=== PATIENT | male | born 1950 | race Hispanic/Latino ===

== ENCOUNTER 2017-04-22 12:06 | Inpatient (IN) | payer MEDICARE, OTHER ==
[2017-04-22 12:06] VITALS: BMI 25.7
[2017-04-22] MEDS ORDERED: Tdap Vaccine 0.5 ml Vial (10-64 yrs) IM ONE ×2 (12:50→13:59)
[2017-04-22] MEDS ORDERED: Piperacillin/Tazobact 4.5 GM in Sodium Chloride 0.9% 100 ML IVPB STA (12:51)
--- NOTE | 2017-04-22 12:58 | ED PDOC ---
Lower Extremity Pain/Injury Time Seen by Provider: 04/22/17 12:33 Chief Complaint (Nursing): Lower Extremity Problem/Injury Chief Complaint (Provider): R foot infection History Per: Patient History/Exam Limitations: no limitations Additional Complaint(s): Pt states he stepped on sharp metal object few days ago, was evaluated by Personnel Security Specialist and advised admission for IV Abx. Pt reports chills yesterday. Denies fever. Past Medical History Reviewed: Nursing Documentation, Vital Signs Vital Signs: Last Vital Signs Temp 98.0 F 04/22/17 12:12 Pulse 89 04/22/17 12:12 Resp 16 04/22/17 12:12 BP 132/70 04/22/17 12:12 Pulse Ox 100 04/22/17 12:12 - Medical History PMH: Diabetes - Family History Family History: States: Unknown Family Hx - Social History Current smoker - smoking cessation education provided: No - Home Medications Home Medications: Ambulatory Orders Medication Instructions Recorded Dulaglutide [Trulicity] 1.5 mg SC QWK 04/22/17 Insulin Detemir [Levemir] 60 - 70 unit SC HS 04/22/17 Insulin Lispro [Humalog Kwikpen 30 unit SC TIDPC 04/22/17 U-200] Ramipril [Altace] 10 mg PO DAILY 04/22/17 Testosterone Cypionate [Testone 1 ml IM Q14D 04/22/17 Cik] - Allergies Allergies/Adverse Reactions: Allergies Allergy/AdvReac Type Severity Reaction Status Date / Time No Known Allergies Allergy Verified 04/22/17 12:12 Review of Systems Constitutional: Positive for: Chills. Negative for: Fever, Weakness, Malaise Cardiovascular: Negative for: Chest Pain Respiratory: Negative for: Cough Musculoskeletal: Positive for: Foot Pain Skin: Positive for: Lesions. Negative for: Rash Neurological: Negative for: Weakness, Numbness Physical Exam - Reviewed Nursing Documentation Reviewed: Yes Vital Signs Reviewed: Yes - Physical Exam Appears: Positive for: Well, No Acute Distress Skin: Positive for: Normal Color, Warm, Dry Eye Exam: Positive for: Normal appearance, EOMI, PERRL Cardiovascular/Chest: Positive for: Regular Rate, Rhythm Respiratory: Positive for: Normal Breath Sounds Extremity: Positive for: Pedal Edema, Other (R FOOT: Ecchymosis 5th digit, macerated skin plantar aspect, edema, induration, no crepitus.) - Laboratory Results Result Diagrams: 04/22/17 13:45 04/22/17 13:45 - ECG Interpretation Of ECG: NSR @ 77, no ST-T changes. O2 Sat by Pulse Oximetry: 100 Pulse Ox Interpretation: Normal Medical Decision Making Medical Decision Makin yo male with R foot cellulitis and puncture wound. - labs - CXR - EKG - XR R foot - Vancomycin - Zosyn - Podiatry consult Time: 15:03 Chest X-Ray FINDINGS: LUNGS: Slightly diminished pulmonary volume causes some crowding of bilateral basilar bronchovascular markings. No infiltrate identified bilaterally. PLEURA: No significant pleural effusion identified. No pneumothorax apparent. CARDIOVASCULAR: Vascular markings appear increased and raise question potential CHF. Clinically correlate further. OSSEOUS STRUCTURES: No significant abnormalities. VISUALIZED UPPER ABDOMEN: Normal. OTHER FINDINGS: None. IMPRESSION: Mildly diminished inspiratory volume causes crowding of the bronchovascular markings bilaterally. Borderline CHF pattern. Time: 15:10 Right Foot X-Ray FINDINGS: BONES: Lucencies suspicious for osteomyelitis is noted at the medial proximal phalanx base 5th digit and the head of the 5th metatarsal medially. Chronic deformities of the distal 1st and 3rd mature metatarsals are appreciated which may be postoperative or post infectious from healed infections. Similar deformities are identified at the proximal portions of the 1st and 3rd phalanges as well. Postoperative changes seen status post ostectomy of the base of the proximal phalanx 2nd digit with limited deformity of the 2nd metatarsal distally. No focal erosions are appreciated or periosteal reaction to suggest active osteomyelitis at this time. Extensive soft tissue edema seen throughout the forefoot. MRI is advised for follow up to exclude potential osteomyelitis as plain film radiography can miss early osteomyelitis. No emphysematous soft tissue changes are appreciated to suggest gas producing bacterial organism. JOINTS: Degenerative changes are seen throughout the right foot joints not affected by postop or postinfectious changes described above. SOFT TISSUES: Normal. OTHER FINDINGS: None. IMPRESSION: Lucency at the base of the proximal phalanx 5th digit and also at the head of the 5th metacarpal metatarsal is suspicious for osteomyelitis. Follow-up MRI recommended. Deformity of multiple phalanges and dizziness identified as discussed above from postoperative or postinfectious changes likely now healed. Disposition - Clinical Impression Clinical Impression: Cellulitis in diabetic foot - Patient ED Disposition Is Patient to be Admitted: Yes - Disposition Disposition Time: 13:21 Condition: STABLE - Pt Status Changed To: Hospital Disposition Of: Inpatient - Admit Certification Admit to Inpatient:: After my assessment, the patient will require hospitalization for at least two midnights. This is because of the severity of symptoms shown, intensity of services needed, and/or the medical risk in this patient being treated as an outpatient. - POA Present On Arrival: None
--- NOTE | 2017-04-22 13:12 | CP.PCM.CON ---
History of Present Illness - History of Present Illness History of Present Illness: Podiatry Consult Note - Dr. Olmedo 67 year old male patient PMHx IDDM, HTN seen and evaluated in ED for right foot infection and 5th digit ischemia. Patient was sent to ED following his appointment with Dr. Olmedo earlier today. Patient reports last week Wednesday, while he was cleaning his garage, he stepped on a thin piece of wire that punctured his shoe and went into his foot; did not seek treatment at that time. Patient first noticed purple discoloration to his 5th toe yesterday, after he spent the day walking around with a sock jammed in the tip of his shoe. Patient also admits to seeing drainage from a wound on the bottom of his foot, and had been putting Neosporin in his wound until his scheduled appointment with Dr. Olmedo. Patient reports mild pain to his 4th and 5th toes. Admits to having chills and general malaise last night. Currently, denies N/V/F/D/C/SOB. PMHx: IDDM, HTN, hx of OM PSH: Right 2nd metatarsal head resection, right foot I&D, tonsilectomy FH: DM SH: admits to ETOH use, denies tobacco/illicit drug use All: NKDA Review of Systems - Review of Systems All systems: reviewed and no additional remarkable complaints except (as per HPI ) Past Patient History - Past Social History Smoking Status: Never Smoked - NEUROLOGICAL Hx Neurological Disorder: Yes Other/Comment: DIABETIC NEUROPATHY - ENDOCRINE/METABOLIC Hx Endocrine Disorders: Yes Hx Diabetes Mellitus Type 1: Yes - PSYCHIATRIC Hx Substance Use: No - SURGICAL HISTORY Hx Surgeries: Yes Hx Musculoskeletal Surgery: Yes (RT FOOT SURGERY) - ANESTHESIA Hx Anesthesia: Yes Hx Anesthesia Reactions: No Meds Allergies/Adverse Reactions: Allergies Allergy/AdvReac Type Severity Reaction Status Date / Time No Known Allergies Allergy Verified 04/22/17 12:12 - Medications Medications: Current Medications Vancomycin HCl 1 gm/ Sodium (Chloride) 250 mls @ 166.667 mls/hr IVPB STAT STA PRN Reason: Protocol Stop: 04/22/17 14:20 Piperacillin Sod/Tazobactam (Sod 4.5 gm/ Sodium Chloride) 100 mls @ 100 mls/hr IVPB STAT STA PRN Reason: Protocol Stop: 04/22/17 13:50 Physical Exam - Constitutional Appears: Well, Non-toxic, No Acute Distress - Extremities Exam Additional comments: RLE focused physical exam VASC: DP and PT pulses palpable 2/4. CFT <3 seconds to digits 1-4, unable to be assessed 5th digit. Temperature gradient warm to warm, mild increase in warmth around plantar ulceration, 5th digit cool to touch. Nonpitting edema noted to right foot. NEURO: Gross sensation diminished. DERM: Ulceration noted to plantar aspect of 4th interspace measuring approximately 0.5 x 0.5 x 3cm - ulcer noted to have a 100% granular base and erythema periwound; serosanguinous drainage noted; (-)probe to bone; absent purulence; overlying skin erosion; no fluctuance. Well-healed cicatrices on dorsum of 2nd metatarsal, 3rd IS, and sub met 2. ORTHO: Pain on palpation 4th digit, no pain on palpation 5th digit. Muscle strength 5/5 for all dorsiflexors, plantarflexors, inverters, and everters. - Neurological Exam Neurological exam: Alert, Oriented x3 - Psychiatric Exam Psychiatric exam: Normal Affect, Normal Mood Results - Vital Signs Recent Vital Signs: Last Vital Signs Temp 98.0 F 04/22/17 12:12 Pulse 89 04/22/17 12:12 Resp 16 04/22/17 12:12 BP 132/70 04/22/17 12:12 Pulse Ox 100 04/22/17 12:12 - Labs Result Diagrams: 04/22/17 13:45 04/22/17 13:45 Assessment & Plan - Assessment and Plan (Free Text) Assessment: 67 year old male with 1) right foot plantar ulceration secondary to trauma 2) 5th digit ischemia vs. gangrene Plan: Patient seen and evaluated Discussed with attending, Dr. Olmedo Afebrile, WBC 14.4, ESR 87 Right foot XR ordered: Lucency at the base of hte proximal phalanx 5th digit and also at the head of the 5th metatarsal is suspicious for OM Right foot plantar ulcer WCx obtained Received dose of Vancomycin and Zosyn in ED Patient to be admitted for right foot infx Cardio consult - Dr. Rankin ID consult - Dr. Dhaliwal Surgical shoe ordered - PWB to right heel only PT consult ordered Podiatry will continue to follow while in house
[2017-04-22 14:00] LABS: BASO % 0.3 % (0.0-2.0); EOS # 0.1 K/uL (0.0-0.7); EOS % 0.7 % (0.0-4.0); LYMPH # 0.7 K/uL (1.0-4.3); LYMPH % 4.9 % (20.0-40.0); MEAN CORPUSCULAR HEMOGLOBIN 34.3 pg (27.0-31.0); MEAN PLATELET VOLUME 8.7 fl (7.2-11.7); MONO # 1.6 K/uL (0.0-0.8); MONO % 11.3 % (0.0-10.0); NEUT # 11.9 K/uL (1.8-7.0); NEUT % 82.8 % (50.0-75.0); NRBC % 0.1 % (0.0-0.0); PLATELET COUNT 173 K/uL (130-400); RBC 4.39 Mil/uL (4.40-5.90); RED CELL DISTRIBUTION WIDTH 13.2 % (11.5-14.5); WHITE BLOOD COUNT 14.4 K/uL (4.8-10.8)
[2017-04-22 14:05] LABS: VENOUS BLOOD GAS BASE EXCESS 3.6 mmol/L (0.0-2.0); VENOUS BLOOD GAS PCO2 52 mmHg (40-60); VENOUS BLOOD GAS PO2 13 mm/Hg (30-55); VENOUS BLOOD PH 7.37 (7.32-7.43)
[2017-04-22 14:08] LABS: ALB/GLOB RATIO 1.2 (1.0-2.1); ALT/SGPT 31 U/L (21-72); AST/SGOT 28 U/L (17-59); BLOOD UREA NITROGEN 16 mg/dl (9-20); CALCIUM 9.5 mg/dL (8.4-10.2); GFR AFRICAN-AMERICAN > 60; GFR NON-AFRICAN AMERICAN > 60
[2017-04-22 14:11] LABS: INR 1.1 (0.9-1.2); PARTIAL THROMBOPLASTIN TIME 27.4 Seconds (25.6-37.1); PROTHROMBIN TIME 12.4 Seconds (9.8-13.1)
[2017-04-22 14:40] LABS: SQUAMOUS EPITHIAL 1 /hpf (0-5); URINE BILIRUBIN NEGATIVE (NEGATIVE); URINE BLOOD SMALL (NEGATIVE); URINE CLARITY SLIGHTY-CLOUDY (Clear); URINE COLOR YELLOW (YELLOW); URINE GLUCOSE (UA) 150 mg/dL (Normal); URINE LEUKOCYTE ESTERASE NEG Leu/uL (Negative); URINE PROTEIN 30 mg/dL (NEGATIVE); URINE UROBILINOGEN 0.2-1.0 mg/dL (0.2-1.0)
--- NOTE | 2017-04-22 15:05 | RAD ---
HISTORY: Admission COMPARISON: Chest radiographs 03/15/2012. TECHNIQUE: Chest PA and lateral FINDINGS: LUNGS: Slightly diminished pulmonary volume causes some crowding of bilateral basilar bronchovascular markings. No infiltrate identified bilaterally. PLEURA: No significant pleural effusion identified. No pneumothorax apparent. CARDIOVASCULAR: Vascular markings appear increased and raise question potential CHF. Clinically correlate further. OSSEOUS STRUCTURES: No significant abnormalities. VISUALIZED UPPER ABDOMEN: Normal. OTHER FINDINGS: None. IMPRESSION: Mildly diminished inspiratory volume causes crowding of the bronchovascular markings bilaterally. Borderline CHF pattern.
--- NOTE | 2017-04-22 15:11 | RAD ---
PROCEDURE: Right Foot Radiographs. HISTORY: Puncture wound COMPARISON: Right foot radiographs 03/16/2012 prior FINDINGS: BONES: Lucencies suspicious for osteomyelitis is noted at the medial proximal phalanx base 5th digit and the head of the 5th metatarsal medially. Chronic deformities of the distal 1st and 3rd mature metatarsals are appreciated which may be postoperative or post infectious from healed infections. Similar deformities are identified at the proximal portions of the 1st and 3rd phalanges as well. Postoperative changes seen status post ostectomy of the base of the proximal phalanx 2nd digit with limited deformity of the 2nd metatarsal distally. No focal erosions are appreciated or periosteal reaction to suggest active osteomyelitis at this time. Extensive soft tissue edema seen throughout the forefoot. MRI is advised for follow up to exclude potential osteomyelitis as plain film radiography can miss early osteomyelitis. No emphysematous soft tissue changes are appreciated to suggest gas producing bacterial organism. JOINTS: Degenerative changes are seen throughout the right foot joints not affected by postop or postinfectious changes described above. SOFT TISSUES: Normal. OTHER FINDINGS: None. IMPRESSION: Lucency at the base of the proximal phalanx 5th digit and also at the head of the 5th metacarpal metatarsal is suspicious for osteomyelitis. Follow-up MRI recommended. Deformity of multiple phalanges and dizziness identified as discussed above from postoperative or postinfectious changes likely now healed.
[2017-04-22 15:23] LABS: LYMPHOCYTE 4 % (20-50); MONOCYTE 10 % (0-10); NEUTROPHIL 86 % (42-75); PLATELET ESTIMATE NORMAL (NORMAL); TOTAL CELLS COUNTED 100
--- NOTE | 2017-04-22 18:10 | CP.PCM.HP ---
History of Present Illness - History of Present Illness History of Present Illness: Cc: Right foot wound A 67 year old male with a pmhx of IDDM type 2, diabetic neuropathy and previous right foot surgery who was sent to the ED by his business practices supervisor for right foot cellulitis and puncture wound with drainage. The patient states he stepped on a sharp metal a few days ago in his garage but did not notice any wound until a couple of days ago when he noticed a purplish discoloration to his 5th right digit. States he had an appt with his business practices supervisor so just decide to wait until the appointment. Denies pain or inability to walk. Denies fever, chills, cp, sob , nausea or vomiting. Present on Admission - Present on Admission Any Indicators Present on Admission: Yes History of Uncontrolled Diabetes: Yes Review of Systems - Review of Systems All systems: reviewed and no additional remarkable complaints except (as stated) - Constitutional Constitutional: As Per HPI - Cardiovascular Cardiovascular: As Per HPI - Respiratory Respiratory: As Per HPI - Gastrointestinal Gastrointestinal: As Per HPI - Musculoskeletal Musculoskeletal: As Per HPI - Integumentary Integumentary: As Per HPI - Neurological Neurological: As Per HPI - Endocrine Endocrine: As Per HPI Past Patient History - Past Medical History & Family History Past Medical History?: Yes - Past Social History Smoking Status: Never Smoked - NEUROLOGICAL Hx Neurological Disorder: Yes Other/Comment: DIABETIC NEUROPATHY - ENDOCRINE/METABOLIC Hx Endocrine Disorders: Yes Hx Diabetes Mellitus Type 1: Yes - MUSCULOSKELETAL/RHEUMATOLOGICAL Hx Falls: No - PSYCHIATRIC Hx Substance Use: No - SURGICAL HISTORY Hx Surgeries: Yes Hx Musculoskeletal Surgery: Yes (RT FOOT SURGERY) - ANESTHESIA Hx Anesthesia: Yes Hx Anesthesia Reactions: No Meds Allergies/Adverse Reactions: Allergies Allergy/AdvReac Type Severity Reaction Status Date / Time No Known Allergies Allergy Verified 04/22/17 12:12 Physical Exam - Constitutional Appears: Well, No Acute Distress - Head Exam Head Exam: ATRAUMATIC, NORMOCEPHALIC - Eye Exam Eye Exam: EOMI, Normal appearance, PERRL Pupil Exam: NORMAL ACCOMODATION - ENT Exam ENT Exam: Mucous Membranes Moist - Neck Exam Neck exam: Positive for: Full Rom, Normal Inspection - Respiratory Exam Respiratory Exam: Clear to Auscultation Bilateral, NORMAL BREATHING PATTERN - Cardiovascular Exam Cardiovascular Exam: REGULAR RHYTHM, +S1, +S2 - GI/Abdominal Exam GI & Abdominal Exam: Normal Bowel Sounds, Soft - Rectal Exam Rectal Exam: Deferred - Extremities Exam Extremities exam: Positive for: pedal pulses present Additional comments: Right LE wound on the ball of the foot, serous drainage noted. Swelling and cellulitis around the wound B/l extremities warm to touch with slight skin discoloration on lower parts of both legs - Back Exam Back exam: FULL ROM, NORMAL INSPECTION - Neurological Exam Neurological exam: Alert, Oriented x3 - Psychiatric Exam Psychiatric exam: Normal Affect, Normal Mood - Skin Skin Exam: Dry, Normal Color, Warm Results - Vital Signs Recent Vital Signs: Last Vital Signs Temp 98.5 F 04/22/17 16:28 Pulse 81 04/22/17 16:28 Resp 20 04/22/17 16:28 BP 143/78 04/22/17 16:28 Pulse Ox 100 04/22/17 16:45 - Labs Result Diagrams: 04/24/17 05:30 04/23/17 05:55 Labs: Laboratory Results - last 24 hr 04/22/17 04/22/17 04/22/17 13:45 13:45 13:45 WBC 14.4 H RBC 4.39 L Hgb 15.0 Hct 44.3 MCV 101.0 H MCH 34.3 H MCHC 34.0 RDW 13.2 Plt Count 173 MPV 8.7 Neut % (Auto) 82.8 H Lymph % (Auto) 4.9 L [place] % (Auto) 11.3 H Eos % (Auto) 0.7 Baso % (Auto) 0.3 Neut # (Auto) 11.9 H Lymph # (Auto) 0.7 L [place] # (Auto) 1.6 H Eos # (Auto) 0.1 Baso # (Auto) 0.0 Neutrophils % (Manual) 86 H Lymphocytes % (Manual) 4 L Monocytes % (Manual) 10 Platelet Estimate Normal Macrocytosis (manual) Slight ESR 87 H PT 12.4 INR 1.1 APTT 27.4 pO2 VBG pH VBG pCO2 VBG HCO3 VBG Total CO2 VBG O2 Sat (Calc) VBG Base Excess VBG Potassium Glucose Lactate FiO2 Sodium 137 Potassium 3.6 Chloride 97 L Carbon Dioxide 27 Anion Gap 17 BUN 16 Creatinine 0.8 Est GFR ( Amer) > 60 Est GFR (Non-Af Amer) > 60 Random Glucose 161 H Calcium 9.5 Total Bilirubin 1.1 AST 28 ALT 31 Alkaline Phosphatase 80 Total Protein 7.5 Albumin 4.0 Globulin 3.5 Albumin/Globulin Ratio 1.2 Venous Blood Potassium Urine Color Urine Clarity Urine pH Ur Specific Harmans Urine Protein Urine Glucose (UA) Urine Ketones Urine Blood Urine Nitrate Urine Bilirubin Urine Urobilinogen Ur Leukocyte Esterase Urine RBC (Auto) Urine Microscopic WBC Ur Squamous Epith Cells 04/22/17 04/22/17 14:00 14:15 WBC RBC Hgb Hct MCV MCH MCHC RDW Plt Count MPV Neut % (Auto) Lymph % (Auto) [place] % (Auto) Eos % (Auto) Baso % (Auto) Neut # (Auto) Lymph # (Auto) [place] # (Auto) Eos # (Auto) Baso # (Auto) Neutrophils % (Manual) Lymphocytes % (Manual) Monocytes % (Manual) Platelet Estimate Macrocytosis (manual) ESR PT INR APTT pO2 13 L VBG pH 7.37 VBG pCO2 52 VBG HCO3 25.5 VBG Total CO2 31.7 H VBG O2 Sat (Calc) 20.1 L VBG Base Excess 3.6 H VBG Potassium 3.3 L Glucose 161 H Lactate 1.6 FiO2 21.0 Sodium 134.0 Potassium Chloride 99.0 Carbon Dioxide Anion Gap BUN Creatinine Est GFR ( Amer) Est GFR (Non-Af Amer) Random Glucose Calcium Total Bilirubin AST ALT Alkaline Phosphatase Total Protein Albumin Globulin Albumin/Globulin Ratio Venous Blood Potassium 3.3 L Urine Color Yellow Urine Clarity Slighty-cloudy Urine pH 6.0 Ur Specific Harmans 1.025 Urine Protein 30 Urine Glucose (UA) 150 Urine Ketones 20 Urine Blood Small Urine Nitrate Negative Urine Bilirubin Negative Urine Urobilinogen 0.2-1.0 Ur Leukocyte Esterase Neg Urine RBC (Auto) 8 H Urine Microscopic WBC 2 Ur Squamous Epith Cells 1 - Imaging and Cardiology Foot x-ray Additional comment: PROCEDURE: Right Foot Radiographs. HISTORY: Puncture wound COMPARISON: Right foot radiographs 03/16/2012 prior FINDINGS: BONES: Lucencies suspicious for osteomyelitis is noted at the medial proximal phalanx base 5th digit and the head of the 5th metatarsal medially. Chronic deformities of the distal 1st and 3rd mature metatarsals are appreciated which may be postoperative or post infectious from healed infections. Similar deformities are identified at the proximal portions of the 1st and 3rd phalanges as well. Postoperative changes seen status post ostectomy of the base of the proximal phalanx 2nd digit with limited deformity of the 2nd metatarsal distally. No focal erosions are appreciated or periosteal reaction to suggest active osteomyelitis at this time. Extensive soft tissue edema seen throughout the forefoot. MRI is advised for follow up to exclude potential osteomyelitis as plain film radiography can miss early osteomyelitis. No emphysematous soft tissue changes are appreciated to suggest gas producing bacterial organism. JOINTS: Degenerative changes are seen throughout the right foot joints not affected by postop or postinfectious changes described above. SOFT TISSUES: Normal. OTHER FINDINGS: None. IMPRESSION: Lucency at the base of the proximal phalanx 5th digit and also at the head of the 5th metacarpal metatarsal is suspicious for osteomyelitis. Follow-up MRI recommended. Deformity of multiple phalanges and dizziness identified as discussed above from postoperative or postinfectious changes likely now healed. Chest x-ray Additional comment: COMPARISON: Chest radiographs 03/15/2012. TECHNIQUE: Chest PA and lateral FINDINGS: LUNGS: Slightly diminished pulmonary volume causes some crowding of bilateral basilar bronchovascular markings. No infiltrate identified bilaterally. PLEURA: No significant pleural effusion identified. No pneumothorax apparent. CARDIOVASCULAR: Vascular markings appear increased and raise question potential CHF. Clinically correlate further. OSSEOUS STRUCTURES: No significant abnormalities. VISUALIZED UPPER ABDOMEN: Normal. OTHER FINDINGS: None. IMPRESSION: Mildly diminished inspiratory volume causes crowding of the bronchovascular markings bilaterally. Borderline CHF pattern. [ Reading ] [ Conclusion ] Assessment & Plan (1) Cellulitis in diabetic foot Status: Acute Priority: High (2) Osteomyelitis Status: Acute Priority: High (3) Diabetes mellitus with hyperglycemia Status: Acute - Assessment and Plan (Free Text) Assessment: 67 year old male with right foot cellulitis and puncture wound with possible osteomyelitis. Plan: Foot x-ray - suspicion for Osteomyelitis F/u MRI wound cultures Antibiotics with Vanco and Zosyn ID consult Podiatry follow up Endocrinology consult Cardiovascular consult DVT prophylaxis
[2017-04-22] MEDS ORDERED: Gadodiamide 287 MG/ML VIAL (15ML) IV ONE (18:56)
[2017-04-22] MEDS: Insulin Detemir 100 Units/ml Inj SC SCH (21:40)
[2017-04-22] MEDS ORDERED: Insulin Lispro (humaLOG) 100 Units/ml Inj SC SCH (22:00)
[2017-04-23] MEDS: Piperacillin/Tazobact 3.375 GM in Sodium Chloride 0.9% 100 ML IVPB SCH ×3 (01:19→17:08)
--- NOTE | 2017-04-23 02:07 | CON ---
ENDOCRINOLOGY CONSULTATION DATE: LOCATION: Room 662. HISTORY OF PRESENT ILLNESS: This is a 67-year-old male, very well-known to me from outpatient diabetic followup who presents to his [employer] today with a right foot plantar ulceration with supervening cellulitis and has now been admitted for further workup and management and is also being referred for diabetic evaluation and management. PAST MEDICAL HISTORY: As mentioned above; history of type 2 insulin-requiring diabetes on a combination of Humalog given as 30 units subcu t.i.d. before meals with Levemir, actually it has been changed to Tresiba at 70 units subcu at bedtime daily as ordered. He is also on Trulicity given as 1.5 mg subcu once a week as ordered, history of hypertensive cardiovascular disease and dyslipidemia, history of erectile dysfunction and secondary hypogonadism and currently on testosterone cypionate injections given every 2 weeks as ordered. His latest hemoglobin A1c done in the fall of last year was actually 9.2% which is actually elevated with suboptimal metabolic control as noted. History of diabetic polyneuropathy with underlying vasculopathy. He also had prior history of right lower extremity cellulitis and osteomyelitis and resection of the second digit in the right foot as noted. FAMILY HISTORY: Positive for hypertension and heart disease. SOCIAL HISTORY: The patient is and has a supportive and family. No known substance use. REVIEW OF SYSTEMS: As mentioned above; admits to episodic bouts of dizziness and lightheadedness with easy fatigability and tiredness and suboptimal energy level. No chest pains or palpitations or PND. His oral intake has been good with occasional dietary indiscretion. No recent alterations of bowel and urinary patterns. PHYSICAL EXAMINATION GENERAL: This is an average built male in no apparent distress. VITAL SIGNS: Blood pressure of 130/80, pulse of 70 beats per minute regular, temperature 98, respirations 20, height is 6 feet 2 inches and weight is 250 pounds. HEENT: Head normocephalic. Eyes anicteric with pink conjunctivae. Funduscopy not possible at this time. Ears, nose and throat otherwise normal. NECK: Supple. Thyroid gland is normal in size. No carotid bruits or cervical adenopathy. CARDIOPULMONARY: Some adynamic precordium. S1 and S2 is rapid and regular. LUNGS: Clear to auscultation. ABDOMEN: Flat and soft with positive bowel sounds. EXTREMITIES: No peripheral edema. Pulses are +2 bilaterally and the right foot shows a plantar ulceration in the fifth metatarsal area with serosanguineous discharge as noted and surrounding erythema, edema and induration as noted. LABORATORY DATA: His white count is 14.4, hemoglobin of 15, hematocrit of 44, MCV 101 and platelets 173. Sed rate is 87 and neutrophil count is 82.8. Chemistry showed a BUN of 16, sodium 137, potassium 3.6, chloride 97, CO2 of 27, glucose one 61 and creatinine 0.8. ASSESSMENT: This is a 67-year-old male with uncontrolled and decompensated type 2 insulin-requiring diabetes presenting here with a right foot cellulitis and concomitant neuropathic plantar ulceration with possible ischemia in the right fifth digit as noted. He has significant history of diabetic polyneuropathy and underlying peripheral arterial disease and vasculopathy. PLAN OF MANAGEMENT: As discussed with the patient and staff, we will modify his current insulin regimen and switch him over to a more physiologic basal and bolus insulin drug combination as ordered. We will start him with Humalog given as 12 units subcu t.i.d. before meals as ordered. We will continue the basal insulin given as Levemir at 60 units subcu at bedtime daily as ordered. We will modify the coverage scale to a very low dose algorithm using Humalog insulin to hypoglycemia and detailed orders have been given. A hemoglobin A1c will be done to confirm his prior glycemic control and baseline thyroid function studies and lipid panel have been ordered. We will also add a total and free testosterone level with a LH and FSH and prolactin hormonal assays added for tomorrows labs as noted. We will initiate diabetic education and dietary instructions also at the time of this admission. We will follow and advise accordingly. Nanette Blake MD
[2017-04-23 06:41] LABS: BASO % 0.4 % (0.0-2.0); EOS # 0.2 K/uL (0.0-0.7); EOS % 1.7 % (0.0-4.0); HEMOGLOBIN 14.2 g/dL (12.0-18.0); LYMPH # 0.8 K/uL (1.0-4.3); LYMPH % 7.8 % (20.0-40.0); MEAN CELL VOLUME 101.6 fl (80.0-94.0); MEAN CORPUSCULAR HEMOGLOBIN 34.7 pg (27.0-31.0); MEAN CORPUSCULAR HGB CONC 34.1 g/dL (33.0-37.0); MONO # 1.4 K/uL (0.0-0.8); MONO % 12.9 % (0.0-10.0); NEUT # 8.4 K/uL (1.8-7.0); NEUT % 77.2 % (50.0-75.0); RBC 4.09 Mil/uL (4.40-5.90); WHITE BLOOD COUNT 10.8 K/uL (4.8-10.8)
[2017-04-23 06:53] LABS: BLOOD UREA NITROGEN 12 mg/dl (9-20); CALCIUM 8.9 mg/dL (8.4-10.2); GFR AFRICAN-AMERICAN > 60; GFR NON-AFRICAN AMERICAN > 60; HDL CHOLESTEROL 24 MG/DL (30-70)
[2017-04-23 06:59] LABS: LDL CHOLESTEROL 116 mg/dL (0-129)
[2017-04-23 07:04] LABS: FSH < 0.7 mIU/mL
[2017-04-23] MEDS: Insulin Lispro (humaLOG) 100 Units/ml Inj SC SCH ×7 (07:26→21:29)
--- NOTE | 2017-04-23 08:27 | CP.PCM.PN ---
Subjective - Date & Time of Evaluation Date of Evaluation: 04/23/17 Time of Evaluation: 08:24 - Subjective Subjective: Podiatry Progress Note - Dr. Olmedo 67 year old male patient seen and evaluated at bedside for right foot infection and 5th digit ischemia. Patient hemodynamically stable and NAD. Sister and present at bedside. No acute events overnight. Dressing soaked through with drainage. Denies any pain to right foot. Denies N/V/F/D/C/SOB/calf pain. Objective - Vital Signs/Intake and Output Vital Signs (last 24 hours): Temp Pulse Resp BP Pulse Ox 98.5 F 79 19 131/75 96 04/23/17 08:11 04/23/17 08:11 04/23/17 08:11 04/23/17 08:11 04/23/17 08:11 - Medications Medications: Current Medications Enoxaparin Sodium (Lovenox) 40 mg SC DAILY [facility] PRN Reason: Protocol Home Med (Dulaglutide [Trulicity]) 1.5 mg SC QWK [facility] Piperacillin Sod/Tazobactam (Sod 3.375 gm/ Sodium Chloride) 100 mls @ 100 mls/ hr IVPB Q8 [facility] PRN Reason: Protocol Last Admin: 04/23/17 01:19 Dose: 100 mls/hr Vancomycin HCl 1 gm/ Sodium (Chloride) 250 mls @ 250 mls/hr IVPB Q12@0200,1400 [facility] PRN Reason: Protocol Last Admin: 04/23/17 02:28 Dose: 250 mls/hr Influenza Virus Vaccine (Afluria (Pf)(18yr & Older)) 0.5 ml IM .ONCE ONE Stop: 04/23/17 09:01 Insulin Detemir (Levemir) 60 units SC HS [facility] Last Admin: 04/22/17 21:40 Dose: 60 units Insulin Human Lispro (Humalog) 0 units SC ACHS [facility] PRN Reason: Protocol Last Admin: 04/23/17 07:26 Dose: Not Given Insulin Human Lispro (Humalog) 12 units SC AC [facility] Ramipril (Altace) 10 mg PO DAILY [facility] - Labs Labs: 04/23/17 05:55 04/23/17 05:55 PT 12.4 Seconds (9.8-13.1) 04/22/17 13:45 INR 1.1 (0.9-1.2) 04/22/17 13:45 APTT 27.4 Seconds (25.6-37.1) 04/22/17 13:45 - Constitutional Appears: Well, Non-toxic, No Acute Distress - Extremities Exam Additional comments: RLE focused physical exam VASC: DP and PT pulses palpable 2/4. CFT <3 seconds to digits 1-4, unable to be assessed 5th digit. Temperature gradient warm to warm, mild increase in warmth around plantar ulceration, 5th digit cool to touch. Nonpitting edema noted to right foot. NEURO: Gross sensation diminished. DERM: Ulceration noted to plantar aspect of 4th interspace measuring approximately 0.5 x 0.5 x 3cm - ulcer noted to have a 100% granular base and erythema periwound; serosanguinous drainage noted; (-)probe to bone; absent purulence; overlying skin erosion; no fluctuance. Dusky/ischemic discoloration noted to 5th digit with necrotic tissue to medial aspect. Well-healed cicatrices on dorsum of 2nd metatarsal, 3rd IS, and sub met 2. ORTHO: Pain on palpation 4th digit, no pain on palpation 5th digit. Muscle strength 5/5 for all dorsiflexors, plantarflexors, inverters, and everters. - Neurological Exam Neurological Exam: Alert, Awake, Oriented x3 - Psychiatric Exam Psychiatric exam: Normal Affect, Normal Mood Assessment and Plan - Assessment and Plan (Free Text) Assessment: 67 year old male with 1) right foot plantar ulceration secondary to trauma 2) 5th digit ischemia vs. gangrene Plan: Patient seen and evaluated with attending, Dr. Olmedo Afebrile, WBC 10.8, ESR 87 Right foot XR (04/22/17): Lucency at the base of the proximal phalanx 5th digit and also at the head of the 5th metatarsal is suspicious for OM Right foot MRI (04/22/17): Osteomyelitis at the proximal phalanx great toe and at the distal segment of the 1st metatarsal bone with phlegmon or abscess at 1st MPJ likely. Early OM not completely excluded at distal segment 5th metatarsal bone and proximal phalanx of digit. Diffuse cellulitis throughout forefoot evident Bilateral arterial duplex (04/22/17) -No significant stenosis identified at the bilateral lower extremity major arteries although low velocity but triphasic waveform is identified at the left anterior tibial a. -Above the bilateral DP arteries appear widely patent as well as the posterior tibia arteries Right foot plantar ulcer WCx - (prelim) gram positive cocci Continue IV abx - Vancomycin 1g IV, Zosyn 3.375g IV ID consult - Dr. Dhaliwal, recs appreciated f/u Cardio consult - Dr. Rankin Possible OR Wednesday pending vascular eval Surgical shoe ordered - PWB to right heel only PT consult ordered Right foot cleansed with sterile saline and dressed with DSD Podiatry will continue to follow while in house
[2017-04-23] MEDS ORDERED: Influenza Vaccine 18yr & older 0.5 ML/45 MCG SYR IM ONE (09:00)
[2017-04-23] MEDS: Enoxaparin 40 mg Syringe SC SCH (09:50)
--- NOTE | 2017-04-23 10:59 | US ---
PROCEDURE: Duplex ultrasound of the bilateral lower extremity arteries. HISTORY: Right %th Toe Gangrene COMPARISON: None available. TECHNIQUE: Grayscale and duplex Doppler evaluation of the bilateral common femoral, superficial femoral, popliteal, posterior tibial and dorsalis pedis arteries was performed.. FINDINGS: RIGHT LOWER EXTREMITY: RIGHT COMMON FEMORAL ARTERY: Widely patent. Maximal flow velocity of 112 cm/s. RIGHT SUPERFICIAL FEMORAL ARTERY: Widely patent. Maximal flow velocity of 129 cm/s. RIGHT POPLITEAL ARTERY:Widely patent. Maximal flow velocity of 130 cm/s. RIGHT POSTERIOR TIBIAL ARTERY: Widely patent. Maximal flow velocity of 79 cm/s. RIGHT DORSALIS PEDIS ARTERY: Widely patent. Maximal flow velocity of 59 cm/s. The ANTERIOR TIBIAL ARTERY appears widely patent and measures 118 centimeters/second. LEFT LOWER EXTREMITY: LEFT COMMON FEMORAL ARTERY: Widely patent. Maximal flow velocity of 131 cm/s. LEFT SUPERFICIAL FEMORAL ARTERY: Widely patent. Maximal flow velocity of 89 cm/s. LEFT POPLITEAL ARTERY:Widely patent. Maximal flow velocity of 67 cm/s. LEFT POSTERIOR TIBIAL ARTERY: Widely patent. Maximal flow velocity of 113 cm/s. LEFT DORSALIS PEDIS ARTERY: Widely patent. Maximal flow velocity of 75 cm/s. The ANTERIOR TIBIAL ARTERY appears triphasic and is patent though with a low velocity of 28 centimeters/second. OTHER FINDINGS: None. IMPRESSION: No significant stenosis identified at the bilateral lower extremity major arteries although low velocity but triphasic waveform is identified at the left anterior tibial artery. Above the bilateral dorsalis pedis arteries appear widely patent as well as the posterior tibial arteries.
--- NOTE | 2017-04-23 12:42 | CP.PCM.CON ---
History of Present Illness - History of Present Illness History of Present Illness: 67 year old male patient PMHx IDDM, HTN seen and evaluated in ED for right foot infection and 5th digit ischemia. Patient reports last week Wednesday, while he was cleaning his garage, he stepped on a thin piece of wire that punctured his shoe and went into his foot; did not seek treatment at that time. Patient first noticed purple discoloration to his 5th toe yesterday, after he spent the day walking around with a sock jammed in the tip of his shoe. Patient also admits to seeing drainage from a wound on the bottom of his foot, and had been putting Neosporin in his wound Admits to having chills and general malaise last night. Currently, denies N/V/F/D/C/SOB. PMHx: IDDM, HTN, hx of OM PSH: Right 2nd metatarsal head resection, right foot I&D, tonsilectomy FH: DM SH: admits to ETOH use, denies tobacco/illicit drug use All: NKDA Review of Systems - Review of Systems All systems: reviewed and no additional remarkable complaints except - Constitutional Constitutional: As Per HPI - EENT Eyes: absent: As Per HPI, Blind Spots, Blurred Vision, Change in Vision, Decreased Night Vision, Diplopia, Discharge, Dry Eye, Exophthalmos, Floaters, Irritation, Itchy Eyes, Loss of Peripheral Vision, Pain, Photophobia, Requires Corrective Lenses, Sees Flashes, Spots in Vision, Tunnel Vision, Other Visual Disturbances, Loss of Vision, Other Ears: absent: As Per HPI, Decreased Hearing, Ear Discharge, Ear Pain, Tinnitus, Abnormal Hearing, Disequilibrium, Dizziness, Other Nose/Mouth/Throat: absent: As Per HPI, Epistaxis, Nasal Congestion, Nasal Discharge, Nasal Obstruction, Nasal Trauma, Nose Pain, Post Nasal Drip, Sinus Pain, Sinus Pressure, Bleeding Gums, Change in Voice, Dental Pain, Dry Mouth, Dysphagia, Halitosis, Hoarsness, Lip Swelling, Mouth Lesions, Mouth Pain, Odynophagia, Sore Throat, Throat Swelling, Tongue Swelling, Facial Pain, Neck Pain, Neck Mass, Other - Cardiovascular Cardiovascular: absent: As Per HPI, Acrocyanosis, Chest Pain, Chest Pain at Rest , Chest Pain with Activity, Claudication, Diaphoresis, Dyspnea, Dyspnea on Exertion, Edema, Irregular Heart Rhythm, Pain Radiating to Arm/Neck/Jaw, Leg Edema, Leg Ulcers, Lightheadedness, Orthopnea, Palpitations, Paroxysmal Nocturnal Dyspnea, Pedal Edema, Radiating Pain, Rapid Heart Rate, Slow Heart Rate, Syncope, Other - Respiratory Respiratory: absent: As Per HPI, Cough, Dyspnea, Hemoptysis, Dyspnea on Exertion , Wheezing, Snoring, Stridor, Pain on Inspiration, Chest Congestion, Excessive Mucous Production, Change in Mucous Color, Pain with Coughing, Other - Gastrointestinal Gastrointestinal: absent: As Per HPI, Abdominal Pain, Belching, Bloating, Change in Bowel Habits, Change in Stool Character, Coffee Ground Emesis, Constipation, Cramping, Diarrhea, Dyspepsia, Dysphagia, Early Satiety, Excessive Flatus, Fecal Incontinence, Heartburn, Hematemesis, Hematochezia, Loose Stools, Melena, Nausea, Odynophagia, Temesmus, Vomiting, Other - Genitourinary Genitourinary: absent: As Per HPI, Change in Urinary Stream, Difficulty Urinating, Dysuria, Flank Pain, Hematuria, Pyuria, Nocturia, Urinary Incontinence, Urinary Frequency, Urinary Hesitance, Urinary Urgency, Voiding Freq/Small Amts, Freq UTI, Hx Renal/Bladder Calculi, Hx /Renal Surgery, Bladder Distension, Other - Musculoskeletal Musculoskeletal: As Per HPI - Integumentary Integumentary: As Per HPI, Skin Pain, Wounds - Neurological Neurological: As Per HPI - Psychiatric Psychiatric: absent: As Per HPI, Abnormal Sleep Pattern, Anhedonia, Anxiety, Auditory Hallucinations, Behavioral Changes, Change in Appetite, Change in Libido, Confusion, Depression, Difficulty Concentrating, Hallucinations, Homicidal Ideation, Hopelessness, Irritability, Memory Loss, Mood Swings, Panic Attacks, Paranoia, Suicidal Ideation, Visual Hallucinations, Tactile Hallucinations, Other - Endocrine Endocrine: absent: As Per HPI, Change in Body Appearance, Change in Libido, Cold Intolorance, Deepening of Voice, Excessive Sweating, Fatigue, Flushing, Heat Intolorance, Increase in Ring/Shoe/Hat Size, Palpitations, Polydipsia, Polyphagia, Polyuria, Other - Hematologic/Lymphatic Hematologic: absent: As Per HPI, Easy Bleeding, Easy Bruising, Lymphadenopathy, Other Past Patient History - Past Medical History & Family History Past Medical History?: Yes - Past Social History Smoking Status: Never Smoked - NEUROLOGICAL Hx Neurological Disorder: Yes Other/Comment: DIABETIC NEUROPATHY - ENDOCRINE/METABOLIC Hx Endocrine Disorders: Yes Hx Diabetes Mellitus Type 1: Yes - MUSCULOSKELETAL/RHEUMATOLOGICAL Hx Falls: No - PSYCHIATRIC Hx Substance Use: No - SURGICAL HISTORY Hx Surgeries: Yes Hx Musculoskeletal Surgery: Yes (RT FOOT SURGERY) - ANESTHESIA Hx Anesthesia: Yes Hx Anesthesia Reactions: No Meds Allergies/Adverse Reactions: Allergies Allergy/AdvReac Type Severity Reaction Status Date / Time No Known Allergies Allergy Verified 04/22/17 12:12 - Medications Medications: Current Medications Enoxaparin Sodium (Lovenox) 40 mg SC DAILY [facility] PRN Reason: Protocol Last Admin: 04/23/17 09:50 Dose: 40 mg Home Med (Dulaglutide [Trulicity]) 1.5 mg SC QWK [facility] Piperacillin Sod/Tazobactam (Sod 3.375 gm/ Sodium Chloride) 100 mls @ 100 mls/ hr IVPB Q8 [facility] PRN Reason: Protocol Last Admin: 04/23/17 09:49 Dose: 100 mls/hr Vancomycin HCl 1 gm/ Sodium (Chloride) 250 mls @ 250 mls/hr IVPB Q12@0200,1400 [facility] PRN Reason: Protocol Last Admin: 04/23/17 02:28 Dose: 250 mls/hr Insulin Detemir (Levemir) 60 units SC HS [facility] Last Admin: 04/22/17 21:40 Dose: 60 units Insulin Human Lispro (Humalog) 0 units SC ACHS [facility] PRN Reason: Protocol Last Admin: 04/23/17 12:29 Dose: Not Given Insulin Human Lispro (Humalog) 12 units SC AC [facility] Last Admin: 04/23/17 12:29 Dose: 12 units Ramipril (Altace) 10 mg PO DAILY [facility] Last Admin: 04/23/17 09:50 Dose: 10 mg Physical Exam - Constitutional Appears: Non-toxic, Chronically Ill - Head Exam Head Exam: NORMOCEPHALIC - Eye Exam Eye Exam: PERRL. absent: Scleral icterus - ENT Exam ENT Exam: Mucous Membranes Dry, Normal External Ear Exam, Normal Oropharynx - Neck Exam Neck exam: Negative for: Lymphadenopathy - Respiratory Exam Respiratory Exam: Decreased Breath Sounds, Clear to Auscultation Bilateral - Cardiovascular Exam Cardiovascular Exam: REGULAR RHYTHM, +S1, +S2 - GI/Abdominal Exam GI & Abdominal Exam: Diminished Bowel Sounds, Soft. absent: Tenderness - Rectal Exam Rectal Exam: Deferred - Exam Exam: NORMAL INSPECTION - Extremities Exam Extremities exam: Positive for: pedal edema, pedal pulses present. Negative for : calf tenderness, tenderness Additional comments: RLE focused physical exam VASC: DP and PT pulses palpable 2/4. CFT <3 seconds to digits 1-4, unable to be assessed 5th digit. Temperature gradient warm to warm, mild increase in warmth around plantar ulceration, 5th digit cool to touch. Nonpitting edema noted to right foot. NEURO: Gross sensation diminished. DERM: Ulceration noted to plantar aspect of 4th interspace measuring approximately 0.5 x 0.5 x 3cm - ulcer noted to have a 100% granular base and erythema periwound; serosanguinous drainage noted; (-)probe to bone; absent purulence; overlying skin erosion; no fluctuance. Well-healed cicatrices on dorsum of 2nd metatarsal, 3rd IS, and sub met 2. ORTHO: Pain on palpation 4th digit, no pain on palpation 5th digit. Muscle strength 5/5 for all dorsiflexors, plantarflexors, inverters, and everters. - Back Exam Back exam: absent: CVA tenderness (L), CVA tenderness (R), paraspinal tenderness - Neurological Exam Neurological exam: Alert, CN II-XII Intact, Oriented x3, Reflexes Normal - Psychiatric Exam Psychiatric exam: Depressed - Skin Skin Exam: Dry Results - Vital Signs Recent Vital Signs: Last Vital Signs Temp 98.5 F 04/23/17 08:11 Pulse 79 04/23/17 08:11 Resp 19 04/23/17 08:11 BP 131/75 04/23/17 09:50 Pulse Ox 96 04/23/17 08:11 - Labs Result Diagrams: 04/23/17 05:55 04/23/17 05:55 Labs: Laboratory Results - last 24 hr 04/22/17 04/22/17 04/22/17 13:45 13:45 13:45 WBC 14.4 H RBC 4.39 L Hgb 15.0 Hct 44.3 MCV 101.0 H MCH 34.3 H MCHC 34.0 RDW 13.2 Plt Count 173 MPV 8.7 Neut % (Auto) 82.8 H Lymph % (Auto) 4.9 L Cannon % (Auto) 11.3 H Eos % (Auto) 0.7 Baso % (Auto) 0.3 Neut # (Auto) 11.9 H Lymph # (Auto) 0.7 L Cannon # (Auto) 1.6 H Eos # (Auto) 0.1 Baso # (Auto) 0.0 Neutrophils % (Manual) 86 H Lymphocytes % (Manual) 4 L Monocytes % (Manual) 10 Platelet Estimate Normal Macrocytosis (manual) Slight ESR 87 H PT 12.4 INR 1.1 APTT 27.4 pO2 VBG pH VBG pCO2 VBG HCO3 VBG Total CO2 VBG O2 Sat (Calc) VBG Base Excess VBG Potassium Glucose Lactate FiO2 Sodium 137 Potassium 3.6 Chloride 97 L Carbon Dioxide 27 Anion Gap 17 BUN 16 Creatinine 0.8 Est GFR ( Amer) > 60 Est GFR (Non-Af Amer) > 60 POC Glucose (mg/dL) Random Glucose 161 H Calcium 9.5 Magnesium Total Bilirubin 1.1 AST 28 ALT 31 Alkaline Phosphatase 80 Total Protein 7.5 Albumin 4.0 Globulin 3.5 Albumin/Globulin Ratio 1.2 Triglycerides Cholesterol LDL Cholesterol Direct HDL Cholesterol TSH 3rd Generation FSH 3rd Generation Luteinizing Hormone Venous Blood Potassium Urine Color Urine Clarity Urine pH Ur Specific Keavy Urine Protein Urine Glucose (UA) Urine Ketones Urine Blood Urine Nitrate Urine Bilirubin Urine Urobilinogen Ur Leukocyte Esterase Urine RBC (Auto) Urine Microscopic WBC Ur Squamous Epith Cells 04/22/17 04/22/17 04/22/17 14:00 14:15 17:55 WBC RBC Hgb Hct MCV MCH MCHC RDW Plt Count MPV Neut % (Auto) Lymph % (Auto) Cannon % (Auto) Eos % (Auto) Baso % (Auto) Neut # (Auto) Lymph # (Auto) Cannon # (Auto) Eos # (Auto) Baso # (Auto) Neutrophils % (Manual) Lymphocytes % (Manual) Monocytes % (Manual) Platelet Estimate Macrocytosis (manual) ESR PT INR APTT pO2 13 L VBG pH 7.37 VBG pCO2 52 VBG HCO3 25.5 VBG Total CO2 31.7 H VBG O2 Sat (Calc) 20.1 L VBG Base Excess 3.6 H VBG Potassium 3.3 L Glucose 161 H Lactate 1.6 FiO2 21.0 Sodium 134.0 Potassium Chloride 99.0 Carbon Dioxide Anion Gap BUN Creatinine Est GFR ( Amer) Est GFR (Non-Af Amer) POC Glucose (mg/dL) Random Glucose Calcium Magnesium 1.8 Total Bilirubin AST ALT Alkaline Phosphatase Total Protein Albumin Globulin Albumin/Globulin Ratio Triglycerides Cholesterol LDL Cholesterol Direct HDL Cholesterol TSH 3rd Generation FSH 3rd Generation Luteinizing Hormone Venous Blood Potassium 3.3 L Urine Color Yellow Urine Clarity Slighty-cloudy Urine pH 6.0 Ur Specific Keavy 1.025 Urine Protein 30 Urine Glucose (UA) 150 Urine Ketones 20 Urine Blood Small Urine Nitrate Negative Urine Bilirubin Negative Urine Urobilinogen 0.2-1.0 Ur Leukocyte Esterase Neg Urine RBC (Auto) 8 H Urine Microscopic WBC 2 Ur Squamous Epith Cells 1 04/22/17 04/23/17 04/23/17 21:20 02:57 05:55 WBC 10.8 RBC 4.09 L Hgb 14.2 Hct 41.6 MCV 101.6 H MCH 34.7 H MCHC 34.1 RDW 13.0 Plt Count 175 MPV 9.0 Neut % (Auto) 77.2 H Lymph % (Auto) 7.8 L Cannon % (Auto) 12.9 H Eos % (Auto) 1.7 Baso % (Auto) 0.4 Neut # (Auto) 8.4 H Lymph # (Auto) 0.8 L Cannon # (Auto) 1.4 H Eos # (Auto) 0.2 Baso # (Auto) 0.0 Neutrophils % (Manual) Lymphocytes % (Manual) Monocytes % (Manual) Platelet Estimate Macrocytosis (manual) ESR PT INR APTT pO2 VBG pH VBG pCO2 VBG HCO3 VBG Total CO2 VBG O2 Sat (Calc) VBG Base Excess VBG Potassium Glucose Lactate FiO2 Sodium Potassium Chloride Carbon Dioxide Anion Gap BUN Creatinine Est GFR ( Amer) Est GFR (Non-Af Amer) POC Glucose (mg/dL) 225 H 177 H Random Glucose Calcium Magnesium Total Bilirubin AST ALT Alkaline Phosphatase Total Protein Albumin Globulin Albumin/Globulin Ratio Triglycerides Cholesterol LDL Cholesterol Direct HDL Cholesterol TSH 3rd Generation FSH 3rd Generation Luteinizing Hormone Venous Blood Potassium Urine Color Urine Clarity Urine pH Ur Specific Keavy Urine Protein Urine Glucose (UA) Urine Ketones Urine Blood Urine Nitrate Urine Bilirubin Urine Urobilinogen Ur Leukocyte Esterase Urine RBC (Auto) Urine Microscopic WBC Ur Squamous Epith Cells 04/23/17 04/23/17 04/23/17 05:55 06:00 10:35 WBC RBC Hgb Hct MCV MCH MCHC RDW Plt Count MPV Neut % (Auto) Lymph % (Auto) Cannon % (Auto) Eos % (Auto) Baso % (Auto) Neut # (Auto) Lymph # (Auto) Cannon # (Auto) Eos # (Auto) Baso # (Auto) Neutrophils % (Manual) Lymphocytes % (Manual) Monocytes % (Manual) Platelet Estimate Macrocytosis (manual) ESR PT INR APTT pO2 VBG pH VBG pCO2 VBG HCO3 VBG Total CO2 VBG O2 Sat (Calc) VBG Base Excess VBG Potassium Glucose Lactate FiO2 Sodium 137 Potassium 3.6 Chloride 99 Carbon Dioxide 27 Anion Gap 15 BUN 12 Creatinine 0.8 Est GFR ( Amer) > 60 Est GFR (Non-Af Amer) > 60 POC Glucose (mg/dL) 173 H 183 H Random Glucose 187 H Calcium 8.9 Magnesium Total Bilirubin AST ALT Alkaline Phosphatase Total Protein Albumin Globulin Albumin/Globulin Ratio Triglycerides 66 Cholesterol 160 LDL Cholesterol Direct 116 HDL Cholesterol 24 L TSH 3rd Generation 1.05 FSH 3rd Generation < 0.7 Luteinizing Hormone < 0.2 Venous Blood Potassium Urine Color Urine Clarity Urine pH Ur Specific Keavy Urine Protein Urine Glucose (UA) Urine Ketones Urine Blood Urine Nitrate Urine Bilirubin Urine Urobilinogen Ur Leukocyte Esterase Urine RBC (Auto) Urine Microscopic WBC Ur Squamous Epith Cells Assessment & Plan (1) Osteomyelitis Status: Acute (2) PVD (peripheral vascular disease) Status: Acute (3) Cellulitis in diabetic foot Status: Acute - Assessment and Plan (Free Text) Assessment: 67 year old male with 1) right foot plantar ulceration secondary to trauma 2) 5th digit ischemia vs. gangrene Right foot XR ordered: Lucency at the base of proximal phalanx 5th digit and also at the head of the 5th metatarsal is suspicious for OM Right foot plantar ulcer WCx obtained Plan: may need 5th ray resection cultures pending vascular eval in progress
--- NOTE | 2017-04-23 15:39 | MRI ---
PROCEDURE: MRI RIGHT FOOT WITH AND WITHOUT CONTRAST HISTORY: 5th digit ischemia, r/o OM, plantar ulcer COMPARISON: Right foot radiographs 04/22/2017. TECHNIQUE: Multiplanar multisequential MR imaging of the right foot was performed excluding the posterior-most port of portion of the hindfoot, including preliminary fat-suppressed and post gadolinium-enhanced T1 weighted fat-suppressed imaging (Omniscan 22 cc). FINDINGS: Edema is appreciated not only at the proximal phalanx of the great toe but also at the distal segment of the 1st metatarsal bone with the joint space degraded grossly at the 1st metatarsophalangeal joint. Further, 7- pattern is appreciated here. Following intravenous gadolinium administration, enhancement is appreciated in the same locations in a pattern compatible with osteomyelitis. An abscess at the 1st metatarsophalangeal joint space is in question as well. Diffuse cellulitis is seen throughout the forefoot, particularly medially. Subtle signal changes seen at the distal 5th metatarsal head as well as the base of the proximal phalanx 5th digit with local soft tissue changes appearing prominent. Enhancement is not obvious here within the marrow and osteomyelitis is not proven but is difficult to completely exclude. Heterogeneous failure fat suppression limits evaluation the digits somewhat. Deformities of the distal 3rd metatarsal and somewhat at the 2nd metatarsal bone again evident well as the base of the proximal phalanx 2nd digit either postoperative or postinflammatory from prior infectious or inflammatory event. No flexor or extensor tendon tear. First MTP lateral collateral ligament tear not excluded. The peroneal and tibialis anterior tendons appear intact as well as tibialis posterior tendon. Mild edema is seen involving the intrinsic muscles of the foot as well as limited atrophy. Thickening of the posterior segment of palate plantar fascia may indicate plantar fasciitis. Trace edema seen the sub talar joint. IMPRESSION: Findings positive for osteomyelitis at the proximal phalanx great toe and at the distal segment of the 1st metatarsal bone with phlegmon or abscess at the 1st metatarsophalangeal joint likely. Early osteomyelitis is not completely excluded at the distal segment 5th metatarsal bone and base proximal phalanx small digit. Chronic deformities of the 2nd and 3rd metatarsal bones is reiterated as well as the 2nd digit. A tear of the lateral collateral ligament at the 1st metatarsal phalangeal joint is not excluded. Diffuse cellulitis throughout the forefoot evident. Plantar fasciitis. Concordant preliminary report from [facility], 04/22/2017
[2017-04-23 16:49] LABS: PROLACTIN 13.5 ng/mL (3.7-17.9)
--- NOTE | 2017-04-23 17:55 | CARD ---
APPROVED REPORT EXAM: Two-dimensional and M-mode echocardiogram with Doppler and color Doppler. Other Information Quality : AverageRhythm : NSR INDICATION Pre-Op 2D DIMENSIONS IVSd1.21 (0.7-1.1cm)LVDd6.00 (3.9-5.9cm) LVOT Diameter2.42 (1.8-2.4cm)PWd0.93 (0.7-1.1cm) IVSs1.33 (0.8-1.2cm)LVDs3.67 (2.5-4.0cm) FS (%) 38.9 %PWs1.82 (0.8-1.2cm) M-Mode DIMENSIONS Left Atrium (MM)4.00 (2.5-4.0cm)IVSd1.18 (0.7-1.1cm) Aortic Root3.74 (2.2-3.7cm)LVDd5.68 (4.0-5.6cm) Aortic Cusp Exc.2.44 (1.5-2.0cm)PWd1.41 (0.7-1.1cm) IVSs1.47 cmFS (%) 24 % LVDs4.29 (2.0-3.8cm)PWs1.62 cm Mitral Valve MV E Jiifmjyw43.0cm/sMV DECEL [id number] A Dezrlsqk17.2cm/s MV MIN67uaB/A ratio1.2MVA (PHT)3.74cm2 TDI Lateral E' Peak V9.29cm/sMedial E' Peak V8.31cm/sE/Lateral E'7.6 E/Medial E'8.5 Pulmonary Valve PV Peak Alcxvrga62.7cm/s Tricuspid Valve TR Peak [id number]/sRAP [id number] Peak Gr.6mmHg [id number] LEFT VENTRICLE The left ventricle is normal size. There is normal left ventricular wall thickness. The left ventricular function is normal. The left ventricular ejection fraction is 55% There is normal LV segmental wall motion. The left ventricular diastolic function is normal. No left ventricle thrombus noted on this study. There is no ventricular septal defect visualized. There is no left ventricular aneurysm. There is no mass noted in the left ventricle. RIGHT VENTRICLE The right ventricle is normal size. There is normal right ventricular wall thickness. The right ventricular systolic function is normal. ATRIA The left atrium size is normal. The right atrium size is normal. The interatrial septum is intact with no evidence for an atrial septal defect. AORTIC VALVE The aortic valve is normal in structure. No aortic regurgitation is present. There is no aortic valvular stenosis. There is no aortic valvular vegetation. MITRAL VALVE The mitral valve is normal in structure. There is no evidence of mitral valve prolapse. There is no mitral valve stenosis. There is no mitral valve regurgitation noted. TRICUSPID VALVE The tricuspid valve is normal in structure. There is no tricuspid valve regurgitation noted. There is no tricuspid valve prolapse or vegetation. There is no tricuspid valve stenosis. PULMONIC VALVE The pulmonary valve is normal in structure. There is no pulmonic valvular regurgitation. There is no pulmonic valvular stenosis. GREAT VESSELS The aortic root is normal in size. The ascending aorta is normal in size. The IVC is normal in size and collapses >50% with inspiration. PERICARDIAL EFFUSION The pericardium appears normal. There is no pleural effusion. <Conclusion> Normal Echocardiogram
--- NOTE | 2017-04-23 18:08 | CARD ---
APPROVED REPORT EKG Measurement Heart [id number] <Conclusion> Normal sinus rhythm Normal ECG
--- NOTE | 2017-04-23 18:56 | CP.PCM.PN ---
Subjective - Date & Time of Evaluation Date of Evaluation: 04/23/17 Time of Evaluation: 18:15 - Subjective Subjective: Right foot dressing done by podiatry. Denies pain, weakness, fever or chills Offers no complains Objective - Vital Signs/Intake and Output Vital Signs (last 24 hours): Temp Pulse Resp BP Pulse Ox 98.6 F 75 18 121/70 95 04/23/17 16:18 04/23/17 16:18 04/23/17 16:18 04/23/17 16:18 04/23/17 16:18 - Medications Medications: Current Medications Enoxaparin Sodium (Lovenox) 40 mg SC DAILY [facility] PRN Reason: Protocol Last Admin: 04/23/17 09:50 Dose: 40 mg Home Med (Dulaglutide [Trulicity]) 1.5 mg SC QWK [facility] Piperacillin Sod/Tazobactam (Sod 3.375 gm/ Sodium Chloride) 100 mls @ 100 mls/ hr IVPB Q8 [facility] PRN Reason: Protocol Last Admin: 04/23/17 17:08 Dose: 100 mls/hr Vancomycin HCl 1 gm/ Sodium (Chloride) 250 mls @ 250 mls/hr IVPB Q12@0200,1400 [facility] PRN Reason: Protocol Last Admin: 04/23/17 13:11 Dose: 250 mls/hr Insulin Detemir (Levemir) 60 units SC HS [facility] Last Admin: 04/22/17 21:40 Dose: 60 units Insulin Human Lispro (Humalog) 0 units SC ACHS [facility] PRN Reason: Protocol Last Admin: 04/23/17 17:08 Dose: Not Given Insulin Human Lispro (Humalog) 12 units SC AC [facility] Last Admin: 04/23/17 17:08 Dose: 12 units Ramipril (Altace) 10 mg PO DAILY [facility] Last Admin: 04/23/17 09:50 Dose: 10 mg - Labs Labs: 04/23/17 05:55 04/23/17 05:55 PT 12.4 Seconds (9.8-13.1) 04/22/17 13:45 INR 1.1 (0.9-1.2) 04/22/17 13:45 APTT 27.4 Seconds (25.6-37.1) 04/22/17 13:45 - Constitutional Appears: Well, No Acute Distress - Head Exam Head Exam: ATRAUMATIC, NORMOCEPHALIC - Respiratory Exam Respiratory Exam: Clear to Ausculation Bilateral, NORMAL BREATHING PATTERN - Cardiovascular Exam Cardiovascular Exam: REGULAR RHYTHM, +S1, +S2 - GI/Abdominal Exam GI & Abdominal Exam: Soft, Normal Bowel Sounds - Extremities Exam Additional comments: Right foot wound with kerlix dressing, serous drainage - Neurological Exam Neurological Exam: Alert, Normal Gait - Psychiatric Exam Psychiatric exam: Normal Affect, Normal Mood - Skin Skin Exam: Normal Color, Warm Assessment and Plan (1) Cellulitis in diabetic foot Status: Acute (2) Osteomyelitis Status: Acute (3) PVD (peripheral vascular disease) Status: Acute (4) Insulin dependent diabetes mellitus Status: Chronic - Assessment and Plan (Free Text) Assessment: MRI report noted - positive osteomyelitis findings Antibiotics, vanco/zosyn tight glycemic control endocrinology consult ID consult podiatry follow up vascular eval PT DVT prophylaxis
--- NOTE | 2017-04-23 20:08 | PN ---
DATE: ENDO FOLLOWUP NOTE LOCATION: In room 662. This is a 67-year-old male with recent uncontrolled type 2 insulin-requiring diabetes,now admitted with right foot cellulitis and a concomitant neuropathic plantar ulceration and is now being followed closely for metabolic management. His glycemic levels are fluctuating,but improved and the latest glucose levels have ranged from 173-183 mg/dL. It was 225 at bedtime last night. His latest chemistry showed a BUN of 12, sodium 137, potassium 3.6, chloride 99, CO2 of 27, glucose 187 and creatinine 0.8. His TSH is 1.05 and the lipid panel was normal with a cholesterol of 160 and an HDL 24 and LDL of 116 as noted. ASSESSMENT: This is a 67-year-old male with uncontrolled and decompensated type 2 insulin-requiring diabetes presenting here with right foot cellulitis and concomitant neuropathic diabetic ulceration with also ischemic and gangrenous right fifth toe as noted. 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 Plan of management as discussed with the patient and staff. We will continue the modified basal and bolus insulin regimen as ordered with Humalog given as 12 units subcu t.i.d. before meals to start today as ordered. We will also add Levemir given as 60 units subcu at bedtime daily to start tonight. We will modify the coverage scale to obviate hypoglycemia and detailed orders have been given for a very low-dose correction scale using Humalog insulin as ordered. We will obtain serial chemistries and supplement accordingly as needed. We will follow. Nanette Blake MD
[2017-04-23] MEDS: Insulin Detemir 100 Units/ml Inj SC SCH (21:29)
[2017-04-24] MEDS: Piperacillin/Tazobact 3.375 GM in Sodium Chloride 0.9% 100 ML IVPB SCH ×3 (00:40→16:28)
[2017-04-24] MEDS: Insulin Lispro (humaLOG) 100 Units/ml Inj SC SCH ×7 (06:54→22:33)
[2017-04-24 07:18] LABS: BASO % 0.6 % (0.0-2.0); EOS # 0.2 K/uL (0.0-0.7); EOS % 2.2 % (0.0-4.0); HEMOGLOBIN 13.6 g/dL (12.0-18.0); LYMPH # 1.1 K/uL (1.0-4.3); MEAN CELL VOLUME 100.6 fl (80.0-94.0); MEAN CORPUSCULAR HEMOGLOBIN 34.8 pg (27.0-31.0); MEAN CORPUSCULAR HGB CONC 34.6 g/dL (33.0-37.0); MONO # 1.2 K/uL (0.0-0.8); MONO % 13.8 % (0.0-10.0); NEUT # 6.4 K/uL (1.8-7.0); NEUT % 71.4 % (50.0-75.0); RBC 3.92 Mil/uL (4.40-5.90); RED CELL DISTRIBUTION WIDTH 13.1 % (11.5-14.5)
[2017-04-24] MEDS: Enoxaparin 40 mg Syringe SC SCH (09:09)
--- NOTE | 2017-04-24 11:49 | PN ---
DATE: ENDO FOLLOWUP NOTE LOCATION: Room 662. SUBJECTIVE: This is a 67-year-old male with recent uncontrolled type 2 insulin-requiring diabetes now being followed closely for metabolic management. He presented here with right foot cellulitis and associated trauma into the plantar with severe underlying diabetic polyneuropathy as noted. Moreover, he also has a gangrenous right fifth toe digit also as noted. He had a previous toe amputation in the right first and second toes in the past also related to underlying peripheral arterial vasculopathy. His glycemic levels are fluctuating and ranging from 222 to 248 and 310 mg/dL. His hemoglobin A1c is 8.0%. The latest chemistry showed BUN of 12, sodium of 137, potassium of 3.6, chloride of 99, CO2 of 27, glucose of 187, and creatinine of 0.8. So at this time, we will modify once again his bolus mealtime insulin and increase the Humalog to units subcu t.i.d. before meals to start today as ordered. We will also continue the basal insulin given as Levemir at 60 units subcu at bedtime daily to start tonight. We will continue the low-dose correction scale using Humalog insulin as given. We will follow and advice accordingly. Nanette Blake MD
--- NOTE | 2017-04-24 12:05 | CP.PCM.DIS ---
Provider - Provider Date of Admission: 04/22/17 13:21 Attending physician: Natan Carbajal MD Time Spent in preparation of Discharge (in minutes): 25 Diagnosis - Discharge Diagnosis (1) Cellulitis in diabetic foot Status: Acute Priority: High (2) Osteomyelitis Status: Acute Priority: High (3) Diabetes mellitus with hyperglycemia Status: Acute Hospital Course - Lab Results Lab Results: Micro Results 04/22/17 14:25 Foot - Left Gram Stain - Final 04/22/17 14:25 Foot - Left Wound Culture - Final Staphylococcus Aureus 04/22/17 13:30 Blood Blood Culture - Preliminary NO GROWTH AFTER 24 HOURS 04/22/17 13:45 Blood Blood Culture - Preliminary NO GROWTH AFTER 24 HOURS Most Recent Lab Values WBC 9.0 K/uL (4.8-10.8) 04/24/17 05:30 RBC 3.92 Mil/uL (4.40-5.90) L 04/24/17 05:30 Hgb 13.6 g/dL (12.0-18.0) 04/24/17 05:30 Hct 39.4 % (35.0-51.0) 04/24/17 05:30 MCV 100.6 fl (80.0-94.0) H 04/24/17 05:30 MCH 34.8 pg (27.0-31.0) H 04/24/17 05:30 MCHC 34.6 g/dL (33.0-37.0) 04/24/17 05:30 RDW 13.1 % (11.5-14.5) 04/24/17 05:30 Plt Count 169 K/uL (130-400) 04/24/17 05:30 MPV 9.0 fl (7.2-11.7) 04/24/17 05:30 Neut % (Auto) 71.4 % (50.0-75.0) 04/24/17 05:30 Lymph % (Auto) 12.0 % (20.0-40.0) L 04/24/17 05:30 Pike % (Auto) 13.8 % (0.0-10.0) H 04/24/17 05:30 Eos % (Auto) 2.2 % (0.0-4.0) 04/24/17 05:30 Baso % (Auto) 0.6 % (0.0-2.0) 04/24/17 05:30 Neut # (Auto) 6.4 K/uL (1.8-7.0) 04/24/17 05:30 Lymph # (Auto) 1.1 K/uL (1.0-4.3) 04/24/17 05:30 Pike # (Auto) 1.2 K/uL (0.0-0.8) H 04/24/17 05:30 Eos # (Auto) 0.2 K/uL (0.0-0.7) 04/24/17 05:30 Baso # (Auto) 0.0 K/uL (0.0-0.2) 04/24/17 05:30 Neutrophils % (Manual) 86 % (42-75) H 04/22/17 13:45 Lymphocytes % (Manual) 4 % (20-50) L 04/22/17 13:45 Monocytes % (Manual) 10 % (0-10) 04/22/17 13:45 Platelet Estimate Normal (NORMAL) 04/22/17 13:45 Macrocytosis (manual) Slight 04/22/17 13:45 ESR 87 mm/hr (0-20) H 04/22/17 13:45 PT 12.4 Seconds (9.8-13.1) 04/22/17 13:45 INR 1.1 (0.9-1.2) 04/22/17 13:45 APTT 27.4 Seconds (25.6-37.1) 04/22/17 13:45 pO2 13 mm/Hg (30-55) L 04/22/17 14:00 VBG pH 7.37 (7.32-7.43) 04/22/17 14:00 VBG pCO2 52 mmHg (40-60) 04/22/17 14:00 VBG HCO3 25.5 mmol/L 04/22/17 14:00 VBG Total CO2 31.7 mmol/L (22-28) H 04/22/17 14:00 VBG O2 Sat (Calc) 20.1 % (40-65) L 04/22/17 14:00 VBG Base Excess 3.6 mmol/L (0.0-2.0) H 04/22/17 14:00 VBG Potassium 3.3 mmol/L (3.6-5.2) L 04/22/17 14:00 Sodium 134.0 mmol/L (132-148) 04/22/17 14:00 Chloride 99.0 mmol/L (98-107) 04/22/17 14:00 Glucose 161 mg/dL (75-110) H 04/22/17 14:00 Lactate 1.6 mmol/L (0.7-2.1) 04/22/17 14:00 FiO2 21.0 % 04/22/17 14:00 Sodium 137 mmol/l (132-148) 04/23/17 05:55 Potassium 3.6 MMOL/L (3.6-5.0) 04/23/17 05:55 Chloride 99 mmol/L (98-107) 04/23/17 05:55 Carbon Dioxide 27 mmol/L (22-30) 04/23/17 05:55 Anion Gap 15 (10-20) 04/23/17 05:55 BUN 12 mg/dl (9-20) 04/23/17 05:55 Creatinine 0.8 mg/dl (0.8-1.5) 04/23/17 05:55 Est GFR ( Amer) > 60 04/23/17 05:55 Est GFR (Non-Af Amer) > 60 04/23/17 05:55 POC Glucose (mg/dL) 186 mg/dL (65-110) H 04/24/17 10:48 Random Glucose 187 mg/dL (75-110) H 04/23/17 05:55 Hemoglobin A1c 8.0 % (4.2-6.5) H 04/23/17 05:55 Calcium 8.9 mg/dL (8.4-10.2) 04/23/17 05:55 Magnesium 1.8 MG/DL (1.6-2.3) 04/22/17 17:55 Total Bilirubin 1.1 mg/dl (0.2-1.3) 04/22/17 13:45 AST 28 U/L (17-59) 04/22/17 13:45 ALT 31 U/L (21-72) 04/22/17 13:45 Alkaline Phosphatase 80 U/L (38-126) 04/22/17 13:45 Total Protein 7.5 G/DL (6.3-8.2) 04/22/17 13:45 Albumin 4.0 g/dL (3.5-5.0) 04/22/17 13:45 Globulin 3.5 gm/dL (2.2-3.9) 04/22/17 13:45 Albumin/Globulin Ratio 1.2 (1.0-2.1) 04/22/17 13:45 Triglycerides 66 mg/DL (0-149) 04/23/17 05:55 Cholesterol 160 mg/dL (0-199) 04/23/17 05:55 LDL Cholesterol Direct 116 mg/dL (0-129) 04/23/17 05:55 HDL Cholesterol 24 MG/DL (30-70) L 04/23/17 05:55 TSH 3rd Generation 1.05 mIU/ML (0.46-4.68) 04/23/17 05:55 FSH 3rd Generation < 0.7 mIU/mL 04/23/17 05:55 Luteinizing Hormone < 0.2 mIU/ml 04/23/17 05:55 Prolactin 13.5 ng/mL (3.7-17.9) 04/23/17 05:55 Venous Blood Potassium 3.3 mmol/L (3.6-5.2) L 04/22/17 14:00 Urine Color Yellow (YELLOW) 04/22/17 14:15 Urine Clarity Slighty-cloudy (Clear) 04/22/17 14:15 Urine pH 6.0 (5.0-8.0) 04/22/17 14:15 Ur Specific Cu[place]o 1.025 (1.003-1.030) 04/22/17 14:15 Urine Protein 30 mg/dL (NEGATIVE) 04/22/17 14:15 Urine Glucose (UA) 150 mg/dL (Normal) 04/22/17 14:15 Urine Ketones 20 mg/dL (NEGATIVE) 04/22/17 14:15 Urine Blood Small (NEGATIVE) 04/22/17 14:15 Urine Nitrate Negative (NEGATIVE) 04/22/17 14:15 Urine Bilirubin Negative (NEGATIVE) 04/22/17 14:15 Urine Urobilinogen 0.2-1.0 mg/dL (0.2-1.0) 04/22/17 14:15 Ur Leukocyte Esterase Neg Sugar/uL (Negative) 04/22/17 14:15 Urine RBC (Auto) 8 /hpf (0-3) H 04/22/17 14:15 Urine Microscopic WBC 2 /hpf (0-5) 04/22/17 14:15 Ur Squamous Epith Cells 1 /hpf (0-5) 04/22/17 14:15 Vancomycin Trough 6.7 ug/mL (5.0-10.0) 04/24/17 00:28 Discharge Exam - Head Exam Head Exam: ATRAUMATIC, NORMOCEPHALIC Discharge Plan - Follow Up Plan Condition: STABLE Disposition: HOME/ ROUTINE
--- NOTE | 2017-04-24 19:13 | CP.PCM.PN ---
Subjective - Date & Time of Evaluation Date of Evaluation: 04/24/17 Time of Evaluation: 13:00 - Subjective Subjective: Podiatry Progress Note - Dr. Olmedo 67 year old male patient seen and evaluated at bedside for right foot infection and 5th digit ischemia. Patient hemodynamically stable and NAD. present at bedside. No acute events overnight. No pain to right foot. Patient has been PWB to right heel only with the assistance of a cane. Offers no complaints today. Denies N/V/F/D/C/SOB/calf pain. Objective - Vital Signs/Intake and Output Vital Signs (last 24 hours): Temp Pulse Resp BP Pulse Ox 98.4 F 69 18 134/78 96 04/24/17 15:58 04/24/17 15:58 04/24/17 15:58 04/24/17 15:58 04/24/17 15:58 - Medications Medications: Current Medications Enoxaparin Sodium (Lovenox) 40 mg SC DAILY [facility] [place] PRN Reason: Protocol Last Admin: 04/24/17 09:09 Dose: 40 mg Piperacillin Sod/Tazobactam (Sod 3.375 gm/ Sodium Chloride) 100 mls @ 100 mls/ hr IVPB Q8 [facility] [place] PRN Reason: Protocol Last Admin: 04/24/17 16:28 Dose: 100 mls/hr Vancomycin HCl 1 gm/ Sodium (Chloride) 250 mls @ 250 mls/hr IVPB Q12@0200,1400 [facility] PRN Reason: Protocol Last Admin: 04/24/17 13:00 Dose: 250 mls/hr Insulin Detemir (Levemir) 60 units SC HS [facility] Last Admin: 04/23/17 21:29 Dose: 60 units Insulin Human Lispro (Humalog) 0 units SC ACHS [facility] PRN Reason: Protocol Last Admin: 04/24/17 16:27 Dose: Not Given Insulin Human Lispro (Humalog) 14 units SC AC [facility] Last Admin: 04/24/17 16:28 Dose: 14 units Ramipril (Altace) 10 mg PO DAILY [facility] Last Admin: 04/24/17 09:09 Dose: 10 mg - Labs Labs: 04/24/17 05:30 04/23/17 05:55 PT 12.4 Seconds (9.8-13.1) 04/22/17 13:45 INR 1.1 (0.9-1.2) 04/22/17 13:45 APTT 27.4 Seconds (25.6-37.1) 04/22/17 13:45 - Constitutional Appears: Well, Non-toxic, No Acute Distress - Extremities Exam Additional comments: RLE focused physical exam VASC: DP and PT pulses palpable 2/4. CFT <3 seconds to digits 1-4, unable to be assessed 5th digit. Temperature gradient warm to warm, mild increase in warmth around plantar ulceration, 5th digit remains cool to touch. Nonpitting edema noted to right foot. NEURO: Gross sensation diminished. DERM: Ulceration noted to plantar aspect of 4th interspace measuring approximately 0.5 x 0.5 x 3cm - ulcer noted to have a 100% granular base and erythema periwound, erythema extending proximally into forefoot; serosanguinous drainage noted; (-)probe to bone; minimal purulence able to be expressed this visit; overlying skin erosion; no fluctuance. Dusky/ischemic discoloration noted to 5th digit with necrotic tissue to dorsal and medial aspects. Well- healed cicatrices on dorsum of 2nd metatarsal, 3rd IS, and sub met 2. ORTHO: Pain on palpation 4th digit, no pain on palpation 5th digit. Muscle strength 5/5 for all dorsiflexors, plantarflexors, inverters, and everters. - Neurological Exam Neurological Exam: Alert, Awake, Oriented x3 - Psychiatric Exam Psychiatric exam: Normal Affect, Normal Mood Assessment and Plan - Assessment and Plan (Free Text) Assessment: 67 year old male with 1) right foot plantar ulceration secondary to trauma 2) 5th digit ischemia vs. gangrene Plan: Patient seen and evaluated Discussed with attending, Dr. Olmedo Afebrile, WBC 9.0, ESR 87 Right foot XR (04/22/17): Lucency at the base of the proximal phalanx 5th digit and also at the head of the 5th metatarsal is suspicious for OM Right foot MRI (04/22/17): Osteomyelitis at the proximal phalanx great toe and at the distal segment of the 1st metatarsal bone with phlegmon or abscess at 1st MPJ likely. Early OM not completely excluded at distal segment 5th metatarsal bone and proximal phalanx of digit. Diffuse cellulitis throughout forefoot evident Bilateral arterial duplex (04/22/17) -No significant stenosis identified at the bilateral lower extremity major arteries although low velocity but triphasic waveform is identified at the left anterior tibial a. -Above the bilateral DP arteries appear widely patent as well as the posterior tibia arteries Right foot plantar ulcer WCx - staph aureus Continue IV abx - Vancomycin 1g IV, Zosyn 3.375g IV ID consult - Dr. Dhaliwal recs appreciated Cardio consult - Dr. Rankin, SAL[facility] to proceed with surgery Possible OR Wednesday for partial 5th ray resection PWB to right heel only in surgical shoe with the assistance of cane Continue PT Right foot cleansed with sterile saline and dressed with DSD Podiatry will continue to follow while in house
[2017-04-24] MEDS: Insulin Detemir 100 Units/ml Inj SC SCH (22:31)
--- NOTE | 2017-04-24 23:28 | CP.PCM.PN ---
Subjective - Date & Time of Evaluation Date of Evaluation: 04/24/17 Time of Evaluation: 15:20 - Subjective Subjective: Feels okay, has no complains. Has been ambulating with PWB to right heel. Denies cp, sob, fever or chills Objective - Vital Signs/Intake and Output Vital Signs (last 24 hours): Temp Pulse Resp BP Pulse Ox 98.4 F 69 18 134/78 96 04/24/17 15:58 04/24/17 15:58 04/24/17 15:58 04/24/17 15:58 04/24/17 15:58 - Medications Medications: Current Medications Enoxaparin Sodium (Lovenox) 40 mg SC DAILY [facility] PRN Reason: Protocol Last Admin: 04/24/17 09:09 Dose: 40 mg Piperacillin Sod/Tazobactam (Sod 3.375 gm/ Sodium Chloride) 100 mls @ 100 mls/ hr IVPB Q8 [facility] PRN Reason: Protocol Last Admin: 04/24/17 16:28 Dose: 100 mls/hr Vancomycin HCl 1 gm/ Sodium (Chloride) 250 mls @ 250 mls/hr IVPB Q12@0200,1400 [facility] PRN Reason: Protocol Last Admin: 04/24/17 13:00 Dose: 250 mls/hr Insulin Detemir (Levemir) 60 units SC HS [facility] Last Admin: 04/24/17 22:31 Dose: 60 units Insulin Human Lispro (Humalog) 0 units SC ACHS [facility] PRN Reason: Protocol Last Admin: 04/24/17 22:33 Dose: Not Given Insulin Human Lispro (Humalog) 14 units SC AC [facility] Last Admin: 04/24/17 16:28 Dose: 14 units Ramipril (Altace) 10 mg PO DAILY [facility] Last Admin: 04/24/17 09:09 Dose: 10 mg - Labs Labs: 04/24/17 05:30 04/23/17 05:55 PT 12.4 Seconds (9.8-13.1) 04/22/17 13:45 INR 1.1 (0.9-1.2) 04/22/17 13:45 APTT 27.4 Seconds (25.6-37.1) 04/22/17 13:45 - Constitutional Appears: Well, No Acute Distress - Head Exam Head Exam: ATRAUMATIC - Respiratory Exam Respiratory Exam: Clear to Ausculation Bilateral, NORMAL BREATHING PATTERN - Cardiovascular Exam Cardiovascular Exam: REGULAR RHYTHM, +S1, +S2 - Extremities Exam Additional comments: Dressing to right foot with serous drainage - Psychiatric Exam Psychiatric exam: Normal Affect, Normal Mood - Skin Skin Exam: Normal Color, Warm Assessment and Plan (1) Cellulitis in diabetic foot Status: Acute (2) Osteomyelitis Status: Acute (3) PVD (peripheral vascular disease) Status: Acute (4) Insulin dependent diabetes mellitus Status: Acute - Assessment and Plan (Free Text) Assessment: 67 year old male with cellulitis and OM of right foot Plan: Continue IV abx, vanco/zosyn tight glycemic control ID on board cardiology consult appreciated podiatry on board plan for surgery next week
[2017-04-25] MEDS: Piperacillin/Tazobact 3.375 GM in Sodium Chloride 0.9% 100 ML IVPB SCH ×3 (01:25→16:54)
[2017-04-25] MEDS: Insulin Lispro (humaLOG) 100 Units/ml Inj SC SCH ×7 (06:57→21:52)
[2017-04-25 06:58] LABS: BASO # 0.1 K/uL (0.0-0.2); BASO % 0.7 % (0.0-2.0); EOS # 0.1 K/uL (0.0-0.7); EOS % 1.2 % (0.0-4.0); HEMOGLOBIN 13.8 g/dL (12.0-18.0); LYMPH # 1.1 K/uL (1.0-4.3); LYMPH % 10.8 % (20.0-40.0); MEAN CELL VOLUME 101.7 fl (80.0-94.0); MEAN CORPUSCULAR HEMOGLOBIN 35.1 pg (27.0-31.0); MEAN CORPUSCULAR HGB CONC 34.5 g/dL (33.0-37.0); MEAN PLATELET VOLUME 8.9 fl (7.2-11.7); MONO # 1.4 K/uL (0.0-0.8); MONO % 14.4 % (0.0-10.0); NEUT # 7.2 K/uL (1.8-7.0); NEUT % 72.9 % (50.0-75.0); RBC 3.94 Mil/uL (4.40-5.90); RED CELL DISTRIBUTION WIDTH 13.2 % (11.5-14.5); WHITE BLOOD COUNT 9.9 K/uL (4.8-10.8)
[2017-04-25] MEDS: Enoxaparin 40 mg Syringe SC SCH (09:11)
--- NOTE | 2017-04-25 09:32 | CP.PCM.PN ---
Subjective - Date & Time of Evaluation Date of Evaluation: 04/25/17 Time of Evaluation: 09:32 - Subjective Subjective: Podiatry Progress Note - Dr. Olmedo 67 year old male patient seen and evaluated at bedside for right foot infection and 5th digit ischemia. Patient hemodynamically stable and NAD. Denies any pain to right foot. Patient has been PWB to right heel only with the assistance of a cane. Dressing saturated with drainage. Denies N/V/F/D/C/SOB/calf pain. Objective - Vital Signs/Intake and Output Vital Signs (last 24 hours): Temp Pulse Resp BP Pulse Ox 97.9 F 74 20 147/85 95 04/25/17 08:09 04/25/17 08:09 04/25/17 08:09 04/25/17 09:09 04/25/17 08:09 - Medications Medications: Current Medications Enoxaparin Sodium (Lovenox) 40 mg SC DAILY [facility] PRN Reason: Protocol Last Admin: 04/25/17 09:11 Dose: 40 mg Piperacillin Sod/Tazobactam (Sod 3.375 gm/ Sodium Chloride) 100 mls @ 100 mls/ hr IVPB Q8 [facility] PRN Reason: Protocol Last Admin: 04/25/17 09:10 Dose: 100 mls/hr Vancomycin HCl 1 gm/ Sodium (Chloride) 250 mls @ 250 mls/hr IVPB Q12@0200,1400 [facility] PRN Reason: Protocol Last Admin: 04/25/17 02:25 Dose: 250 mls/hr Insulin Detemir (Levemir) 60 units SC HS [facility] Last Admin: 04/24/17 22:31 Dose: 60 units Insulin Human Lispro (Humalog) 0 units SC ACHS [facility] PRN Reason: Protocol Last Admin: 04/25/17 06:57 Dose: Not Given Insulin Human Lispro (Humalog) 14 units SC AC [facility] Last Admin: 04/25/17 08:45 Dose: 14 units Ramipril (Altace) 10 mg PO DAILY [facility] Last Admin: 04/25/17 09:09 Dose: 10 mg - Labs Labs: 04/25/17 05:30 04/23/17 05:55 PT 12.4 Seconds (9.8-13.1) 04/22/17 13:45 INR 1.1 (0.9-1.2) 04/22/17 13:45 APTT 27.4 Seconds (25.6-37.1) 04/22/17 13:45 - Constitutional Appears: Well, Non-toxic, No Acute Distress - Extremities Exam Additional comments: RLE focused physical exam VASC: DP and PT pulses palpable 2/4. CFT <3 seconds to digits 1-4, unable to be assessed 5th digit. Temperature gradient warm to warm, mild increase in warmth around plantar ulceration, 5th digit remains cool to touch. Nonpitting edema noted to right foot. NEURO: Gross sensation diminished. DERM: Ulceration noted to plantar aspect of 4th interspace measuring approximately 0.5 x 0.5 x 3cm - ulcer noted to have a 100% granular base and erythema periwound, erythema extending proximally into forefoot which is decreased since previous visit; serosanguinous drainage able to be expressed from plantar ulcer; (-)probe to bone; no fluctuance. Dusky/ischemic discoloration noted to 5th digit with necrotic tissue to dorsal and medial aspects; overlying skin ; approximately 2cc of purulence able to be expressed from dorsolateral and medial 5th digit. Well-healed cicatrices on dorsum of 2nd metatarsal, 3rd IS, and sub met 2. ORTHO: Pain on palpation 4th digit, no pain on palpation 5th digit. Muscle strength 5/5 for all dorsiflexors, plantarflexors, inverters, and everters. - Neurological Exam Neurological Exam: Alert, Awake, Oriented x3 - Psychiatric Exam Psychiatric exam: Normal Affect, Normal Mood Assessment and Plan - Assessment and Plan (Free Text) Assessment: 67 year old male with 1) right foot plantar ulceration secondary to trauma 2) 5th digit ischemia vs. gangrene Plan: Patient seen and evaluated Discussed with attending, Dr. Olmedo Afebrile, WBC 9.9, ESR 87 Right foot XR (04/22/17): Lucency at the base of the proximal phalanx 5th digit and also at the head of the 5th metatarsal is suspicious for OM Right foot MRI (04/22/17): Osteomyelitis at the proximal phalanx great toe and at the distal segment of the 1st metatarsal bone with phlegmon or abscess at 1st MPJ likely. Early OM not completely excluded at distal segment 5th metatarsal bone and proximal phalanx of digit. Diffuse cellulitis throughout forefoot evident Bilateral arterial duplex (04/22/17) -No significant stenosis identified at the bilateral lower extremity major arteries although low velocity but triphasic waveform is identified at the left anterior tibial a. -Above the bilateral DP arteries appear widely patent as well as the posterior tibia arteries Right foot plantar ulcer WCx - staph aureus ID recs appreciated - d/c Vancomycin c/s +MSSA, continue Zosyn 3.375g IV Cardio consult - SALENA Bernard to proceed with surgery Plan for OR Wednesday for partial 5th ray resection, I&D of abscess, debridement 1st ray PWB to right heel only in surgical shoe with the assistance of cane Continue PT Right foot cleansed with sterile saline and dressed with betadine, DSD Podiatry will continue to follow while in house
--- NOTE | 2017-04-25 12:15 | CP.PCM.PN ---
Subjective - Date & Time of Evaluation Date of Evaluation: 04/25/17 Time of Evaluation: 09:00 - Subjective Subjective: feels well no fever alert oriented Objective - Vital Signs/Intake and Output Vital Signs (last 24 hours): Temp Pulse Resp BP Pulse Ox 97.9 F 74 20 147/85 95 04/25/17 08:09 04/25/17 08:09 04/25/17 08:09 04/25/17 09:09 04/25/17 08:09 - Medications Medications: Current Medications Acetaminophen (Tylenol 325mg Tab) 650 mg PO Q4 PRN PRN Reason: Pain, Mild (1-3) Enoxaparin Sodium (Lovenox) 40 mg SC DAILY [facility] PRN Reason: Protocol Last Admin: 04/25/17 09:11 Dose: 40 mg Piperacillin Sod/Tazobactam (Sod 3.375 gm/ Sodium Chloride) 100 mls @ 100 mls/ hr IVPB Q8 [facility] PRN Reason: Protocol Last Admin: 04/25/17 09:10 Dose: 100 mls/hr Vancomycin HCl 1 gm/ Sodium (Chloride) 250 mls @ 250 mls/hr IVPB Q12@0200,1400 [facility] PRN Reason: Protocol Last Admin: 04/25/17 02:25 Dose: 250 mls/hr Ibuprofen (Motrin Tab) 400 mg PO Q8 [facility]N PRN Reason: Headache Last Admin: 04/25/17 11:35 Dose: 400 mg Insulin Detemir (Levemir) 60 units SC HS [facility] Last Admin: 04/24/17 22:31 Dose: 60 units Insulin Human Lispro (Humalog) 0 units SC ACHS [facility] PRN Reason: Protocol Last Admin: 04/25/17 06:57 Dose: Not Given Insulin Human Lispro (Humalog) 14 units SC AC [facility] Last Admin: 04/25/17 08:45 Dose: 14 units Ramipril (Altace) 10 mg PO DAILY [facility] Last Admin: 04/25/17 09:09 Dose: 10 mg - Labs Labs: 04/25/17 05:30 04/23/17 05:55 PT 12.4 Seconds (9.8-13.1) 04/22/17 13:45 INR 1.1 (0.9-1.2) 04/22/17 13:45 APTT 27.4 Seconds (25.6-37.1) 04/22/17 13:45 - Constitutional Appears: Non-toxic, Chronically Ill - Head Exam Head Exam: NORMOCEPHALIC - Eye Exam Eye Exam: PERRL - ENT Exam ENT Exam: Mucous Membranes Dry - Neck Exam Neck Exam: absent: Lymphadenopathy - Respiratory Exam Respiratory Exam: Decreased Breath Sounds, Clear to Ausculation Bilateral - Cardiovascular Exam Cardiovascular Exam: REGULAR RHYTHM, +S1, +S2 - GI/Abdominal Exam GI & Abdominal Exam: Distended, Soft. absent: Tenderness - Rectal Exam Rectal Exam: Deferred - Exam Exam: NORMAL INSPECTION - Extremities Exam Extremities Exam: Pedal Edema, Tenderness - Back Exam Back Exam: absent: CVA tenderness (L), CVA tenderness (R) - Neurological Exam Neurological Exam: Alert, Awake, CN II-XII Intact, Normal Gait - Psychiatric Exam Psychiatric exam: Normal Mood - Skin Skin Exam: Dry Assessment and Plan (1) Osteomyelitis Status: Acute (2) PVD (peripheral vascular disease) Status: Acute (3) Cellulitis in diabetic foot Status: Acute - Assessment and Plan (Free Text) Assessment: + OM right foot c/s + MSSA cont Zosyn possible OR / debridement and amp
--- NOTE | 2017-04-25 14:04 | PN ---
DATE: ENDO FOLLOWUP NOTE LOCATION: Room 662. SUBJECTIVE: This is a 67-year-old male with recent uncontrolled type 2 insulin-requiring diabetes now being followed closely for metabolic management. His glycemic levels are fluctuating but much improved at this time and the latest glucose values have ranged from 184-222 to 239 mg/dL. His latest chemistries showed BUN of 12, sodium of 137, potassium of 3.6, chloride of 99, CO2 of 27, glucose of 187, and creatinine of 0.8. His hemoglobin A1c is 8% as noted. So at this time, we will continue the same basal and bolus insulin drug combination to allow for dose equilibration and keep him on the Humalog given as units subcu t.i.d. before meals as ordered. We will continue the Levemir given as 60 units subcu at bedtime daily to start tonight as given. He will continue also the low-dose correction scale using Humalog insulin as ordered. We will follow and advice accordingly. Nanette Blake MD
[2017-04-25] MEDS: Insulin Detemir 100 Units/ml Inj SC SCH (21:53)
--- NOTE | 2017-04-25 22:06 | CP.PCM.PN ---
Subjective - Date & Time of Evaluation Date of Evaluation: 04/25/17 Time of Evaluation: 20:35 - Subjective Subjective: Seen and examined at the bed side. Wound care daily appreciated. agreed to have amputation. Feels well, offers no complains. Denies cp, sob, f/c/n/v Objective - Vital Signs/Intake and Output Vital Signs (last 24 hours): Temp Pulse Resp BP Pulse Ox 97.7 F 70 18 143/82 96 04/25/17 15:58 04/25/17 15:58 04/25/17 15:58 04/25/17 15:58 04/25/17 15:58 - Medications Medications: Current Medications Acetaminophen (Tylenol 325mg Tab) 650 mg PO Q4 PRN PRN Reason: Pain, Mild (1-3) Enoxaparin Sodium (Lovenox) 40 mg SC DAILY [facility] PRN Reason: Protocol Last Admin: 04/25/17 09:11 Dose: 40 mg Piperacillin Sod/Tazobactam (Sod 3.375 gm/ Sodium Chloride) 100 mls @ 100 mls/ hr IVPB Q8 [facility] PRN Reason: Protocol Last Admin: 04/25/17 16:54 Dose: 100 mls/hr Ibuprofen (Motrin Tab) 400 mg PO Q8 PRN PRN Reason: Headache Last Admin: 04/25/17 20:16 Dose: 400 mg Insulin Detemir (Levemir) 60 units SC HS [facility] Last Admin: 04/25/17 21:53 Dose: 60 units Insulin Human Lispro (Humalog) 0 units SC ACHS [facility] PRN Reason: Protocol Last Admin: 04/25/17 21:52 Dose: Not Given Insulin Human Lispro (Humalog) 14 units SC AC [facility] Last Admin: 04/25/17 16:44 Dose: 14 units Ramipril (Altace) 10 mg PO DAILY [facility] Last Admin: 04/25/17 09:09 Dose: 10 mg - Labs Labs: 04/25/17 05:30 04/23/17 05:55 PT 12.4 Seconds (9.8-13.1) 04/22/17 13:45 INR 1.1 (0.9-1.2) 04/22/17 13:45 APTT 27.4 Seconds (25.6-37.1) 04/22/17 13:45 - Constitutional Appears: Well, No Acute Distress - Head Exam Head Exam: ATRAUMATIC - Respiratory Exam Respiratory Exam: Clear to Ausculation Bilateral, NORMAL BREATHING PATTERN - Cardiovascular Exam Cardiovascular Exam: REGULAR RHYTHM, +S1, +S2 - GI/Abdominal Exam GI & Abdominal Exam: Soft, Normal Bowel Sounds - Neurological Exam Neurological Exam: Alert, Oriented x3 - Psychiatric Exam Psychiatric exam: Normal Affect, Normal Mood - Skin Skin Exam: Normal Color, Warm Assessment and Plan (1) Cellulitis in diabetic foot Status: Acute (2) Osteomyelitis Status: Acute (3) PVD (peripheral vascular disease) Status: Acute (4) Insulin dependent diabetes mellitus Status: Acute - Assessment and Plan (Free Text) Assessment: 67 year old male with cellulitis and osteomyelitis of right foot Plan: Continue IV antibiotics continue same meds consults appreciated possible OR on Wednesday for amputation 5th digit
--- NOTE | 2017-04-25 23:23 | CP.PCM.CON ---
History of Present Illness - History of Present Illness History of Present Illness: consultation for vascular evaluation HPI 67 year old male with hx of DM, HTN admitted with worsening infection of his 5th digit after sustaining traumatic injury. He had sustained an injury to his foot while stepping on tool which got progressively worse with erythema and subsequently became discolored and ischemic in nature. I was evaluated called for evaluation of vascular status. At baseline he is very active denies having any ischemic symptoms. Arterial duplex was reviewed which was done on this admission which was triphasic flow with minimal evidence of microvascular disease. Review of Systems - Review of Systems Systems not reviewed;Unavailable: Acuity of Condition - Constitutional Constitutional: As Per HPI - EENT Eyes: As Per HPI Past Patient History - Past Medical History & Family History Past Medical History?: Yes - Past Social History Smoking Status: Never Smoked - NEUROLOGICAL Hx Neurological Disorder: Yes Other/Comment: DIABETIC NEUROPATHY - ENDOCRINE/METABOLIC Hx Endocrine Disorders: Yes Hx Diabetes Mellitus Type 1: Yes - MUSCULOSKELETAL/RHEUMATOLOGICAL Hx Falls: No - PSYCHIATRIC Hx Substance Use: No - SURGICAL HISTORY Hx Surgeries: Yes Hx Musculoskeletal Surgery: Yes (RT FOOT SURGERY) - ANESTHESIA Hx Anesthesia: Yes Hx Anesthesia Reactions: No Meds Allergies/Adverse Reactions: Allergies Allergy/AdvReac Type Severity Reaction Status Date / Time No Known Allergies Allergy Verified 04/22/17 12:12 - Medications Medications: Current Medications Enoxaparin Sodium (Lovenox) 40 mg SC DAILY [facility] PRN Reason: Protocol Last Admin: 04/23/17 09:50 Dose: 40 mg Home Med (Dulaglutide [Trulicity]) 1.5 mg SC QWK [facility] Piperacillin Sod/Tazobactam (Sod 3.375 gm/ Sodium Chloride) 100 mls @ 100 mls/ hr IVPB Q8 [facility] PRN Reason: Protocol Last Admin: 04/23/17 17:08 Dose: 100 mls/hr Vancomycin HCl 1 gm/ Sodium (Chloride) 250 mls @ 250 mls/hr IVPB Q12@0200,1400 [facility] PRN Reason: Protocol Last Admin: 04/23/17 13:11 Dose: 250 mls/hr Insulin Detemir (Levemir) 60 units SC HS [facility] Last Admin: 04/22/17 21:40 Dose: 60 units Insulin Human Lispro (Humalog) 0 units SC ACHS [facility] PRN Reason: Protocol Last Admin: 04/23/17 17:08 Dose: Not Given Insulin Human Lispro (Humalog) 12 units SC AC [facility] Last Admin: 04/23/17 17:08 Dose: 12 units Ramipril (Altace) 10 mg PO DAILY [facility] Last Admin: 04/23/17 09:50 Dose: 10 mg Physical Exam - Constitutional Appears: Well - Head Exam Head Exam: ATRAUMATIC, NORMAL INSPECTION, NORMOCEPHALIC - Eye Exam Eye Exam: EOMI, Normal appearance, PERRL Pupil Exam: NORMAL ACCOMODATION, PERRL - ENT Exam ENT Exam: Mucous Membranes Moist, Normal Exam - Neck Exam Neck exam: Positive for: Normal Inspection - Respiratory Exam Respiratory Exam: Clear to Auscultation Bilateral, NORMAL BREATHING PATTERN - Cardiovascular Exam Cardiovascular Exam: REGULAR RHYTHM, RRR, +S1, +S2, Systolic Murmur - GI/Abdominal Exam GI & Abdominal Exam: Normal Bowel Sounds, Soft. absent: Tenderness - Extremities Exam Extremities exam: Positive for: pedal pulses present - Back Exam Back exam: NORMAL INSPECTION - Neurological Exam Neurological exam: Alert, CN II-XII Intact, Normal Gait, Oriented x3, Reflexes Normal - Psychiatric Exam Psychiatric exam: Normal Affect, Normal Mood - Skin Skin Exam: Dry, Intact, Normal Color, Warm Results - Vital Signs Recent Vital Signs: Last Vital Signs Temp 98.6 F 04/23/17 16:18 Pulse 75 04/23/17 16:18 Resp 18 04/23/17 16:18 BP 121/70 04/23/17 16:18 Pulse Ox 95 04/23/17 16:18 - Labs Result Diagrams: 04/25/17 05:30 04/23/17 05:55 Labs: Laboratory Results - last 24 hr 04/22/17 04/22/17 04/23/17 17:55 21:20 02:57 WBC RBC Hgb Hct MCV MCH MCHC RDW Plt Count MPV Neut % (Auto) Lymph % (Auto) Harper % (Auto) Eos % (Auto) Baso % (Auto) Neut # (Auto) Lymph # (Auto) Harper # (Auto) Eos # (Auto) Baso # (Auto) Sodium Potassium Chloride Carbon Dioxide Anion Gap BUN Creatinine Est GFR ( Amer) Est GFR (Non-Af Amer) POC Glucose (mg/dL) 225 H 177 H Random Glucose Hemoglobin A1c Calcium Magnesium 1.8 Triglycerides Cholesterol LDL Cholesterol Direct HDL Cholesterol TSH 3rd Generation FSH 3rd Generation Luteinizing Hormone Prolactin 04/23/17 04/23/17 04/23/17 05:55 05:55 05:55 WBC 10.8 RBC 4.09 L Hgb 14.2 Hct 41.6 MCV 101.6 H MCH 34.7 H MCHC 34.1 RDW 13.0 Plt Count 175 MPV 9.0 Neut % (Auto) 77.2 H Lymph % (Auto) 7.8 L Harper % (Auto) 12.9 H Eos % (Auto) 1.7 Baso % (Auto) 0.4 Neut # (Auto) 8.4 H Lymph # (Auto) 0.8 L Harper # (Auto) 1.4 H Eos # (Auto) 0.2 Baso # (Auto) 0.0 Sodium 137 Potassium 3.6 Chloride 99 Carbon Dioxide 27 Anion Gap 15 BUN 12 Creatinine 0.8 Est GFR ( Amer) > 60 Est GFR (Non-Af Amer) > 60 POC Glucose (mg/dL) Random Glucose 187 H Hemoglobin A1c 8.0 H Calcium 8.9 Magnesium Triglycerides 66 Cholesterol 160 LDL Cholesterol Direct 116 HDL Cholesterol 24 L TSH 3rd Generation 1.05 FSH 3rd Generation < 0.7 Luteinizing Hormone < 0.2 Prolactin 13.5 04/23/17 04/23/17 04/23/17 06:00 10:35 16:01 WBC RBC Hgb Hct MCV MCH MCHC RDW Plt Count MPV Neut % (Auto) Lymph % (Auto) Harper % (Auto) Eos % (Auto) Baso % (Auto) Neut # (Auto) Lymph # (Auto) Harper # (Auto) Eos # (Auto) Baso # (Auto) Sodium Potassium Chloride Carbon Dioxide Anion Gap BUN Creatinine Est GFR ( Amer) Est GFR (Non-Af Amer) POC Glucose (mg/dL) 173 H 183 H 222 H Random Glucose Hemoglobin A1c Calcium Magnesium Triglycerides Cholesterol LDL Cholesterol Direct HDL Cholesterol TSH 3rd Generation FSH 3rd Generation Luteinizing Hormone Prolactin Assessment & Plan (1) Preop cardiovascular exam Assessment and Plan: pt can proceed with planned podiatric evaluation and surgery with low risk for perioperative cardiac event Status: Acute (2) Cellulitis in diabetic foot Status: Acute Priority: High (3) Diabetes mellitus with hyperglycemia Status: Acute (4) Osteomyelitis Status: Acute Priority: High (5) PVD (peripheral vascular disease) Assessment and Plan: arterial duplex reviewed triphasic flow with minimal microvascular disease keep pt on asa, statins and acei Status: Acute
[2017-04-26] MEDS: Piperacillin/Tazobact 3.375 GM in Sodium Chloride 0.9% 100 ML IVPB SCH ×3 (00:59→16:19)
--- NOTE | 2017-04-26 06:47 | CP.PCM.PN ---
Subjective - Date & Time of Evaluation Date of Evaluation: 04/26/17 Time of Evaluation: 06:47 - Subjective Subjective: Podiatry Progress Note - Dr. Olmedo 67 year old male patient seen and evaluated at bedside for right foot infection and 5th digit ischemia. Patient hemodynamically stable and NAD. No pain in right foot. Dressing clean/dry/intact with surgical shoe present on RLE. Patient aware he is scheduled for surgery tomorrow for 5th metatarsal amputation and debridement of nonviable tissue, and will be NPO @ mn. Denies N/V /F/D/C/SOB/calf pain. Objective - Vital Signs/Intake and Output Vital Signs (last 24 hours): Temp Pulse Resp BP Pulse Ox 98.4 F 70 20 137/80 95 04/26/17 00:00 04/26/17 00:00 04/26/17 00:00 04/26/17 00:00 04/26/17 00:00 - Medications Medications: Current Medications Acetaminophen (Tylenol 325mg Tab) 650 mg PO Q4 PRN PRN Reason: Pain, Mild (1-3) Enoxaparin Sodium (Lovenox) 40 mg SC DAILY [facility] PRN Reason: Protocol Last Admin: 04/25/17 09:11 Dose: 40 mg Piperacillin Sod/Tazobactam (Sod 3.375 gm/ Sodium Chloride) 100 mls @ 100 mls/ hr IVPB Q8 [facility] PRN Reason: Protocol Last Admin: 04/26/17 00:59 Dose: 100 mls/hr Ibuprofen (Motrin Tab) 400 mg PO Q8 PRN PRN Reason: Headache Last Admin: 04/25/17 20:16 Dose: 400 mg Insulin Detemir (Levemir) 60 units SC HS [facility] Last Admin: 04/25/17 21:53 Dose: 60 units Insulin Human Lispro (Humalog) 0 units SC ACHS [facility] PRN Reason: Protocol Last Admin: 04/25/17 21:52 Dose: Not Given Insulin Human Lispro (Humalog) 14 units SC AC [facility] Last Admin: 04/25/17 16:44 Dose: 14 units Ramipril (Altace) 10 mg PO DAILY [facility] Last Admin: 04/25/17 09:09 Dose: 10 mg - Labs Labs: 04/25/17 05:30 04/23/17 05:55 PT 12.4 Seconds (9.8-13.1) 04/22/17 13:45 INR 1.1 (0.9-1.2) 04/22/17 13:45 APTT 27.4 Seconds (25.6-37.1) 04/22/17 13:45 - Constitutional Appears: Well, Non-toxic, No Acute Distress - Extremities Exam Additional comments: RLE focused physical exam VASC: DP and PT pulses palpable 2/4. CFT <3 seconds to digits 1-4, unable to be assessed 5th digit. Temperature gradient warm to warm, mild increase in warmth around plantar ulceration, 5th digit remains cool to touch. Nonpitting edema noted to right foot. NEURO: Gross sensation diminished. DERM: Ulceration noted to plantar aspect of 4th interspace measuring approximately 0.5 x 0.5 x 3cm - ulcer extends into subcutaneous tissue, noted to have a 100% granular base and erythema periwound, erythema extending proximally into forefoot which is decreased since previous visit; serosanguinous drainage able to be expressed from plantar ulcer; (-)probe to bone; no fluctuance. Dusky/ischemic discoloration noted to 5th digit with necrotic tissue to dorsal and medial aspects; overlying skin ; approximately 2cc of purulence able to be expressed from dorsolateral and medial 5th digit. Well-healed cicatrices on dorsum of 2nd metatarsal, 3rd IS, and sub met 2. ORTHO: Pain on palpation 4th digit, no pain on palpation 5th digit. Muscle strength 5/5 for all dorsiflexors, plantarflexors, inverters, and everters. - Neurological Exam Neurological Exam: Alert, Awake, Oriented x3 - Psychiatric Exam Psychiatric exam: Normal Affect, Normal Mood Assessment and Plan - Assessment and Plan (Free Text) Assessment: 67 year old male with 1) right foot plantar ulceration secondary to trauma 2) 5th digit ischemia vs. gangrene Plan: Patient seen and evaluated Discussed with attending, Dr. Olmedo Afebrile, WBC 9.9, ESR 87 Right foot XR (04/22/17): Lucency at the base of the proximal phalanx 5th digit and also at the head of the 5th metatarsal is suspicious for OM Right foot MRI (04/22/17): Osteomyelitis at the proximal phalanx great toe and at the distal segment of the 1st metatarsal bone with phlegmon or abscess at 1st MPJ likely. Early OM not completely excluded at distal segment 5th metatarsal bone and proximal phalanx of digit. Diffuse cellulitis throughout forefoot evident Bilateral arterial duplex (04/22/17) -No significant stenosis identified at the bilateral lower extremity major arteries although low velocity but triphasic waveform is identified at the left anterior tibial a. -Above the bilateral DP arteries appear widely patent as well as the posterior tibia arteries Right foot plantar ulcer WCx - staph aureus ID recs appreciated - d/c Vancomycin c/s +MSSA, continue Zosyn 3.375g IV Cardio consult - SALENA Bernard to proceed with surgery Plan for OR tomorrow Wednesday04/27/17 @ 7:45 for partial 5th ray resection and debridement of nonviable tissue, debridement 1st ray -NPO @ mn PWB to right heel only in surgical shoe with the assistance of cane Continue PT Right foot cleansed with sterile saline and dressed with betadine, DSD Podiatry will continue to follow while in house
[2017-04-26] MEDS: Insulin Lispro (humaLOG) 100 Units/ml Inj SC SCH ×7 (06:56→22:16)
[2017-04-26 07:19] LABS: ALBUMIN 3.4 g/dL (3.5-5.0); ALT/SGPT 78 U/L (21-72); AST/SGOT 59 U/L (17-59); BLOOD UREA NITROGEN 10 mg/dl (9-20); GFR AFRICAN-AMERICAN > 60; GFR NON-AFRICAN AMERICAN > 60
--- NOTE | 2017-04-26 08:17 | PQF GENQUE ---
Dr. Carbajal, The attending physician is required to clarify conflicting documentation in the medical record. The following documentation is noted in the medical record: Diagnosis 1: DM Type 1 Documented by: Attending Location: H and P Diagnosis 2: DM Type 2 Documented by: Project Coordinator Location: Consult and progress notes This form is a permanent part of the medical record Clarification of your documentation is requested to better reflect the severity of illness and intensity of treatment of your patient. Indicators present [] Specify: [] [] Specify: [] [] Specify: [] [] Specify: [] Location in the medical record that reflects the above clinical findings: [] Treatment Provided: [] PHYSICIAN'S RESPONSE Based on your medical judgment of the clinical indicators outlined above please clarify the following: [] Practitioner response [] If unable to determine, please check the box, sign and date. Present On Admission (POA) Indicator: [] Present at the time of admission [] Not present at the time of admission [] Clinically Undetermined In responding to this query, please exercise your independent professional judgment. The fact that a question is asked does not imply that any particular answer is desired or expected. Thank you for your clarification on this documentation. If you have any questions please call. * Thank you, Elle Baca RN ext. #[phone] MTDD
[2017-04-26] MEDS: Enoxaparin 40 mg Syringe SC SCH (08:31)
--- NOTE | 2017-04-26 11:47 | CP.PCM.PN ---
Subjective - Date & Time of Evaluation Date of Evaluation: 04/26/17 Time of Evaluation: 08:00 - Subjective Subjective: right foot swollen drainage + awaiting OR for debridement and 5th ray resection MRI + OM Objective - Vital Signs/Intake and Output Vital Signs (last 24 hours): Temp Pulse Resp BP Pulse Ox 98.7 F 75 20 168/82 H 93 L 04/26/17 07:52 04/26/17 07:52 04/26/17 07:52 04/26/17 08:33 04/26/17 07:52 - Medications Medications: Current Medications Acetaminophen (Tylenol 325mg Tab) 650 mg PO Q4 PRN PRN Reason: Pain, Mild (1-3) Piperacillin Sod/Tazobactam (Sod 3.375 gm/ Sodium Chloride) 100 mls @ 100 mls/ hr IVPB Q8 [facility] PRN Reason: Protocol Last Admin: 04/26/17 08:34 Dose: 100 mls/hr Ibuprofen (Motrin Tab) 400 mg PO Q8 PRN PRN Reason: Headache Last Admin: 04/26/17 08:32 Dose: 400 mg Insulin Detemir (Levemir) 60 units SC HS [facility] Last Admin: 04/25/17 21:53 Dose: 60 units Insulin Human Lispro (Humalog) 0 units SC ACHS [facility] PRN Reason: Protocol Last Admin: 04/26/17 06:56 Dose: Not Given Insulin Human Lispro (Humalog) 14 units SC AC [facility] Last Admin: 04/26/17 08:30 Dose: 14 units Ramipril (Altace) 10 mg PO DAILY [facility] Last Admin: 04/26/17 08:33 Dose: 10 mg - Labs Labs: 04/25/17 05:30 04/26/17 06:20 PT 12.4 Seconds (9.8-13.1) 04/22/17 13:45 INR 1.1 (0.9-1.2) 04/22/17 13:45 APTT 27.4 Seconds (25.6-37.1) 04/22/17 13:45 - Constitutional Appears: Non-toxic, Chronically Ill - Head Exam Head Exam: NORMOCEPHALIC - Eye Exam Eye Exam: PERRL - ENT Exam ENT Exam: Mucous Membranes Dry - Neck Exam Neck Exam: absent: Lymphadenopathy - Respiratory Exam Respiratory Exam: Decreased Breath Sounds - Cardiovascular Exam Cardiovascular Exam: REGULAR RHYTHM - GI/Abdominal Exam GI & Abdominal Exam: Distended, Soft - Rectal Exam Rectal Exam: Deferred - Exam Exam: NORMAL INSPECTION - Extremities Exam Extremities Exam: Pedal Edema, Tenderness Assessment and Plan (1) Osteomyelitis Status: Acute (2) PVD (peripheral vascular disease) Status: Acute (3) Cellulitis in diabetic foot Status: Acute - Assessment and Plan (Free Text) Assessment: cont IV rx for 6 weeks await OR cultures
--- NOTE | 2017-04-26 18:27 | PN ---
ENDOCRINOLOGY FOLLOWUP NOTE DATE: LOCATION: In room 662 SUBJECTIVE: This is a 67-year-old male presenting here with right foot cellulitis and underlying neuropathic plantar ulceration, which was infected at the time of this admission and is currently being followed closely for metabolic management. His glycemic levels are fluctuating, but improved and the latest glucose values have ranged from 171 to 176 mg/dL. It was 273 at bedtime last night. The latest chemistry showed a BUN of 10, sodium 140, potassium 4.2, chloride 96, CO2 of 33, glucose 188, and creatinine 0.8. So, at this time, we will continue the same basal and bolus insulin regimen as ordered with Humalog given as 14 units subcutaneously t.i.d. before meals as ordered. We will continue the Levemir given as 60 units subcutaneously at bedtime daily as given. We will titrate incremental as indicated to optimize metabolic control. We will follow and advise accordingly. Nanette Blake MD
[2017-04-26] MEDS: Insulin Detemir 100 Units/ml Inj SC SCH (22:16)
--- NOTE | 2017-04-26 23:18 | CP.PCM.PN ---
Subjective - Date & Time of Evaluation Date of Evaluation: 04/26/17 Time of Evaluation: 17:50 - Subjective Subjective: Feels okay, offers no complains. Going to have surgery tomorrow Denies cp, sob, f/c/n/v Objective - Vital Signs/Intake and Output Vital Signs (last 24 hours): Temp Pulse Resp BP Pulse Ox 98 F 69 18 146/84 94 L 04/26/17 16:20 04/26/17 16:20 04/26/17 16:20 04/26/17 16:20 04/26/17 16:20 - Medications Medications: Current Medications Acetaminophen (Tylenol 325mg Tab) 650 mg PO Q4 PRN PRN Reason: Pain, Mild (1-3) Piperacillin Sod/Tazobactam (Sod 3.375 gm/ Sodium Chloride) 100 mls @ 100 mls/ hr IVPB Q8 [facility] PRN Reason: Protocol Last Admin: 04/26/17 16:19 Dose: 100 mls/hr Ibuprofen (Motrin Tab) 400 mg PO Q8 PRN PRN Reason: Headache Last Admin: 04/26/17 08:32 Dose: 400 mg Insulin Detemir (Levemir) 60 units SC HS [facility] Last Admin: 04/26/17 22:16 Dose: 60 units Insulin Human Lispro (Humalog) 0 units SC ACHS [facility] PRN Reason: Protocol Last Admin: 04/26/17 22:16 Dose: Not Given Insulin Human Lispro (Humalog) 14 units SC AC [facility] Last Admin: 04/26/17 17:45 Dose: 14 units Ramipril (Altace) 10 mg PO DAILY [facility] Last Admin: 04/26/17 08:33 Dose: 10 mg - Labs Labs: 04/25/17 05:30 04/26/17 06:20 PT 12.4 Seconds (9.8-13.1) 04/22/17 13:45 INR 1.1 (0.9-1.2) 04/22/17 13:45 APTT 27.4 Seconds (25.6-37.1) 04/22/17 13:45 - Constitutional Appears: Well, No Acute Distress - Head Exam Head Exam: ATRAUMATIC - Respiratory Exam Respiratory Exam: Clear to Ausculation Bilateral, NORMAL BREATHING PATTERN - Cardiovascular Exam Cardiovascular Exam: REGULAR RHYTHM, +S1, +S2 - GI/Abdominal Exam GI & Abdominal Exam: Soft, Normal Bowel Sounds - Extremities Exam Additional comments: right foot dressing - Neurological Exam Neurological Exam: Alert, Normal Gait - Psychiatric Exam Psychiatric exam: Normal Affect, Normal Mood - Skin Skin Exam: Normal Color, Warm Assessment and Plan (1) Cellulitis in diabetic foot Status: Acute (2) Osteomyelitis Status: Acute (3) PVD (peripheral vascular disease) Status: Acute (4) Insulin dependent diabetes mellitus Status: Acute - Assessment and Plan (Free Text) Assessment: 67 year old male with cellulitis and OM of right foot Plan: Scheduled for OR tomorrow for wound debridement and 5th ray resection Pt is medically stable to proceed to surgery wound cultures MSSA continue abx per ID Will need 6 weeks IV Rx Hold lovenox NPO past midnight IVF
[2017-04-27] MEDS: Piperacillin/Tazobact 3.375 GM in Sodium Chloride 0.9% 100 ML IVPB SCH ×3 (00:43→16:34)
--- NOTE | 2017-04-27 07:15 | CP.PCM.PN ---
Subjective - Date & Time of Evaluation Date of Evaluation: 04/27/17 Time of Evaluation: 07:12 - Subjective Subjective: Podiatry Progress Note - Dr. Olmedo 67 year old male patient seen and evaluated at bedside for right foot infection and 5th digit ischemia. Patient hemodynamically stable and NAD. and sister present at bedside. No pain in right foot. Dressing clean/dry/intact with surgical shoe present on RLE. Patient aware he is scheduled for surgery this AM for 5th metatarsal amputation and debridement of nonviable tissue. NPO confirmed. Denies N/V/F/D/C/SOB/calf pain. Objective - Vital Signs/Intake and Output Vital Signs (last 24 hours): Temp Pulse Resp BP Pulse Ox 99.2 F 75 20 157/85 H 95 04/27/17 00:00 04/27/17 00:00 04/27/17 00:00 04/27/17 00:00 04/27/17 00:00 - Medications Medications: Current Medications Acetaminophen (Tylenol 325mg Tab) 650 mg PO Q4 PRN PRN Reason: Pain, Mild (1-3) Piperacillin Sod/Tazobactam (Sod 3.375 gm/ Sodium Chloride) 100 mls @ 100 mls/ hr IVPB Q8 [facility] PRN Reason: Protocol Last Admin: 04/27/17 00:43 Dose: 100 mls/hr Ibuprofen (Motrin Tab) 400 mg PO Q8 PRN PRN Reason: Headache Last Admin: 04/26/17 08:32 Dose: 400 mg Insulin Detemir (Levemir) 60 units SC HS [facility] Last Admin: 04/26/17 22:16 Dose: 60 units Insulin Human Lispro (Humalog) 0 units SC ACHS [facility] PRN Reason: Protocol Last Admin: 04/26/17 22:16 Dose: Not Given Insulin Human Lispro (Humalog) 14 units SC AC [facility] Last Admin: 04/26/17 17:45 Dose: 14 units Ramipril (Altace) 10 mg PO DAILY [facility] Last Admin: 04/26/17 08:33 Dose: 10 mg - Labs Labs: 04/25/17 05:30 04/26/17 06:20 PT 12.4 Seconds (9.8-13.1) 04/22/17 13:45 INR 1.1 (0.9-1.2) 04/22/17 13:45 APTT 27.4 Seconds (25.6-37.1) 04/22/17 13:45 - Constitutional Appears: Well, Non-toxic, No Acute Distress - Extremities Exam Additional comments: RLE dressing clean/dry/intact. Surgical shoe present RLE. - Neurological Exam Neurological Exam: Alert, Awake, Oriented x3 - Psychiatric Exam Psychiatric exam: Normal Affect, Normal Mood Assessment and Plan - Assessment and Plan (Free Text) Assessment: 67 year old male with 1) right foot plantar ulceration secondary to trauma 2) 5th digit ischemia vs. gangrene Plan: Pt was seen and evaluated Pt NPO status was confirmed All Pre-op testing and clearance was in the chart Pt has exhausted all conservative treatment at this time and is opting for surgical intervention Pt was explained procedure and post-operative course All pt's questions were answered to satisfaction No guarantees were made Pt understands all risks, benefits and complications of procedure Pt will follow-up with Dr. Olmedo
[2017-04-27] MEDS ORDERED: Bupivacaine 0.5% Inj(30mL) IJ ONE ×2 (07:20→08:00)
[2017-04-27] MEDS ORDERED: Lidocaine 1% Inj (20ml) IJ ONE ×2 (07:20→08:00)
[2017-04-27] MEDS ORDERED: Dextrose 5%/0.9% NS 1,000 ML IV SCH (07:30)
[2017-04-27] MEDS ORDERED: Bupivacaine 0.5% Inj(30mL) ONE (07:31)
[2017-04-27] MEDS ORDERED: Lidocaine 1% Inj (20ml) ONE ×3 (07:31→13:18)
[2017-04-27] MEDS ORDERED: Lactated Ringer's 1,000 ML IV ONE (07:45)
[2017-04-27] MEDS ORDERED: Midazolam 2 MG/2 ML VIAL ONE (07:55)
[2017-04-27] MEDS ORDERED: Propofol 10 mg/ml Inj (20 ML) ONE (07:55)
[2017-04-27] MEDS ORDERED: Piperacillin/Tazobact 3.375 gm Inj IVPB ONE (08:05)
[2017-04-27] MEDS ORDERED: Iodoform 1/2inx15ft BOT EXT ONE (08:54)
--- NOTE | 2017-04-27 09:15 | PCM.SURG1 ---
Surgeon's Initial Post Op Note - Surgeon's Notes Surgeon: Dr. Olmedo Water Quality Technician: Eloina Anderson, PGY1, Inderjit Tipton PGY1 Type of Anesthesia: General IV, Local (16cc 1:1 mixture 1% lidocaine plain, 0.5 % marcaine plain) Anesthesia Administered By: Dr. Davidson Pre-Operative Diagnosis: Right 5th digit gangrene/osteomyelitis and abscess Operative Findings: See operative report. Materials: 1/2" iodoform packing, 0 prolene, 3-0 prolene Post-Operative Diagnosis: Same as above Operation Performed: 1) Right partial 5th ray resection with removal of nonviable soft tissue and bone. 2) Right 1st ray exostectomy Specimen/Specimens Removed: 1) Right 5th digit. 2) Right 5th metatarsal head clean margin. 3) Lateral foot wound culture. 4) Right 1st MPJ bone Estimated Blood Loss: EBL {In ML}: 10 Blood Products Given: N/A Drains Used: No Drains Post-Op Condition: Good Date of Surgery/Procedure: 04/27/17 Time of Surgery/Procedure: 09:22
[2017-04-27] MEDS ORDERED: Oxycodone/Acetaminophen 5/325 mg Tab PO PRN ×2 (09:25)
[2017-04-27] MEDS: Insulin Lispro (humaLOG) 100 Units/ml Inj SC SCH ×7 (10:06→21:56)
[2017-04-27] MEDS: Lactated Ringer's 1,000 ML IV SCH ×2 (10:30→20:00)
--- NOTE | 2017-04-27 10:35 | RAD ---
PROCEDURE: Right Foot Radiographs. HISTORY: s/p right partial 5th ray resection COMPARISON: Right foot radiographs 04/22/2017. FINDINGS: BONES: Amputation of the right 5th digit is now apparent as well as the distal segment of the right 5th metatarsal bone. Postoperative changes seen at the amputation site. Deformity of the 3rd as well as somewhat at the 2nd metatarsal bone is again appreciated distally status post prior insult. Gross deformity of the 1st interphalangeal joint with low prominent local soft tissue changes are again reiterated which are affected by osteomyelitis and local abscess on prior MRI 04/22/2017. Please see separate report. JOINTS: As above SOFT TISSUES: As above OTHER FINDINGS: None. IMPRESSION: Interval amputation right 50s and distal metaphysis/ epiphysis right 5th metatarsal bone. Additional findings as described above.
--- NOTE | 2017-04-27 11:24 | CP.PCM.PN ---
Subjective - Date & Time of Evaluation Date of Evaluation: 04/27/17 Time of Evaluation: 09:00 - Subjective Subjective: s/p amp 5th digit with debridement IV rx in progress Objective - Vital Signs/Intake and Output Vital Signs (last 24 hours): Temp Pulse Resp BP Pulse Ox 98.1 F 64 20 139/79 94 L 04/27/17 10:09 04/27/17 10:09 04/27/17 10:09 04/27/17 10:31 04/27/17 10:09 Intake and Output: 04/27/17 04/27/17 06:59 18:59 Intake Total 500 Balance 500 - Medications Medications: Current Medications Acetaminophen (Tylenol 325mg Tab) 650 mg PO Q4 PRN PRN Reason: Pain, Mild (1-3) Piperacillin Sod/Tazobactam (Sod 3.375 gm/ Sodium Chloride) 100 mls @ 100 mls/ hr IVPB Q8 DORYS PRN Reason: Protocol Last Admin: 04/27/17 10:07 Dose: Not Given Dextrose/Sodium Chloride (Dextrose 5%/0.9% Ns 1000 Ml) 1,000 mls @ 0 mls/hr IV .Q0M DORYS PRN Reason: Per Protocol Stop: 04/28/17 07:20 Lactated Ringer's (Lactated Ringer's) 1,000 mls @ 100 mls/hr IV .Q10H [facility] Last Admin: 04/27/17 10:30 Dose: 100 mls/hr Ibuprofen (Motrin Tab) 400 mg PO Q8 PRN PRN Reason: Headache Last Admin: 04/26/17 08:32 Dose: 400 mg Insulin Detemir (Levemir) 60 units SC HS [facility] Last Admin: 04/26/17 22:16 Dose: 60 units Insulin Human Lispro (Humalog) 0 units SC ACHS DORYS PRN Reason: Protocol Last Admin: 04/27/17 10:06 Dose: Not Given Insulin Human Lispro (Humalog) 14 units SC AC [facility] Last Admin: 04/27/17 10:06 Dose: Not Given Oxycodone/Acetaminophen (Percocet 5/325 Mg Tab) 1 tab PO Q6 PRN PRN Reason: Pain, Mild (1-3) Stop: 04/30/17 09:26 Oxycodone/Acetaminophen (Percocet 5/325 Mg Tab) 2 tab PO Q6 PRN PRN Reason: Pain, severe (8-10) Stop: 04/30/17 09:26 Ramipril (Altace) 10 mg PO DAILY DORYS Last Admin: 04/27/17 10:31 Dose: 10 mg - Labs Labs: 04/25/17 05:30 04/26/17 06:20 PT 12.4 Seconds (9.8-13.1) 04/22/17 13:45 INR 1.1 (0.9-1.2) 04/22/17 13:45 APTT 27.4 Seconds (25.6-37.1) 04/22/17 13:45 - Constitutional Appears: Non-toxic, Chronically Ill - Head Exam Head Exam: NORMOCEPHALIC - Eye Exam Eye Exam: PERRL - ENT Exam ENT Exam: Mucous Membranes Dry - Neck Exam Neck Exam: absent: Lymphadenopathy - Respiratory Exam Respiratory Exam: Decreased Breath Sounds - Cardiovascular Exam Cardiovascular Exam: REGULAR RHYTHM - GI/Abdominal Exam GI & Abdominal Exam: Distended - Rectal Exam Rectal Exam: Deferred Assessment and Plan (1) Osteomyelitis Status: Acute (2) PVD (peripheral vascular disease) Status: Acute (3) Cellulitis in diabetic foot Status: Acute - Assessment and Plan (Free Text) Assessment: cont iv rx / wound caqre will need PICC
--- NOTE | 2017-04-27 13:52 | PN ---
DATE: ENDO FOLLOWUP NOTE LOCATION: Room 662. SUBJECTIVE: This is a 67-year-old male with recent uncontrolled type 2 insulin-requiring diabetes now being followed closely for metabolic management. He is undergoing also IV antibiotic management and debridement of his right foot cellulitis with underlying neuropathic plantar ulceration as noted thereof. His glucose values have ranged overnight from 147 mg/dL to 157 mg/dL. It was 142 at bedtime last night. The latest chemistry showed BUN of 10, sodium of 140, potassium of 4.2, chloride of 96, CO2 of 33, glucose of 188, and creatinine of 0.8. So at this time, we will continue the same basal and bolus insulin regimen as ordered to allow for dose equilibration and keep him on the Humalog given as 14 units subcu t.i.d. before meals as ordered. We will continue also the Levemir given as 60 units subcu at bedtime daily as given. We will titrate incrementally as indicated to optimize metabolic control. We will continue the low-dose correction scale using Humalog insulin as given. We will obtain serial chemistries and supplement accordingly as needed. We will follow. Nanette Blake MD
--- NOTE | 2017-04-27 14:01 | PCM.SURG1 ---
Surgeon's Initial Post Op Note - Surgeon's Notes Surgeon: Jeremy Bailon MD Improvement Director: None Type of Anesthesia: Local Pre-Operative Diagnosis: osteomyelitis Operative Findings: patent right basilic vein. catheter length: 41 cm. catheter tip: cavoatrial junction Post-Operative Diagnosis: same Operation Performed: RUE PICC Insertion Specimen/Specimens Removed: n/a Estimated Blood Loss: EBL {In ML}: 0 Date of Surgery/Procedure: 04/27/17 Time of Surgery/Procedure: 13:45
--- NOTE | 2017-04-27 16:02 | VASCULAR ---
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 COMPARISON: PICC insertion performed 03/17/2012 PROCEDURE: 1. Focused ultrasound of the right upper extremity vasculature. 2. Ultrasound-guided access. 3. Insertion of peripherally inserted central venous catheter. 4. Fluoroscopic localization of catheter tip. PRE-PROCEDURE FINDINGS: 1. Patent right basilic vein. POST-PROCEDURE FINDINGS: 1. Placement of 4 Namibian single-lumen PICC. 2. Catheter length: 41 cm. 3. Catheter tip at cavoatrial junction. INTERVENTIONAL RADIOLOGIST: Jeremy Bailon M.D. (the attending was present for the entire procedure) ANESTHESIA: None. MEDICATION: Lidocaine 1% for local subcutaneous analgesia. COMPLICATIONS: None. RADIATION DOSE: Fluoroscopy Time: 31.6 seconds Cumulative Dose: 7.33 mGy PROCEDURE DESCRIPTION AND FINDINGS: The risks, benefits, alternatives and possible complications of the procedure were fully discussed; all questions were answered and informed consent was obtained. The patient was brought into the interventional suite and a pre-procedure 'time-out' was performed. The patient was placed on the fluoroscopy table in the supine position. The right upper extremity was prepped and draped in the usual sterile fashion. Maximum sterile barrier precautions were maintained throughout the entire procedure. Preliminary ultrasound images of the right upper extremity vasculature demonstrate patency of the right basilic vein. Following subcutaneous infiltration of 1% lidocaine for local analgesia, under ultrasound guidance, a 21-gauge needle was advanced into the right basilic vein with real-time visualization of needle entry. The ultrasound images were permanently recorded and submitted to the PACS. A 0.018 guidewire was advanced centrally to the cavoatrial junction. A 4.5 [place]ibian peel-away sheath was advanced over the guidewire. After obtaining length measurement, a 4 [place]ian single-lumen PICC was placed with the tip of the catheter at the cavoatrial junction. The total length of the catheter is 41 cm. The hub of the PICC was secured to the skin using a sterile adhesive bandage. The patient tolerated the procedure well without immediate post-procedure complications and was transferred back to the floor in stable condition. IMPRESSION: SUCCESSFUL INSERTION OF RIGHT UPPER EXTREMITY PICC. PICC OK TO USE.
[2017-04-27] MEDS: Insulin Detemir 100 Units/ml Inj SC SCH (21:55)
--- NOTE | 2017-04-27 22:06 | CP.PCM.PN ---
Subjective - Date & Time of Evaluation Date of Evaluation: 04/27/17 Time of Evaluation: 15:00 - Subjective Subjective: Feels a little tired. Had surgery today. Denies cp, sob,fever or chills. To remain NWB today per podiatry Objective - Vital Signs/Intake and Output Vital Signs (last 24 hours): Temp Pulse Resp BP Pulse Ox 99 F 74 20 107/64 95 04/27/17 16:34 04/27/17 16:34 04/27/17 16:34 04/27/17 16:34 04/27/17 16:34 Intake and Output: 04/27/17 04/28/17 18:59 06:59 Intake Total 500 Balance 500 - Medications Medications: Current Medications Acetaminophen (Tylenol 325mg Tab) 650 mg PO Q4 PRN PRN Reason: Pain, Mild (1-3) Enoxaparin Sodium (Lovenox) 40 mg SC DAILY DORYS PRN Reason: Protocol Piperacillin Sod/Tazobactam (Sod 3.375 gm/ Sodium Chloride) 100 mls @ 100 mls/ hr IVPB Q8 DORYS PRN Reason: Protocol Last Admin: 04/27/17 16:34 Dose: 100 mls/hr Dextrose/Sodium Chloride (Dextrose 5%/0.9% Ns 1000 Ml) 1,000 mls @ 0 mls/hr IV .Q0M DORYS PRN Reason: Per Protocol Stop: 04/28/17 07:20 Lactated Ringer's (Lactated Ringer's) 1,000 mls @ 100 mls/hr IV .Q10H [facility] Last Admin: 04/27/17 20:00 Dose: Not Given Ibuprofen (Motrin Tab) 400 mg PO Q8 PRN PRN Reason: Headache Last Admin: 04/27/17 20:09 Dose: 400 mg Insulin Detemir (Levemir) 60 units SC HS [facility] Last Admin: 04/27/17 21:55 Dose: 60 units Insulin Human Lispro (Humalog) 0 units SC ACHS DORYS PRN Reason: Protocol Last Admin: 04/27/17 21:56 Dose: Not Given Insulin Human Lispro (Humalog) 14 units SC AC [facility] Last Admin: 04/27/17 17:16 Dose: 14 units Oxycodone/Acetaminophen (Percocet 5/325 Mg Tab) 1 tab PO Q6 PRN PRN Reason: Pain, Mild (1-3) Stop: 04/30/17 09:26 Oxycodone/Acetaminophen (Percocet 5/325 Mg Tab) 2 tab PO Q6 PRN PRN Reason: Pain, severe (8-10) Stop: 04/30/17 09:26 Ramipril (Altace) 10 mg PO DAILY DORYS Last Admin: 04/27/17 10:31 Dose: 10 mg - Labs Labs: 04/25/17 05:30 04/26/17 06:20 PT 12.4 Seconds (9.8-13.1) 04/22/17 13:45 INR 1.1 (0.9-1.2) 04/22/17 13:45 APTT 27.4 Seconds (25.6-37.1) 04/22/17 13:45 - Constitutional Appears: Well, No Acute Distress - Head Exam Head Exam: ATRAUMATIC, NORMOCEPHALIC - Respiratory Exam Respiratory Exam: Clear to Ausculation Bilateral, NORMAL BREATHING PATTERN - Cardiovascular Exam Cardiovascular Exam: REGULAR RHYTHM, +S1, +S2 - Extremities Exam Additional comments: Right foot dressing intact - Neurological Exam Neurological Exam: Alert, Oriented x3 - Psychiatric Exam Psychiatric exam: Normal Affect, Normal Mood - Skin Skin Exam: Normal Color, Warm Assessment and Plan (1) Cellulitis in diabetic foot Status: Acute (2) Osteomyelitis Status: Acute (3) PVD (peripheral vascular disease) Status: Acute (4) Insulin dependent diabetes mellitus Status: Acute - Assessment and Plan (Free Text) Assessment: 67 year old male with OM, s/p partial 5th ray amputation Plan: Continue antibiotics NWB today pain medication prn Picc line placed today will need 6 weeks IV Rx per ID resume lovenox in am
[2017-04-28] MEDS: Piperacillin/Tazobact 3.375 GM in Sodium Chloride 0.9% 100 ML IVPB SCH ×3 (00:32→16:36)
[2017-04-28 06:39] LABS: BASO # 0.1 K/uL (0.0-0.2); EOS # 0.1 K/uL (0.0-0.7); HEMOGLOBIN 13.9 g/dL (12.0-18.0); LYMPH % 13.8 % (20.0-40.0); MEAN CELL VOLUME 99.8 fl (80.0-94.0); MEAN CORPUSCULAR HEMOGLOBIN 34.5 pg (27.0-31.0); MEAN CORPUSCULAR HGB CONC 34.5 g/dL (33.0-37.0); MEAN PLATELET VOLUME 8.9 fl (7.2-11.7); MONO % 13.8 % (0.0-10.0); NEUT # 4.9 K/uL (1.8-7.0); NEUT % 69.4 % (50.0-75.0); RBC 4.04 Mil/uL (4.40-5.90); RED CELL DISTRIBUTION WIDTH 13.1 % (11.5-14.5); WHITE BLOOD COUNT 7.1 K/uL (4.8-10.8)
[2017-04-28 07:00] LABS: ALB/GLOB RATIO 0.9 (1.0-2.1); ALBUMIN 3.1 g/dL (3.5-5.0); ALT/SGPT 54 U/L (21-72); AST/SGOT 27 U/L (17-59); BLOOD UREA NITROGEN 11 mg/dl (9-20); CALCIUM 8.5 mg/dL (8.4-10.2); GFR AFRICAN-AMERICAN > 60; GFR NON-AFRICAN AMERICAN > 60
--- NOTE | 2017-04-28 07:49 | CP.PCM.PN ---
Subjective - Date & Time of Evaluation Date of Evaluation: 04/28/17 Time of Evaluation: 07:48 - Subjective Subjective: Podiatry Progress Note - Dr. Olmedo 67 year old male patient seen and evaluated at bedside for right foot infection and 5th digit ischemia, POD#1 right partial 5th ray resection and hallux biopsy. Patient resting comfortably, NAD. present at bedside. Patient denies any pain in right foot. Dressing clean/dry/intact with multipodus boot present to RLE. Patient complaining of recently developed cold which started overnight; c/o non-productive cough and sinus pressure. Denies N/V/F/D/C/SOB/ calf pain. Objective - Vital Signs/Intake and Output Vital Signs (last 24 hours): Temp Pulse Resp BP Pulse Ox 98.0 F 69 19 145/82 95 04/28/17 04:00 04/28/17 04:00 04/28/17 04:00 04/28/17 04:00 04/28/17 04:00 - Medications Medications: Current Medications Acetaminophen (Tylenol 325mg Tab) 650 mg PO Q4 PRN PRN Reason: Pain, Mild (1-3) Enoxaparin Sodium (Lovenox) 40 mg SC DAILY DORYS PRN Reason: Protocol Piperacillin Sod/Tazobactam (Sod 3.375 gm/ Sodium Chloride) 100 mls @ 100 mls/ hr IVPB Q8 DORYS PRN Reason: Protocol Last Admin: 04/28/17 00:32 Dose: 100 mls/hr Lactated Ringer's (Lactated Ringer's) 1,000 mls @ 100 mls/hr IV .Q10H [facility] Last Admin: 04/27/17 20:00 Dose: Not Given Ibuprofen (Motrin Tab) 400 mg PO Q8 PRN PRN Reason: Headache Last Admin: 04/27/17 20:09 Dose: 400 mg Insulin Detemir (Levemir) 60 units SC HS [facility] Last Admin: 04/27/17 21:55 Dose: 60 units Insulin Human Lispro (Humalog) 0 units SC ACHS DORYS PRN Reason: Protocol Last Admin: 04/27/17 21:56 Dose: Not Given Insulin Human Lispro (Humalog) 14 units SC AC [facility] Last Admin: 04/27/17 17:16 Dose: 14 units Oxycodone/Acetaminophen (Percocet 5/325 Mg Tab) 1 tab PO Q6 PRN PRN Reason: Pain, Mild (1-3) Stop: 04/30/17 09:26 Oxycodone/Acetaminophen (Percocet 5/325 Mg Tab) 2 tab PO Q6 PRN PRN Reason: Pain, severe (8-10) Stop: 04/30/17 09:26 Ramipril (Altace) 10 mg PO DAILY DORYS Last Admin: 04/27/17 10:31 Dose: 10 mg - Labs Labs: 04/28/17 05:35 04/28/17 05:35 PT 12.4 Seconds (9.8-13.1) 04/22/17 13:45 INR 1.1 (0.9-1.2) 04/22/17 13:45 APTT 27.4 Seconds (25.6-37.1) 04/22/17 13:45 - Constitutional Appears: Well, Non-toxic, No Acute Distress - Extremities Exam Additional comments: RLE focused physical exam VASC: DP and PT pulses palpable 2/4. CFT <3 seconds to digits 1-4. Temperature gradient warm to warm. Nonpitting edema noted to right foot. NEURO: Gross sensation diminished. DERM: Ulceration noted to plantar aspect of 4th interspace measuring approximately 0.5 x 0.5 x 3cm - ulcer extends into subcutaneous tissue, noted to have a 100% granular base and erythema periwound; minimal serosanguinous drainage able to be expressed from plantar ulcer; (-)probe to bone; no fluctuance. Surgical wound s/p partial 5th ray amputation with 1/2" iodoform packing in space; surrounding wound bed is 100% granular extending down to bone ; wound is noted to have healthy skin margins; prolene retention suture intact with no separation noted; no purulence able to be expressed. Surgical incision noted to dorsum of 1st MPJ with sutures intact and no wound dehiscence noted; minimal erythema periwound. ORTHO: No pain on palpation 5th digit. Muscle strength 5/5 for all dorsiflexors , plantarflexors, inverters, and everters. - Neurological Exam Neurological Exam: Alert, Awake, Oriented x3 - Psychiatric Exam Psychiatric exam: Normal Affect, Normal Mood Assessment and Plan - Assessment and Plan (Free Text) Assessment: 67 year old male with 1) right foot plantar ulceration secondary to trauma 2) 5th digit ischemia vs. gangrene 1 day s/p Right partial 5th ray resection with removal of nonviable soft tissue and bone and 1st mpj bone biopsy Plan: Patient seen and evaluated Discussed with attending, Dr. Olmedo Afebrile, WBC 7.1 Right foot XR (04/22/17): Lucency at the base of the proximal phalanx 5th digit and also at the head of the 5th metatarsal is suspicious for OM Right foot MRI (04/22/17): Osteomyelitis at the proximal phalanx great toe and at the distal segment of the 1st metatarsal bone with phlegmon or abscess at 1st MPJ likely. Early OM not completely excluded at distal segment 5th metatarsal bone and proximal phalanx of digit. Diffuse cellulitis throughout forefoot evident Bilateral arterial duplex (04/22/17) -No significant stenosis identified at the bilateral lower extremity major arteries although low velocity but triphasic waveform is identified at the left anterior tibial a. -Above the bilateral DP arteries appear widely patent as well as the posterior tibia arteries Right foot XR (04/27/17): 5th metatarsal amputation Right foot plantar ulcer WCx (04/22/17) - staph aureus Intra op specimens removed: -5th digit path: pending -5th met clean margin: pending -Deep WCx: pending -1st MPJ path: pending Continue abx per ID - d/c Vancomycin c/s +MSSA, continue Zosyn 3.375g IV -Podiatry recommending 6 weeks of IVabx via PICC, f/u ID recs PWB to right heel only in surgical shoe with the assistance of cane Continue PT Right foot cleansed with sterile saline, packing advanced, and dressed with xeroform, DSD Patient to follow up with Dr. Olmedo as outpatient within 1 week of discharge ; keep dressing clean/dry/intact until POV#1 Podiatry will continue to follow while in house
[2017-04-28] MEDS: Insulin Lispro (humaLOG) 100 Units/ml Inj SC SCH ×7 (08:13→21:28)
[2017-04-28] MEDS: Enoxaparin 40 mg Syringe SC SCH (08:17)
[2017-04-28] MEDS: guaiFENesin DM 100 mg-10 mg/5 ml UD PO PRN ×2 (17:07→23:06)
--- NOTE | 2017-04-28 19:38 | PN ---
ENDOCRINOLOGY FOLLOWUP NOTE DATE: LOCATION: . SUBJECTIVE: This is a 67-year-old male presenting here with right foot cellulitis and underlying neuropathic diabetic foot ulceration, currently undergoing IV antibiotic management and debridement procedures as noted thereof and is also being followed closely for metabolic management. His glycemic levels are fluctuating, but much improved at this time. His glucose values have ranged someone from 145-173 and 194 and 224 mg/dL. His latest chemistries showed a BUN of 11, sodium 139, potassium 3.9, chloride 96, CO2 of 31, glucose 183 and creatinine 0.8. So at this time, we will continue the same basal and bolus insulin regimen to allow for dose equilibration and keep him on the keep him on the Humalog given as 14 units subcu t.i.d. before meals as ordered. We will continue the Levemir given as 60 units subcu at bedtime daily as given. We will also continue the low-dose correction scale using Humalog insulin as ordered. We will follow and advise accordingly. Nanette Blake MD
[2017-04-28] MEDS: Insulin Detemir 100 Units/ml Inj SC SCH (21:30)
--- NOTE | 2017-04-28 21:37 | OP ---
PROCEDURE DATE: 04/27/2017 PREOPERATIVE DIAGNOSES: 1. Right fifth digit gangrene/osteomyelitis and abscess. 2. First metatarsophalangeal joint, rule out osteomyelitis. POSTOPERATIVE DIAGNOSES: 1. Right fifth digit gangrene/osteomyelitis and abscess. 2. First metatarsophalangeal joint, rule out osteomyelitis. PROCEDURE: 1. Right partial fifth ray resection with removal of nonviable soft tissue and bone. 2. Right first metatarsophalangeal joint bone biopsy. SURGEON: Jurgen Olmedo DPM HEALTH SERVICE COORDINATOR: Sim Anderson PGY1 and James Tipton PGY1 TYPE OF ANESTHESIA: IV sedation with local, 16 mL of 1:1 mixture of 1% lidocaine plain and 0.5% Marcaine plain. ANESTHESIOLOGIST: Linus Davidson MD INDICATIONS: The patient is a 67-year-old male with the above diagnoses. The patient has exhausted conservative treatment at this time and now requests surgical intervention. The patient signed the consent after careful explanation of the risks, benefits, complications, and alternatives to procedure and wishes to proceed. No guarantees were given nor implied. PREPARATION: The patient was brought into the operating room and placed on the operating room table in a supine position. Time-out was performed for identification of the correct patient and procedure. After the induction of IV sedition, the patient received a total of 16 mL of a 1:1 mixture of 1% lidocaine plain and 0.5% Marcaine plain in ankle block fashion. Once local anesthesia was achieved, the right foot was then prepped and draped in normal sterile manner and the procedure began. PROCEDURE #1: Right partial fifth ray resection with removal of nonviable soft tissue and bone. Attention was directed to the right fifth digit where as noted to have demarcated dusky ischemic changes extending proximally into the base of the digit. The skin overlying the fifth digit was eroded revealing a red/granular and black/necrotic base. Utilizing a 15 blade, a dorsolaterally based teardrop incision was made from the distolateral fifth metatarsal then circumfirentially at the level of the fifth metatarsophalangeal joint. The incision was extended down through subcutaneous layers to the level of bone. Using a bone clamp to stabilize the fifth digit, the fifth digit was then disarticulated from at the level of the fifth metatarsophalangeal joint. The specimen was then passed from the operative field to be sent to pathology. All periosteal tissue was then carefully resected using a Huerta elevator. Using a sagittal saw, the fifth metatarsal head was resected from dorsal distal medial to plantar proximal lateral, passed from the operative field to be sent to pathology. Using a crown and collar, skin margins were debulked to allow for adequate reapproximation of wound edges. At this time, a deep wound culture was taken at the amputation site. The surgical site was then flushed with copious amounts of sterile saline. A retention suture using 0 Prolene was placed at the midpoint of the amputation site. The surgical wound was then dressed with Xeroform and sterile gauze. PROCEDURE #2: Right first MPJ bone biopsy. Attention was directed to the dorsal aspect of the first MPJ. Using a 15 blade, an approximately 3 cm in length linear incision was created along the dorsal first MPJ. The incision was carried down through fibrous scar tissue to the level of bone, thus exposing the base of the hallucal proximal phalanx. Fibrous scar tissue was debulked to allow for suitable flap for closure. Next, utilizing a sagittal saw, the base of the hallucal proximal phalanx was resected and passed from the operative field to be sent to pathology. A rongeur was then used to smooth down all bony prominences. The wound was then irrigated with copious amounts of sterile saline. With the use of 3-0 Prolene, the skin edges were reapproximated using a simple interrupted suture technique and Xeroform was applied on top of the incision and dressed with sterile gauze. The right foot was then dressed with sterile gauze, ABDs, and Karina. POSTOPERATIVE CONDITION: The patient tolerated the anesthesia and procedure well and was escorted to the recovery room with vital signs stable and neurovascular status intact to the right foot. The patient is to remain nonweightbearing to the right lower extremity for the next 24 hours after surgery; following that he can be partial weightbearing to the heel only. Podiatry will continue to follow the patient while in house. Sim Anderson DPM Jurgen Olmedo DPM [employer]
--- NOTE | 2017-04-28 22:45 | CP.PCM.PN ---
Subjective - Date & Time of Evaluation Date of Evaluation: 04/28/17 Time of Evaluation: 15:30 - Subjective Subjective: [place] congested this am but not now. Has cough. Offers no other complains Ambulating with PWB to heel. Denies cp, sob, fever or chills Objective - Vital Signs/Intake and Output Vital Signs (last 24 hours): Temp Pulse Resp BP Pulse Ox 98 F 71 16 155/82 H 95 04/28/17 21:00 04/28/17 21:00 04/28/17 21:00 04/28/17 22:00 04/28/17 21:00 - Medications Medications: Current Medications Acetaminophen (Tylenol 325mg Tab) 650 mg PO Q4 PRN PRN Reason: Pain, Mild (1-3) Enoxaparin Sodium (Lovenox) 40 mg SC DAILY [facility] PRN Reason: Protocol Last Admin: 04/28/17 08:17 Dose: 40 mg Guaifenesin/Dextromethorphan (Robitussin Dm) 5 ml PO Q6 PRN PRN Reason: Cough Last Admin: 04/28/17 17:07 Dose: 5 ml Piperacillin Sod/Tazobactam (Sod 3.375 gm/ Sodium Chloride) 100 mls @ 100 mls/ hr IVPB Q8 [facility] PRN Reason: Protocol Last Admin: 04/28/17 16:36 Dose: 100 mls/hr Ibuprofen (Motrin Tab) 400 mg PO Q8 PRN PRN Reason: Headache Last Admin: 04/28/17 08:16 Dose: 400 mg Insulin Detemir (Levemir) 60 units SC HS [facility] Last Admin: 04/28/17 21:30 Dose: 60 units Insulin Human Lispro (Humalog) 0 units SC ACHS [facility] PRN Reason: Protocol Last Admin: 04/28/17 21:28 Dose: Not Given Insulin Human Lispro (Humalog) 14 units SC AC [facility] Last Admin: 04/28/17 17:07 Dose: 14 units Oxycodone/Acetaminophen (Percocet 5/325 Mg Tab) 1 tab PO Q6 PRN PRN Reason: Pain, Mild (1-3) Stop: 04/30/17 09:26 Oxycodone/Acetaminophen (Percocet 5/325 Mg Tab) 2 tab PO Q6 PRN PRN Reason: Pain, severe (8-10) Stop: 04/30/17 09:26 Ramipril (Altace) 10 mg PO DAILY [facility] Last Admin: 04/28/17 08:15 Dose: 10 mg - Labs Labs: 04/28/17 05:35 04/28/17 05:35 PT 12.4 Seconds (9.8-13.1) 04/22/17 13:45 INR 1.1 (0.9-1.2) 04/22/17 13:45 APTT 27.4 Seconds (25.6-37.1) 04/22/17 13:45 - Constitutional Appears: Well, No Acute Distress - Head Exam Head Exam: ATRAUMATIC - Respiratory Exam Respiratory Exam: Clear to Ausculation Bilateral, NORMAL BREATHING PATTERN - Cardiovascular Exam Cardiovascular Exam: REGULAR RHYTHM, +S1, +S2 - GI/Abdominal Exam GI & Abdominal Exam: Soft, Normal Bowel Sounds - Extremities Exam Additional comments: Right foot dressing in place - Neurological Exam Neurological Exam: Alert, Oriented x3 - Psychiatric Exam Psychiatric exam: Normal Affect, Normal Mood - Skin Skin Exam: Normal Color, Warm Assessment and Plan (1) Cellulitis in diabetic foot Status: Acute (2) Osteomyelitis Status: Acute (3) PVD (peripheral vascular disease) Status: Acute (4) Insulin dependent diabetes mellitus Status: Acute - Assessment and Plan (Free Text) Assessment: 67 year old male with OM, s/p right 5th ray amputation POD #1 Plan: Continue IV abx Await OR cultures will need 6 weeks IV Rx per ID cough syrup prn DVT/GI prophylaxis
[2017-04-29] MEDS: Piperacillin/Tazobact 3.375 GM in Sodium Chloride 0.9% 100 ML IVPB SCH ×2 (00:51→09:30)
--- NOTE | 2017-04-29 07:19 | OP ---
PROCEDURE DATE: 04/27/2017 PREOPERATIVE DIAGNOSES: 1. Right fifth digit gangrene, osteomyelitis and abscess. 2. First metatarsophalangeal joint, rule out osteomyelitis. POSTOPERATIVE DIAGNOSES: 1. Right fifth digit gangrene, osteomyelitis and abscess. 2. First metatarsophalangeal joint, rule out osteomyelitis. PROCEDURES: 1. Right partial fifth ray resection with removal of all nonviable soft tissue and bone. 2. Right first ray bone biopsy. SURGEON: Jurgen Olmedo DPM ASSISTANTS: Sim Anderson PGY1 and James Tipton PGY1 TYPE OF ANESTHESIA: IV sedation with local 10 mL of 1:1 mixture of 1% lidocaine plain and 0.5% Marcaine plain. ANESTHESIA ADMINISTERED BY: Linus Davidson MD INDICATIONS: The patient is a 67-year-old male with the above diagnoses. The patient has exhausted conservative treatment at this time and now requests surgical intervention. The patient signed the consent after careful explanation of the risks, benefits, complications, and alternatives of procedure and wishes to proceed. No guarantees were given nor implied. PREPARATION: The patient was brought into the operating room and was placed on the operating room table in a supine position. Time-out was performed for identification of the correct patient and procedure. After the induction of IV sedation, the patient received a total of 16 mL of 1:1 mixture of 1% lidocaine plain and 0.5% Marcaine plain in an ankle block fashion. Once local anesthesia was achieved, the right foot was then prepped and draped in normal sterile manner and the procedure began. DESCRIPTION OF PROCEDURE: PROCEDURE #1: Right partial fifth ray resection with removal of nonviable soft tissue and bone. Attention was directed to the right fifth digit where it was noted to have demarcated, dusky, ischemic changes extending proximally into the base of the digit. The skin overlying the dorsum of the fifth digit was everted leading a mixed red granular and black necrotic base. Utilizing a #15 blade, a widely based teardrop incision was made from the distal aspect of the fifth metatarsal and then circumferentially at the level of the fifth metatarsophalangeal joint. The incision was extended down through subcutaneous layers to the level of bone using a clamp to stabilize the fifth digit. The fifth digit was then circulated from the foot at the level of the fifth metatarsophalangeal joint. The specimen was then passed from the operative field to be sent to pathology. Next, starting attention to the fifth metatarsal head, all periosteal tissue was carefully resected using Huerta elevator. Then using a sagittal saw, the fifth metatarsal head was resected from dorsal distal medial to plantar proximal lateral. Passing the operative field to be sent to pathology. Using , skin margins were debulked to allow for adequate reapproximation of wound edges. At this time, a deep wound culture was taken at the amputation site, passed off the operative field to be sent to pathology. The surgical site was then irrigated with copious amounts of sterile saline. The wound was packed with half-inch iodoform packing and retention suture was placed at the midpoint of the amputation site using 0 Prolene to closely reapproximate wound edges and to keep the packing in place. The wound was then dressed with Xeroform. PROCEDURE #2: Right first metatarsophalangeal joint bone biopsy. Attention was directed to the dorsal aspect of the first MPJ utilizing a 15 blade and approximately 3 cm in length linear incision was created. The incision was carried down through fiber scar tissue down to bone does exposing the base of the proximal phalanx. Next, utilizing sagittal saw, the base of the proximal phalanx was resected and passed from the operative field to be sent to pathology. A rongeur was then used to smooth down off the bony prominences. The scar tissue overlying the proximal phalanx was then debulked to create a suitable flat for closure. The surgical site was then irrigated with copious amounts of saline with the use of 3-0 Prolene. Skin edges were reapproximated in a simple interrupted suture technique. Xeroform was applied on top of the incision and the right foot was dressed with sterile gauze, Karina, and Kerlix. POSTOPERATIVE CONDITION: The patient tolerated the anesthesia and procedure well and was escorted to the recovery room with vital signs stable and neurovascular status intact to the right foot. The patient is to be nonweightbearing to the right lower extremity for the first 24 hours after surgery, tomorrow the . Sim Anderson DPM Jurgen Olmedo DPM [facility] # [id number]
--- NOTE | 2017-04-29 07:43 | CP.PCM.PN ---
Subjective - Date & Time of Evaluation Date of Evaluation: 04/29/17 Time of Evaluation: 07:42 - Subjective Subjective: Podiatry Progress Note - Dr. Olmedo 67 year old male patient seen and evaluated at bedside for right foot infection and 5th digit ischemia, POD#2 right partial 5th ray resection and hallux biopsy. Patient hemodynamically stable and NAD. No acute events. No pain to right foot. Patient states he worked with physical therapy yesterday and was able to ambulate with the assistance of his cane, without any issues. Patient aware he is to follow up with Dr. Olmedo in office/wound care upon discharge. Denies N/V/F/D/C/SOB/calf pain. Objective - Vital Signs/Intake and Output Vital Signs (last 24 hours): Temp Pulse Resp BP Pulse Ox 98.3 F 72 14 157/78 H 95 04/29/17 05:00 04/29/17 05:00 04/29/17 05:00 04/29/17 05:00 04/29/17 05:00 - Medications Medications: Current Medications Acetaminophen (Tylenol 325mg Tab) 650 mg PO Q4 PRN PRN Reason: Pain, Mild (1-3) Enoxaparin Sodium (Lovenox) 40 mg SC DAILY [facility] PRN Reason: Protocol Last Admin: 04/28/17 08:17 Dose: 40 mg Guaifenesin/Dextromethorphan (Robitussin Dm) 5 ml PO Q6 PRN PRN Reason: Cough Last Admin: 04/28/17 23:06 Dose: 5 ml Piperacillin Sod/Tazobactam (Sod 3.375 gm/ Sodium Chloride) 100 mls @ 100 mls/ hr IVPB Q8 [facility] PRN Reason: Protocol Last Admin: 04/29/17 00:51 Dose: 100 mls/hr Ibuprofen (Motrin Tab) 400 mg PO Q8 PRN PRN Reason: Headache Last Admin: 04/28/17 23:06 Dose: 400 mg Insulin Detemir (Levemir) 60 units SC HS [facility] Last Admin: 04/28/17 21:30 Dose: 60 units Insulin Human Lispro (Humalog) 0 units SC ACHS [facility] PRN Reason: Protocol Last Admin: 04/28/17 21:28 Dose: Not Given Insulin Human Lispro (Humalog) 14 units SC AC [facility] Last Admin: 04/28/17 17:07 Dose: 14 units Oxycodone/Acetaminophen (Percocet 5/325 Mg Tab) 1 tab PO Q6 PRN PRN Reason: Pain, Mild (1-3) Stop: 04/30/17 09:26 Oxycodone/Acetaminophen (Percocet 5/325 Mg Tab) 2 tab PO Q6 PRN PRN Reason: Pain, severe (8-10) Stop: 04/30/17 09:26 Ramipril (Altace) 10 mg PO DAILY [facility] Last Admin: 04/28/17 08:15 Dose: 10 mg - Labs Labs: 04/28/17 05:35 04/28/17 05:35 PT 12.4 Seconds (9.8-13.1) 04/22/17 13:45 INR 1.1 (0.9-1.2) 04/22/17 13:45 APTT 27.4 Seconds (25.6-37.1) 04/22/17 13:45 - Constitutional Appears: Well, Non-toxic, No Acute Distress - Extremities Exam Additional comments: RLE focused physical exam Dressing to right lower extremity dry/intact, moderate strikethrough with sanguinous drainage VASC: DP and PT pulses palpable 2/4. CFT <3 seconds to digits 1-4. Temperature gradient warm to warm. Nonpitting edema noted to right foot. NEURO: Gross sensation diminished. DERM: Ulceration noted to plantar aspect of 4th interspace measuring approximately 0.5 x 0.5 x 3cm - ulcer extends into subcutaneous tissue, noted to have a 100% granular base and erythema periwound; no serosanguinous drainage able to be expressed from plantar ulcer; (-)probe to bone; no fluctuance. Surgical wound s/p partial 5th ray amputation with 1/2" iodoform packing in place; surrounding wound bed is 100% granular extending down to bone; wound is noted to have healthy skin margins and viable subcutaneous tissue; prolene retention suture intact and no separation noted; no purulence able to be expressed. Surgical incision noted to dorsum of 1st MPJ with sutures intact and no wound dehiscence noted; minimal erythema periwound. ORTHO: No pain on palpation 5th digit. No pain on palpation dorsal 1st MPJ. Muscle strength 5/5 for all dorsiflexors, plantarflexors, inverters, and everters. - Neurological Exam Neurological Exam: Alert, Awake, Oriented x3 - Psychiatric Exam Psychiatric exam: Normal Affect, Normal Mood Assessment and Plan - Assessment and Plan (Free Text) Assessment: 67 year old male with 1) right foot plantar ulceration secondary to trauma 2) 5th digit ischemia vs. gangrene 2 days s/p Right partial 5th ray resection with removal of nonviable soft tissue and bone and 1st mpj bone biopsy Plan: Patient seen and evaluated Discussed with attending, Dr. Olmedo Afebrile Right foot XR (04/22/17): Lucency at the base of the proximal phalanx 5th digit and also at the head of the 5th metatarsal is suspicious for OM Right foot MRI (04/22/17): Osteomyelitis at the proximal phalanx great toe and at the distal segment of the 1st metatarsal bone with phlegmon or abscess at 1st MPJ likely. Early OM not completely excluded at distal segment 5th metatarsal bone and proximal phalanx of digit. Diffuse cellulitis throughout forefoot evident Bilateral arterial duplex (04/22/17) -No significant stenosis identified at the bilateral lower extremity major arteries although low velocity but triphasic waveform is identified at the left anterior tibial a. -Above the bilateral DP arteries appear widely patent as well as the posterior tibia arteries Right foot XR (04/27/17): 5th metatarsal amputation Right foot plantar ulcer WCx (04/22/17) - staph aureus Intra op specimens removed: -5th digit path: pending -5th met clean margin: pending -Deep WCx: (prelim) no growth -1st MPJ path: pending Continue abx per ID - d/c Vancomycin c/s +MSSA, continue Zosyn 3.375g IV -Podiatry recommending 6 weeks of IVabx via PICC, f/u ID recs PWB to right heel only in surgical shoe with the assistance of cane Continue PT Patient to wear multipodus boot at all times in bed Right foot cleansed with sterile saline, packing removed and replaced, and dressed with xeroform, DSD Patient to follow up with Dr. Olmedo as outpatient within 1 week of discharge ; keep dressing clean/dry/intact until POV#1 Stable for d/c per podiatry Podiatry will continue to follow while in house
[2017-04-29] MEDS: Insulin Lispro (humaLOG) 100 Units/ml Inj SC SCH ×4 (09:29→12:56)
[2017-04-29] MEDS: Enoxaparin 40 mg Syringe SC SCH (09:30)
[2017-04-29] MEDS: guaiFENesin DM 100 mg-10 mg/5 ml UD PO PRN (09:31)
[2017-04-29] MEDS ORDERED: Promethazine DM 6.25 mg-15 mg/5 ml Syrup PO PRN (10:09)
--- NOTE | 2017-04-29 12:16 | CP.PCM.PN ---
Subjective - Date & Time of Evaluation Date of Evaluation: 04/29/17 Time of Evaluation: 08:00 - Subjective Subjective: await cultures iv rx in progress Objective - Vital Signs/Intake and Output Vital Signs (last 24 hours): Temp Pulse Resp BP Pulse Ox 98.1 F 71 20 144/82 96 04/29/17 08:03 04/29/17 08:03 04/29/17 08:03 04/29/17 09:28 04/29/17 08:03 - Medications Medications: Current Medications Acetaminophen (Tylenol 325mg Tab) 650 mg PO Q4 PRN PRN Reason: Pain, Mild (1-3) Enoxaparin Sodium (Lovenox) 40 mg SC DAILY [facility] PRN Reason: Protocol Last Admin: 04/29/17 09:30 Dose: 40 mg Guaifenesin/Dextromethorphan (Robitussin Dm) 5 ml PO Q6 PRN PRN Reason: Cough Last Admin: 04/29/17 09:31 Dose: 5 ml Piperacillin Sod/Tazobactam (Sod 3.375 gm/ Sodium Chloride) 100 mls @ 100 mls/ hr IVPB Q8 [facility] PRN Reason: Protocol Last Admin: 04/29/17 09:30 Dose: 100 mls/hr Ibuprofen (Motrin Tab) 400 mg PO Q8 PRN PRN Reason: Headache Last Admin: 04/28/17 23:06 Dose: 400 mg Insulin Detemir (Levemir) 60 units SC HS [facility] Last Admin: 04/28/17 21:30 Dose: 60 units Insulin Human Lispro (Humalog) 0 units SC ACHS [facility] PRN Reason: Protocol Last Admin: 04/29/17 09:29 Dose: Not Given Insulin Human Lispro (Humalog) 14 units SC AC [facility] Last Admin: 04/29/17 09:30 Dose: 14 units Losartan Potassium (Cozaar) 50 mg PO DAILY [facility] Oxycodone/Acetaminophen (Percocet 5/325 Mg Tab) 1 tab PO Q6 PRN PRN Reason: Pain, Mild (1-3) Stop: 04/30/17 09:26 Promethazine HCl/Dextromethorphan (Phenergan Dm Syrup) 5 ml PO Q6 PRN PRN Reason: Cough - Labs Labs: 04/28/17 05:35 04/28/17 05:35 PT 12.4 Seconds (9.8-13.1) 04/22/17 13:45 INR 1.1 (0.9-1.2) 04/22/17 13:45 APTT 27.4 Seconds (25.6-37.1) 04/22/17 13:45 - Head Exam Head Exam: NORMOCEPHALIC - Eye Exam Pupil Exam: absent: NORMAL ACCOMODATION - ENT Exam ENT Exam: Mucous Membranes Dry - Neck Exam Neck Exam: absent: Lymphadenopathy - Respiratory Exam Respiratory Exam: Decreased Breath Sounds - Cardiovascular Exam Cardiovascular Exam: REGULAR RHYTHM - GI/Abdominal Exam GI & Abdominal Exam: Distended, Soft - Rectal Exam Rectal Exam: Deferred - Exam Exam: NORMAL INSPECTION - Extremities Exam Extremities Exam: absent: Pedal Edema - Back Exam Back Exam: absent: CVA tenderness (L), CVA tenderness (R) - Neurological Exam Neurological Exam: Alert, Awake, Oriented x3 - Psychiatric Exam Psychiatric exam: Normal Mood - Skin Skin Exam: Dry, Intact Assessment and Plan (1) Osteomyelitis Status: Acute (2) PVD (peripheral vascular disease) Status: Acute (3) Cellulitis in diabetic foot Status: Acute - Assessment and Plan (Free Text) Assessment: 67 year old male with 1) right foot plantar ulceration secondary to trauma 2) 5th digit ischemia vs. gangrene 2 days s/p Right partial 5th ray resection with removal of nonviable soft tissue and bone and 1st mpj bone await cultures
[2017-04-29] MEDS ORDERED: ceFAZolin IV 2 gm in Dextrose 2 GM/50 ML BAG IVPB SCH (13:14)
--- NOTE | 2017-04-29 15:09 | CP.PCM.PCO ---
Assessment/Plan - Assessment/Plan Assessment (Free Text): Pt stable, seen and cleared for d/c by podiatry and ID. Per Dr. Dhaliwal, Ancef 2g q 8 hrs x 6 weeks. Rx given to CM. Home infusion arranged by CM. Pt seen and cleared for d/c home by Dr. Bolton
[2017-04-29 15:43] VITALS: BP 153/87; PULSE 73; RESP 18; TEMP 98.7; O2SAT 95
--- NOTE | 2017-04-29 18:28 | PN ---
ENDOCRINOLOGY FOLLOWUP NOTE DATE: LOCATION: In room 662 SUBJECTIVE: This is a 67-year-old male with recent uncontrolled type 2 insulin-requiring diabetes, now receiving ongoing IV antibiotic management and local debridement for his left foot cellulitis with underlying neuropathic diabetic ulceration as noted. His glucose levels are fluctuating, but improved and the latest glucose levels have ranged from 184 to 264 mg/dL. It was 207 at bedtime last night. The latest chemistry showed a BUN of 10, sodium 140, potassium 4.2, chloride 96, CO2 of 33, glucose 188, and creatinine 0.8. So, at this time, we will continue the same basal and bolus insulin regimen to allow for dose equilibration and keep him on the Humalog given as 14 units subcutaneously t.i.d. before meals as ordered. We will continue also the basal insulin given as Levemir at units subcutaneously at bedtime daily as given. We will titrate incremental as indicated to optimize metabolic control. We will follow. Nanette Blake MD
--- NOTE | 2017-04-29 23:40 | CP.PCM.DIS ---
Provider - Provider Date of Admission: 04/22/17 13:21 Attending physician: Natan Carbajal MD Time Spent in preparation of Discharge (in minutes): 30 Diagnosis - Discharge Diagnosis (1) Cellulitis in diabetic foot Status: Acute Priority: High (2) Osteomyelitis Status: Acute Priority: High (3) PVD (peripheral vascular disease) Status: Acute (4) Insulin dependent diabetes mellitus Status: Acute Priority: Medium Hospital Course - Lab Results Lab Results: Micro Results 04/27/17 11:28 Foot - Right Gram Stain - Final 04/27/17 11:28 Foot - Right Wound Culture - Preliminary No growth. 04/22/17 13:30 Blood Blood Culture - Final NO GROWTH AFTER 5 DAYS 04/22/17 13:30 Blood Gram Stain - Final TEST NOT PERFORMED 04/22/17 13:45 Blood Blood Culture - Final NO GROWTH AFTER 5 DAYS 04/22/17 13:45 Blood Gram Stain - Final TEST NOT PERFORMED 04/22/17 14:25 Foot - Left Gram Stain - Final 04/22/17 14:25 Foot - Left Wound Culture - Final Staphylococcus Aureus Most Recent Lab Values WBC 7.1 K/uL (4.8-10.8) 04/28/17 05:35 RBC 4.04 Mil/uL (4.40-5.90) L 04/28/17 05:35 Hgb 13.9 g/dL (12.0-18.0) 04/28/17 05:35 Hct 40.3 % (35.0-51.0) 04/28/17 05:35 MCV 99.8 fl (80.0-94.0) H 04/28/17 05:35 MCH 34.5 pg (27.0-31.0) H 04/28/17 05:35 MCHC 34.5 g/dL (33.0-37.0) 04/28/17 05:35 RDW 13.1 % (11.5-14.5) 04/28/17 05:35 Plt Count 223 K/uL (130-400) 04/28/17 05:35 MPV 8.9 fl (7.2-11.7) 04/28/17 05:35 Neut % (Auto) 69.4 % (50.0-75.0) 04/28/17 05:35 Lymph % (Auto) 13.8 % (20.0-40.0) L 04/28/17 05:35 Cameron % (Auto) 13.8 % (0.0-10.0) H 04/28/17 05:35 Eos % (Auto) 2.0 % (0.0-4.0) 04/28/17 05:35 Baso % (Auto) 1.0 % (0.0-2.0) 04/28/17 05:35 Neut # (Auto) 4.9 K/uL (1.8-7.0) 04/28/17 05:35 Lymph # (Auto) 1.0 K/uL (1.0-4.3) 04/28/17 05:35 Cameron # (Auto) 1.0 K/uL (0.0-0.8) H 04/28/17 05:35 Eos # (Auto) 0.1 K/uL (0.0-0.7) 04/28/17 05:35 Baso # (Auto) 0.1 K/uL (0.0-0.2) 04/28/17 05:35 Neutrophils % (Manual) 86 % (42-75) H 04/22/17 13:45 Lymphocytes % (Manual) 4 % (20-50) L 04/22/17 13:45 Monocytes % (Manual) 10 % (0-10) 04/22/17 13:45 Platelet Estimate Normal (NORMAL) 04/22/17 13:45 Macrocytosis (manual) Slight 04/22/17 13:45 ESR 87 mm/hr (0-20) H 04/22/17 13:45 PT 12.4 Seconds (9.8-13.1) 04/22/17 13:45 INR 1.1 (0.9-1.2) 04/22/17 13:45 APTT 27.4 Seconds (25.6-37.1) 04/22/17 13:45 pO2 13 mm/Hg (30-55) L 04/22/17 14:00 VBG pH 7.37 (7.32-7.43) 04/22/17 14:00 VBG pCO2 52 mmHg (40-60) 04/22/17 14:00 VBG HCO3 25.5 mmol/L 04/22/17 14:00 VBG Total CO2 31.7 mmol/L (22-28) H 04/22/17 14:00 VBG O2 Sat (Calc) 20.1 % (40-65) L 04/22/17 14:00 VBG Base Excess 3.6 mmol/L (0.0-2.0) H 04/22/17 14:00 VBG Potassium 3.3 mmol/L (3.6-5.2) L 04/22/17 14:00 Sodium 134.0 mmol/L (132-148) 04/22/17 14:00 Chloride 99.0 mmol/L (98-107) 04/22/17 14:00 Glucose 161 mg/dL (75-110) H 04/22/17 14:00 Lactate 1.6 mmol/L (0.7-2.1) 04/22/17 14:00 FiO2 21.0 % 04/22/17 14:00 Sodium 139 mmol/l (132-148) 04/28/17 05:35 Potassium 3.9 MMOL/L (3.6-5.0) 04/28/17 05:35 Chloride 96 mmol/L (98-107) L 04/28/17 05:35 Carbon Dioxide 31 mmol/L (22-30) H 04/28/17 05:35 Anion Gap 16 (10-20) 04/28/17 05:35 BUN 11 mg/dl (9-20) 04/28/17 05:35 Creatinine 0.8 mg/dl (0.8-1.5) 04/28/17 05:35 Est GFR ( Amer) > 60 04/28/17 05:35 Est GFR (Non-Af Amer) > 60 04/28/17 05:35 POC Glucose (mg/dL) 203 mg/dL (65-110) H 04/29/17 15:47 Random Glucose 183 mg/dL (75-110) H 04/28/17 05:35 Hemoglobin A1c 8.0 % (4.2-6.5) H 04/23/17 05:55 Calcium 8.5 mg/dL (8.4-10.2) 04/28/17 05:35 Magnesium 1.8 MG/DL (1.6-2.3) 04/22/17 17:55 Total Bilirubin 0.8 mg/dl (0.2-1.3) 04/28/17 05:35 AST 27 U/L (17-59) 04/28/17 05:35 ALT 54 U/L (21-72) 04/28/17 05:35 Alkaline Phosphatase 53 U/L (38-126) 04/28/17 05:35 Total Protein 6.8 G/DL (6.3-8.2) 04/28/17 05:35 Albumin 3.1 g/dL (3.5-5.0) L 04/28/17 05:35 Globulin 3.6 gm/dL (2.2-3.9) 04/28/17 05:35 Albumin/Globulin Ratio 0.9 (1.0-2.1) L 04/28/17 05:35 Triglycerides 66 mg/DL (0-149) 04/23/17 05:55 Cholesterol 160 mg/dL (0-199) 04/23/17 05:55 LDL Cholesterol Direct 116 mg/dL (0-129) 04/23/17 05:55 HDL Cholesterol 24 MG/DL (30-70) L 04/23/17 05:55 TSH 3rd Generation 1.05 mIU/ML (0.46-4.68) 04/23/17 05:55 FSH 3rd Generation < 0.7 mIU/mL 04/23/17 05:55 Luteinizing Hormone < 0.2 mIU/ml 04/23/17 05:55 Prolactin 13.5 ng/mL (3.7-17.9) 04/23/17 05:55 Testosterone (LC-MS) 496 ng/dL (250-1100) 04/23/17 05:55 Free Testosterone 158.7 pg/mL (35.0-155.0) H 04/23/17 05:55 Venous Blood Potassium 3.3 mmol/L (3.6-5.2) L 04/22/17 14:00 Urine Color Yellow (YELLOW) 04/22/17 14:15 Urine Clarity Slighty-cloudy (Clear) 04/22/17 14:15 Urine pH 6.0 (5.0-8.0) 04/22/17 14:15 Ur Specific [place] 1.025 (1.003-1.030) 04/22/17 14:15 Urine Protein 30 mg/dL (NEGATIVE) 04/22/17 14:15 Urine Glucose (UA) 150 mg/dL (Normal) 04/22/17 14:15 Urine Ketones 20 mg/dL (NEGATIVE) 04/22/17 14:15 Urine Blood Small (NEGATIVE) 04/22/17 14:15 Urine Nitrate Negative (NEGATIVE) 04/22/17 14:15 Urine Bilirubin Negative (NEGATIVE) 04/22/17 14:15 Urine Urobilinogen 0.2-1.0 mg/dL (0.2-1.0) 04/22/17 14:15 Ur Leukocyte Esterase Neg Sugar/uL (Negative) 04/22/17 14:15 Urine RBC (Auto) 8 /hpf (0-3) H 04/22/17 14:15 Urine Microscopic WBC 2 /hpf (0-5) 04/22/17 14:15 Ur Squamous Epith Cells 1 /hpf (0-5) 04/22/17 14:15 Vancomycin Trough 6.7 ug/mL (5.0-10.0) 04/24/17 00:28 - Hospital Course Hospital Course: 67 yeal old male with a pmhx of HTN, DM and right foot surgery who was admitted for right foot wound and osteomyelitis of 5th digit. The patient was treated with IV antibiotics. the patient also had the 5th ray resected and bx were taken by podiatry. The patient tolerated the surgery well. The patient responded well to antibiotics treatment. A picc line was placed and the patient was discharged home on home IV infusion. Discharge Exam - Head Exam Head Exam: ATRAUMATIC, NORMOCEPHALIC - Respiratory Exam Respiratory Exam: Clear to PA & Lateral, NORMAL BREATHING PATTERN - Cardiovascular Exam Cardiovascular Exam: REGULAR RHYTHM, +S1, +S2 - GI/Abdominal Exam GI & Abdominal Exam: Normal Bowel Sounds, Soft - Extremities Exam Additional comments: Right foot dressing intact - Neurological Exam Neurological exam: Alert, Oriented x3 - Skin Skin Exam: Normal Color, Warm Discharge Plan - Discharge Medications Prescriptions: ceFAZolin 1 gm FROZEN Premix [Ancef] 2 gm IVPB Q8 42 Days #126 ml Losartan [Cozaar] 50 mg PO DAILY #30 tab Ibuprofen [Motrin] 600 mg PO Q6 PRN #30 tab PRN Reason: Pain, Moderate (4-7) - Follow Up Plan Condition: STABLE Disposition: HOME/ ROUTINE Instructions: Amputation of the Foot or Toe, Osteomyelitis (DC), Cellulitis ( Skin Infection), Adult (DC), Peripherally-Inserted Central Catheter (DC) Additional Instructions: kourtney infusion [phone] Ancef 2gm intravenous every 8 hours for 6 weeks follow up with podiatry and Dr. Carbajal in 1 week. Referrals: Jurgen Oneil DPM [Staff Provider] - Rosalino Dhaliwal MD [Staff Provider] - Natan Carbajal MD [Staff Provider] -
== END 2017-04-29 16:45 | disposition home health service (06) | DRG 240 ==
LOC: H.ER 12:06 → H.ERHOLD 13:21 → H.MEDSURG1 15:40
PROVIDERS: ADMIT Internal Medicine; ATTEND Internal Medicine
PROC: 3E0234Z Introduction of Serum, Toxoid and Vaccine into Muscle, Percutaneous Approach (ICD-10-PCS; 2017-04-22)
PROC: 0SBM0ZX Excision of Right Metatarsal-Phalangeal Joint, Open Approach, Diagnostic (ICD-10-PCS; 2017-04-27)
PROC: 02HV33Z Insertion of Infusion Device into Superior Vena Cava, Percutaneous Approach (ICD-10-PCS; 2017-04-27)
PROC: B518ZZA Fluoroscopy of Superior Vena Cava, Guidance (ICD-10-PCS; 2017-04-27)
PROC: 3E04329 Introduction of Other Anti-infective into Central Vein, Percutaneous Approach (ICD-10-PCS; 2017-04-27)
PROC: 0Y6M0ZF Detachment at Right Foot, Partial 5th Ray, Open Approach (ICD-10-PCS; principal; 2017-04-27 07:45)
DX: E11.52 Type 2 diabetes mellitus with diabetic peripheral angiopathy with gangrene (principal); E11.42 Type 2 diabetes mellitus with diabetic polyneuropathy; M86.171 Other acute osteomyelitis, right ankle and foot; I96 Gangrene, not elsewhere classified; E11.621 Type 2 diabetes mellitus with foot ulcer; L03.115 Cellulitis of right lower limb; L03.116 Cellulitis of left lower limb; E11.65 Type 2 diabetes mellitus with hyperglycemia; E11.69 Type 2 diabetes mellitus with other specified complication; B95.61 Methicillin susceptible Staphylococcus aureus infection as the cause of diseases classified elsewhere; L97.519 Non-pressure chronic ulcer of other part of right foot with unspecified severity; I10 Essential (primary) hypertension; Z23 Encounter for immunization; Z79.4 Long term (current) use of insulin; Z89.421 Acquired absence of other right toe(s)

== ENCOUNTER 2017-08-24 14:27 | Inpatient (IN) | payer MEDICARE, OTHER ==
[2017-08-24 14:27] VITALS: BMI 25.7
--- NOTE | 2017-08-24 14:59 | ED PDOC ---
Lower Extremity Pain/Injury Time Seen by Provider: 08/24/17 14:37 Chief Complaint (Nursing): Lower Extremity Problem/Injury Chief Complaint (Provider): Right foot swelling History Per: Patient History/Exam Limitations: no limitations Onset/Duration Of Symptoms: Days (x6) Current Symptoms Are (Timing): Still Present Additional Complaint(s): 67 year old male presents to the ED complaining of right foot swelling. Patient noticed redness and swelling to the right foot since wednesday of last week which is worsening since onset. 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 Patient has a history of diabetic wound to the foot that is being followed by Dr. Olmedo and had a toe amputation in April. Patient is also reporting right groin swelling that started at the same time as these symptoms. He is not sure if swelling was from the trauma he had 3 weeks ago when a palette fell on his right groin or due to an infection. When the palette fell, he had large swelling at the site which resolved. Since the right foot got worse, however, the groin swelling came back. He reports subjective chills and fever since wednesday. PMD: Dr. Somers Past Medical History Reviewed: Historical Data, Nursing Documentation, Vital Signs Vital Signs: Last Vital Signs Temp 97.6 F 08/24/17 14:31 Pulse 76 08/24/17 14:31 Resp 16 08/24/17 14:31 BP 131/80 08/24/17 14:31 Pulse Ox 97 08/24/17 14:31 - Medical History PMH: Diabetes - Surgical History Surgical History: Tonsillectomy Other surgeries: Hernia repair and foot surgery - Family History Family History: States: Unknown Family Hx - Home Medications Home Medications: Ambulatory Orders Medication Instructions Recorded Insulin Detemir [Levemir] 60 unit SC HS 04/22/17 Insulin Lispro [Humalog Kwikpen 20 unit SC TIDPC 04/22/17 U-200] Testosterone Cypionate [Testone 1 ml IM Q14D 04/22/17 Cik] Cholecalciferol (Vitamin D3) 400 unit PO DAILY 08/24/17 [Vitamin D-400] Lactobacillus Combination No.8 1 cap PO DAILY 08/24/17 [Adult Probiotic] Multivitamin [Multi-Vitamin Daily] 1 tab PO DAILY 08/24/17 Ramipril [Altace] 10 mg PO DAILY 08/24/17 - Allergies Allergies/Adverse Reactions: Allergies Allergy/AdvReac Type Severity Reaction Status Date / Time cefazolin Allergy RASH Verified 08/24/17 17:15 Review of Systems ROS Statement: Except As Marked, All Systems Reviewed And Found Negative (as per HPI) Constitutional: Positive for: Fever, Chills Musculoskeletal: Positive for: Other (right foot swelling and redness and right groin swelling) Physical Exam - Reviewed Nursing Documentation Reviewed: Yes Vital Signs Reviewed: Yes - Physical Exam Appears: Positive for: Well, No Acute Distress Head Exam: Positive for: ATRAUMATIC, NORMOCEPHALIC Skin: Positive for: Warm, Dry Eye Exam: Positive for: EOMI, PERRL ENT: Positive for: Pharynx Is (clear) Neck: Positive for: Painless ROM, Supple Cardiovascular/Chest: Positive for: Regular Rate, Rhythm. Negative for: Murmur Respiratory: Positive for: Normal Breath Sounds. Negative for: Respiratory Distress Gastrointestinal/Abdominal: Positive for: Soft. Negative for: Tenderness Back: Positive for: Normal Inspection. Negative for: Decreased ROM Extremity: Positive for: Normal ROM, Other (see lower extremity exam below) Lymphatic: Negative for: Adenopathy Neurologic/Psych: Positive for: Alert. Negative for: Motor/Sensory Deficits Comments: RIGHT GROIN: below inguinal part - 3cm x 2cm round, soft, nontender, palpable mass with normal overlying skin with questionable fluctuance. RIGHT FOOT: post second toe amputation with large ulceration to the plantar forefoot involving the 4th and 5th toes with surrounding erythema and edema and yellow eschar with purulent discharge. - Laboratory Results Result Diagrams: 08/25/17 11:01 08/25/17 10:12 - ECG O2 Sat by Pulse Oximetry: 97 (RA) Pulse Ox Interpretation: Normal Medical Decision Making Medical Decision Making: Initial Impression: right foot diabetic ulcer and infection, right groin mass vs lymphadenopathy vs hematoma Initial Plan: Type and screen Venous blood gas ECG CMP Magnesium Phsophrous CBC Partial thromplastin Prothrombin time Chest X-ray Blood culture Wound culture Foot X-ray Lower extremities US Soft tissue US 16:00 Discussed with podiatry resident and Dr. Carbajal for admission into the hospital. 16:[address] Dhaliwal, infectious diseases, who recommends IV zosyn for antibiotics. Scribe Attestation: Documented by Ruben Garrett acting as a scribe for Nereida Laird MD. Provider Scribe Attestation: All medical record entries made by the Scribe were at my direction and personally dictated by me. I have reviewed the chart and agree that the record accurately reflects my personal performance of the history, physical exam, medical decision making, and the department course for this patient. I have also personally directed, reviewed, and agree with the discharge instructions and disposition. Disposition - Clinical Impression Clinical Impression: Cellulitis in diabetic foot, Diabetes mellitus with hyperglycemia, PVD ( peripheral vascular disease) Counseled Patient/Family Regarding: Studies Performed, Diagnosis - Disposition Disposition Time: 16:00 Condition: FAIR - Pt Status Changed To: Hospital Disposition Of: Inpatient - Admit Certification Admit to Inpatient:: After my assessment, the patient will require hospitalization for at least two midnights. This is because of the severity of symptoms shown, intensity of services needed, and/or the medical risk in this patient being treated as an outpatient. - POA Present On Arrival: Poor Glycemic Control
[2017-08-24 15:52] LABS: VENOUS BLOOD GAS BASE EXCESS 0.2 mmol/L (0.0-2.0); VENOUS BLOOD GAS PCO2 51 mmHg (40-60); VENOUS BLOOD GAS PO2 13 mm/Hg (30-55); VENOUS BLOOD PH 7.33 (7.32-7.43)
[2017-08-24 16:04] LABS: BASO # 0.1 K/uL (0.0-0.2); EOS # 0.1 K/uL (0.0-0.7); EOS % 1.4 % (0.0-4.0); HEMOGLOBIN 14.4 g/dL (12.0-18.0); LYMPH % 12.2 % (20.0-40.0); MEAN CELL VOLUME 100.1 fl (80.0-94.0); MEAN CORPUSCULAR HEMOGLOBIN 33.2 pg (27.0-31.0); MEAN CORPUSCULAR HGB CONC 33.2 g/dL (33.0-37.0); MEAN PLATELET VOLUME 8.9 fl (7.2-11.7); MONO # 1.1 K/uL (0.0-0.8); MONO % 13.3 % (0.0-10.0); NEUT # 5.9 K/uL (1.8-7.0); NEUT % 72.1 % (50.0-75.0); NRBC % 0.1 % (0.0-0.0); RBC 4.34 Mil/uL (4.40-5.90); RED CELL DISTRIBUTION WIDTH 13.9 % (11.5-14.5); WHITE BLOOD COUNT 8.2 K/uL (4.8-10.8)
[2017-08-24] MEDS ORDERED: Piperacillin/Tazobact 3.375 GM in Sodium Chloride 0.9% 100 ML IV STA (16:13)
[2017-08-24 16:20] LABS: INR 1.1 (0.9-1.2); PARTIAL THROMBOPLASTIN TIME 29.1 Seconds (25.6-37.1); PROTHROMBIN TIME 12.3 Seconds (9.8-13.1)
[2017-08-24 16:26] LABS: ALBUMIN 4.1 g/dL (3.5-5.0); ALT/SGPT 22 U/L (21-72); AST/SGOT 25 U/L (17-59); BLOOD UREA NITROGEN 18 mg/dl (9-20); CALCIUM 9.9 mg/dL (8.4-10.2); GFR AFRICAN-AMERICAN > 60; GFR NON-AFRICAN AMERICAN > 60
[2017-08-24] MEDS ORDERED: Piperacillin/Tazobact 3.375 gm Inj IVPB ONE (16:33)
[2017-08-24] MEDS ORDERED: Sodium Chloride 0.9% 500 ML IV STA (16:43)
--- NOTE | 2017-08-24 16:55 | CP.PCM.CON ---
History of Present Illness - History of Present Illness History of Present Illness: Podiatry consult note for Dr. Oneil, 67 y/o male patient with PMHx of Type II DM and HTN was seen in the ED accompanied with his . Patient was sent by Dr. Oneil due to concern of possible infection and gas gangrene in the right forefoot. Patient presents with swelling and redness to the right forefoot since Wednesday (August 18) with multiple ulcerations. Patient states the wound to the bottom of his foot has been present for several months. Patient last saw Dr. Oneil on , and patient was prescribed Amoxicillin 500 mg BID. Patient states he noted "lot of" drainage from the wounds. Patient states he was going to have a PICC line placed for 30 days and Ceftrixone administered. However, patient came to the ED instead today. Patient complains of minimal pain, admits to fever/Nausea, and denies V/SOB/posterior calf pain. Past surgical history: tonsillectomy, hernia repair and right fifth toe amputation. Allergies: contrast dye Review of Systems - Review of Systems All systems: reviewed and no additional remarkable complaints except Review of Systems: As per HPI Past Patient History - Past Medical History & Family History Past Medical History?: Yes - Past Social History Smoking Status: Never Smoked - NEUROLOGICAL Hx Neurological Disorder: Yes Other/Comment: DIABETIC NEUROPATHY - ENDOCRINE/METABOLIC Hx Endocrine Disorders: Yes Hx Diabetes Mellitus Type 1: Yes - MUSCULOSKELETAL/RHEUMATOLOGICAL Hx Falls: No - PSYCHIATRIC Hx Substance Use: No - SURGICAL HISTORY Hx Tonsillectomy: Yes - ANESTHESIA Hx Anesthesia: Yes Hx Anesthesia Reactions: No Meds Allergies/Adverse Reactions: Allergies Allergy/AdvReac Type Severity Reaction Status Date / Time cefazolin Allergy RASH Verified 08/24/17 17:15 - Medications Medications: Current Medications Piperacillin Sod/Tazobactam (Sod 3.375 gm/ Sodium Chloride) 100 mls @ 100 mls/ hr IV STAT STA PRN Reason: Protocol Stop: 08/24/17 17:12 Physical Exam - Constitutional Appears: Well, Non-toxic, No Acute Distress - Head Exam Head Exam: ATRAUMATIC, NORMOCEPHALIC - Extremities Exam Additional comments: Bilateral Lower Extremity Exam Vascular: DP and PT pulses palpable 2/4 bilaterally, CFT <3 secs x 9, Temperature gradient warm to warm on right foot, warm to cool on left foot, non- pitting edema noted surrounding the right fourth digit and distal lateral aspect of forefoot, erythema noted in the right forefoot, edema and erythema noted to the left second digit Neuro: protective sensation diminished Derm: Right: Ulcer noted submetatarsal 4 measuring approximately 2.5 cm x 2.5 cm X 3.0 cm. Macerated wound edges, 100% fibrotic-necrotic base, Positive probe to bone, (+) malodor noted, active serosanguinous drainage, tunneling noted proximally and dorsally to the level of the skin, periwound erythema noted Ulcer noted on lateral aspect of fourth metatarsal measuring approximately 1.5 x 0.5 cm x 0.3 cm, hyperkeratotic wound edges, 100% fibrotic, no probe to bone, malodor noted, no drainage, no tunneling or tracking noted, periwound erythema noted Maceration noted in third interspace with a linear fissure, 100% granular base, probe to bone, positive drainage noted, periwound erythema noted Blister noted on the dorsal aspect of the fourth toe with positive fluctuance, malodor, erythema Left: Ulcer noted to dorsal aspect of second toe measuring 1 cm x 1 cm x 0.2 cm. 100% fibrotic, no drainage, no malodor, no tunneling or tracking, no probe to bone. - Neurological Exam Neurological exam: Alert, Oriented x3 - Psychiatric Exam Psychiatric exam: Normal Affect, Normal Mood Results - Vital Signs Recent Vital Signs: Last Vital Signs Temp 97.6 F 08/24/17 14:31 Pulse 76 08/24/17 14:31 Resp 16 08/24/17 14:31 BP 131/80 08/24/17 14:31 Pulse Ox 97 08/24/17 16:18 - Labs Result Diagrams: 08/24/17 15:53 08/24/17 15:53 Labs: Laboratory Results - last 24 hr 08/24/17 08/24/17 08/24/17 15:49 15:53 15:53 WBC 8.2 RBC 4.34 L Hgb 14.4 Hct 43.5 MCV 100.1 H MCH 33.2 H MCHC 33.2 RDW 13.9 Plt Count 225 MPV 8.9 Neut % (Auto) 72.1 Lymph % (Auto) 12.2 L Bond % (Auto) 13.3 H Eos % (Auto) 1.4 Baso % (Auto) 1.0 Neut # (Auto) 5.9 Lymph # (Auto) 1.0 Bond # (Auto) 1.1 H Eos # (Auto) 0.1 Baso # (Auto) 0.1 pO2 13 L VBG pH 7.33 VBG pCO2 51 VBG HCO3 22.8 VBG Total CO2 28.5 H VBG O2 Sat (Calc) 29.5 L VBG Base Excess 0.2 VBG Potassium 5.2 Sodium 137.0 Chloride 96.0 L Glucose 294 H Lactate 1.5 FiO2 21.0 Venous Blood Potassium 5.2 BBK History Checked Patient has bt Assessment & Plan - Assessment and Plan (Free Text) Assessment: 67 y/o male patient with PMHx of Type II DM and HTN was seen in the ED accompanied with his . Patient was sent by Dr. Oneil due to concern of possible infection and gas in the right forefoot. Plan: Patient evaluated and seen at bedside Plan discussed in detail with attending Dr. Oneil Patient's dressing removed, and patient thoroughly evaluated Patient given a dose of Zosyn in the ED, as per Dr. Dhaliwal's recommendation Wound Cultures Ordered ID Consulted- appreciate recommendations Foot X-rays ordered- soft tissue swelling, cortical erosions of fourth digit- possible OM Patient explained the need for a bedside incision and drainage, and patient agreed Local anesthesia in a v-block with 1% Lidocaine plain and sterile 5 cc sero-sanguinous drainage expressed via #15 blade and 18 gauge needle in a sterile fashion Wounds flushed with copious amounts of betadine and normal saline, I&D site packed with 1/4 inch plain packing I&D site and wounds dressed with betadine soaked 4X4, ABD and Kerlix Patient tolerated the procedure well and is aware of a further need for I&D Thank you for the consult Podiatry will continue to follow patient while in-house
--- NOTE | 2017-08-24 17:02 | US ---
PROCEDURE: Soft tissue ultrasound HISTORY: RIGHT groin swelling COMPARISON: None TECHNIQUE: Standard protocol for this study/examination. FINDINGS: Innumerable large and abnormal appearing lymph nodes right inguinal region. The 3 largest measure 2 x 3.2 x 4.6 cm, 1.2 x 1.4 x 3 cm, 1.9 x 4.4 x 5.5 cm IMPRESSION: Multiple enlarged and morphologically abnormal and suspicious lymph nodes right inguinal region.
[2017-08-24] MEDS ORDERED: Piperacillin/Tazobact 3.375 GM in Sodium Chloride 0.9% 100 ML IVPB STA (17:03)
--- NOTE | 2017-08-24 17:03 | US ---
PROCEDURE: Right lower extremity venous duplex Doppler. HISTORY: r/o DVT COMPARISON: August 24, 2017. Soft tissue ultrasound right inguinal region documenting multiple enlarged and abnormal lymph nodes. TECHNIQUE: Common femoral, superficial femoral, popliteal and posterior tibial veins were evaluated. Flow was assessed with color Doppler, compressibility, assessment of phasic flow and augmentation response. FINDINGS: COMMON FEMORAL VEIN: Unremarkable. SUPERFICIAL FEMORAL VEIN: Unremarkable. POPLITEAL VEIN: Unremarkable. POSTERIOR TIBIAL VEIN: Unremarkable. OTHER FINDINGS: None. IMPRESSION: No evidence of deep venous thrombosis in the right lower extremity.
--- NOTE | 2017-08-24 17:06 | RAD ---
HISTORY: Diabetes. COMPARISON: 04/22/2017 TECHNIQUE: Chest PA and lateral FINDINGS: LUNGS: No active pulmonary disease. PLEURA: No significant pleural effusion identified. No pneumothorax apparent. CARDIOVASCULAR: No radiographic findings to suggest acute or significant cardiovascular disease. OSSEOUS STRUCTURES: No significant abnormalities. VISUALIZED UPPER ABDOMEN: Normal. OTHER FINDINGS: None. IMPRESSION: No active disease. No significant interval change compared to the prior examination(s).
--- NOTE | 2017-08-24 17:09 | RAD ---
PROCEDURE: Right Foot Radiographs. HISTORY: foot infection COMPARISON: 04/27/2017 FINDINGS: BONES: Surgical resection 4th digit and portions of the 3rd metatarsal. Chronic changes 1st metatarsal phalangeal joint. JOINTS: Subluxed 4th metatarsal phalangeal joint. SOFT TISSUES: Soft tissue ulcers 4th digit and lateral aspect of the right foot distally. OTHER FINDINGS: None. IMPRESSION: Diffuse soft tissue swelling. Plantar and lateral soft tissue ulcerations. Osseous erosive changes In particular findings at the surgical site 5th metatarsal highly suspicious for acute osteomyelitis.
[2017-08-24] MEDS ORDERED: Insulin Regular 100 units/ml SC STA (17:21)
[2017-08-24] MEDS ORDERED: Insulin Regular 100 units/ml ONE ×2 (17:25)
[2017-08-24] MEDS ORDERED: Lidocaine 1% MPF (30 ml) Inj INJ ONE (17:31)
[2017-08-24] MEDS ORDERED: Lidocaine 1% MPF (30 ml) Inj ONE (17:43)
[2017-08-24] MEDS ORDERED: Vancomycin 1 g Inj ONE (20:55)
[2017-08-24] MEDS ORDERED: Piperacillin/Tazobact 3.375 GM in Sodium Chloride 0.9% 100 ML IVPB SCH (22:00)
[2017-08-24] MEDS: Insulin Detemir 100 Units/ml Inj SC SCH (23:32)
[2017-08-24] MEDS: Piperacillin/Tazobact 3.375 GM in Sodium Chloride 0.9% 100 ML IVPB SCH (23:33)
[2017-08-25] MEDS: Piperacillin/Tazobact 3.375 GM in Sodium Chloride 0.9% 100 ML IVPB SCH ×4 (04:41→22:38)
[2017-08-25] MEDS ORDERED: Insulin Lispro (humaLOG) 100 Units/ml Inj SC SCH ×3 (07:00→08:30)
[2017-08-25] MEDS: Enoxaparin 40 mg Syringe SC SCH (08:54)
[2017-08-25] MEDS: Multivitamin With Minerals Tab PO SCH (08:54)
[2017-08-25] MEDS: Lactobacillus Acidophilus 500 MU Cap PO SCH (08:54)
[2017-08-25] MEDS: Cholecalciferol 400 Intl Units Tab PO SCH (08:54)
[2017-08-25 10:44] LABS: ALB/GLOB RATIO 0.8 (1.0-2.1); ALBUMIN 3.2 g/dL (3.5-5.0); ALT/SGPT 22 U/L (21-72); AST/SGOT 55 U/L (17-59); BLOOD UREA NITROGEN 14 mg/dl (9-20); CALCIUM 9.1 mg/dL (8.4-10.2); GFR AFRICAN-AMERICAN > 60; GFR NON-AFRICAN AMERICAN > 60
[2017-08-25 11:15] LABS: HEMOGLOBIN 13.5 g/dL (12.0-18.0); MEAN CELL VOLUME 99.3 fl (80.0-94.0); MEAN CORPUSCULAR HEMOGLOBIN 33.7 pg (27.0-31.0); RBC 4.01 Mil/uL (4.40-5.90); RED CELL DISTRIBUTION WIDTH 14.3 % (11.5-14.5); WHITE BLOOD COUNT 7.2 K/uL (4.8-10.8)
[2017-08-25] MEDS: Insulin Lispro (humaLOG) 100 Units/ml Inj SC SCH ×5 (12:39→21:12)
[2017-08-25] MEDS ORDERED: Povidone Iodine Topical 10% Sol ONE (12:42)
--- NOTE | 2017-08-25 13:44 | CP.PCM.PN ---
Subjective - Date & Time of Evaluation Date of Evaluation: 08/25/17 Time of Evaluation: 13:40 - Subjective Subjective: Podiatry progress note for attending, Dr. Dodge, 67 y/o male seen and evaluated at bedside for wounds to plantar and lateral aspect of the right foot and to the 2nd digit left. Patient is resting comfortably in bed, in no acute distress, and states he feels better. Patient's dressing was soaked, and strike-through was noted. Patient had the surgical shoe to the right foot. Patient complains of fever and chills during the night. Patient denies N/V/F/SOB. Objective - Vital Signs/Intake and Output Vital Signs (last 24 hours): Temp Pulse Resp BP Pulse Ox 97.8 F 69 19 145/81 95 08/25/17 09:00 08/25/17 09:00 08/25/17 09:00 08/25/17 09:00 08/25/17 09:00 - Medications Medications: Current Medications Enoxaparin Sodium (Lovenox) 40 mg SC DAILY [facility] PRN Reason: Protocol Last Admin: 08/25/17 08:54 Dose: 40 mg Vancomycin HCl 1 gm/ Sodium (Chloride) 250 mls @ 166.667 mls/hr IVPB Q12H [facility] PRN Reason: Protocol Last Admin: 08/25/17 08:54 Dose: 166.667 mls/hr Piperacillin Sod/Tazobactam (Sod 3.375 gm/ Sodium Chloride) 100 mls @ 100 mls/ hr IVPB Q6H [facility] PRN Reason: Protocol Last Admin: 08/25/17 11:33 Dose: 100 mls/hr Insulin Detemir (Levemir) 60 units SC HS [facility] Last Admin: 08/24/17 23:32 Dose: 60 u Insulin Human Lispro (Humalog) 24 units SC TIDAC [facility] Last Admin: 08/25/17 12:39 Dose: 24 units Insulin Human Lispro (Humalog) 0 units SC ACHS [facility] PRN Reason: Protocol Last Admin: 08/25/17 12:39 Dose: 3 units Lactobacillus Acidophilus (Bacid Acidophilus) 1 cap PO DAILY [facility] Last Admin: 08/25/17 08:54 Dose: 1 cap Multivitamins/Minerals (Therapeutic-M Tab) 1 tab PO DAILY [facility] Last Admin: 08/25/17 08:54 Dose: 1 tab Vitamin D (Vitamin D 400 Intl Units Tab) 400 intlu PO DAILY [facility] Last Admin: 08/25/17 08:54 Dose: 400 intlu - Labs Labs: 08/25/17 11:01 08/25/17 10:12 PT 12.3 Seconds (9.8-13.1) 08/24/17 15:53 INR 1.1 (0.9-1.2) 08/24/17 15:53 APTT 29.1 Seconds (25.6-37.1) 08/24/17 15:53 - Constitutional Appears: Well, Non-toxic, No Acute Distress - Head Exam Head Exam: ATRAUMATIC, NORMOCEPHALIC - Extremities Exam Additional comments: Right Lower Extremity Vasc: DP and PT pulses 2/4, CFT less than 3 seconds X 4, TG warm to warm, increased swelling noted to the lateral aspect of the foot and the 4th digit Neuro: protective sensation significantly diminished Derm: Right: Ulcer noted submetatarsal 4 measuring approximately 2.5 cm x 2.5 cm X 3.0 cm. Macerated wound edges, 100% fibrotic-necrotic base, Positive probe to bone, (+) malodor noted, active serosanguinous drainage, positive fluctuance, increased warmth, tunneling noted proximally and dorsally to the level of the skin, increasing periwound erythema noted Macerated skin de-roofed to the lateral aspect of the 4th and underlying ulceration noted, irregular in shace, positive malodor, no drainage, wound base mostly granular with areas of fibrosis, negative probe to bone, no tunneling noted, no undermining, no fluctuance at this site Maceration noted in third interspace with a linear fissure, 100% granular base, probe to bone, positive drainage noted, periwound erythema noted Blister noted on the dorsal aspect of the fourth toe with positive fluctuance, malodor, erythema Left: Ulcer noted to dorsal aspect of second toe measuring 1 cm x 1 cm x 0.2 cm. 100% fibrotic, positibe serous drainage, positive malodor, no tunneling or tracking, no probe to bone. MSK: minimal pain on palpation - Neurological Exam Neurological Exam: Alert, Awake, Oriented x3 - Psychiatric Exam Psychiatric exam: Normal Affect, Normal Mood Assessment and Plan - Assessment and Plan (Free Text) Assessment: 67 y/o male seen and evaluated at bedside for wounds to plantar and lateral aspect of the right foot and to the 2nd digit left Plan: Patient seen and evaluated at bedside Plan discussed with attending Dr. Dodge Chart, Labs and vitals reviewed, WBC- 7.2 Wound Cx- Prelim- Staph species, Gram + Cocci Foot X-ray- surgical resection 4th digit and portions of 3rd metatarsal, subluxed 4th MTPJ, cortical erosions highly suspicious for OM LE US: negative for DVT 2 cc of sero-sanguinous drainage expressed at bedside, and wound dressed with betadine, 4x4, ABD and kerlix As per Dr. Dodge, Patient will be taken to the OR on 08/26/17 for a debridement and washout Patient aware of the plan and consent will be obtained Patient to be NPO after midnight, patient's nurse is aware Patient primary care attending aware of plan Podiatry will continue to follow patient while in house
--- NOTE | 2017-08-25 20:58 | CP.PCM.HP ---
History of Present Illness - History of Present Illness History of Present Illness: CC: Referred to ER for Right Foot Infection History of Present Illness: A 67 y/o male patient with PMHx of Type II DM and HTN was seen in the ED accompanied with his . Patient was sent by Dr. Oneil due to concern of possible infection and gas gangrene in the right forefoot. Patient presents with swelling and redness to the right forefoot since Wednesday (August 18) with multiple ulcerations. Patient states the wound to the bottom of his foot has been present for several months. Patient last saw Dr. Oneil on , and patient was prescribed Amoxicillin 500 mg BID. Patient states he noted "lot of" drainage from the wounds. Patient states he was going to have a PICC line placed for 30 days and Ceftrixone administered. However, patient came to the ED instead today. Patient complains of minimal pain, admits to fever/Nausea, and denies N/V/Chest Pain/SOB/posterior calf pain. Present on Admission - Present on Admission Any Indicators Present on Admission: Yes History of Uncontrolled Diabetes: Yes Review of Systems - Review of Systems All systems: reviewed and no additional remarkable complaints except Past Patient History - Past Medical History & Family History Past Medical History?: Yes Past Family History: Reviewed and not pertinent - Past Social History Smoking Status: Never Smoked Alcohol: Social Drugs: Denies - CARDIAC Hx Cardiac Disorders: No - PULMONARY Hx Respiratory Disorders: No - NEUROLOGICAL Hx Neurological Disorder: Yes (diabetic neuropathy) - HEENT Hx HEENT Problems: No - RENAL Hx Chronic Kidney Disease: No - ENDOCRINE/METABOLIC Hx Endocrine Disorders: Yes (DM) Hx Diabetes Mellitus Type 2: Yes - HEMATOLOGICAL/ONCOLOGICAL Hx Blood Disorders: No - INTEGUMENTARY Hx Dermatological Problems: No - MUSCULOSKELETAL/RHEUMATOLOGICAL Hx Musculoskeletal Disorders: No Hx Falls: Yes - GASTROINTESTINAL Hx Gastrointestinal Disorders: No - GENITOURINARY/GYNECOLOGICAL Hx Genitourinary Disorders: No - PSYCHIATRIC Hx Psychophysiologic Disorder: No Hx Substance Use: No - SURGICAL HISTORY Hx Tonsillectomy: Yes - ANESTHESIA Hx Anesthesia: Yes Hx Anesthesia Reactions: No Meds Allergies/Adverse Reactions: Allergies Allergy/AdvReac Type Severity Reaction Status Date / Time cefazolin Allergy RASH Verified 08/24/17 17:15 Physical Exam - Constitutional Appears: Well, No Acute Distress - Head Exam Head Exam: ATRAUMATIC, NORMAL INSPECTION, NORMOCEPHALIC - Eye Exam Eye Exam: EOMI, Normal appearance, PERRL Pupil Exam: NORMAL ACCOMODATION, PERRL - ENT Exam ENT Exam: Mucous Membranes Moist, Normal Exam - Neck Exam Neck exam: Positive for: Full Rom, Normal Inspection - Respiratory Exam Respiratory Exam: Clear to Auscultation Bilateral, NORMAL BREATHING PATTERN - Cardiovascular Exam Cardiovascular Exam: REGULAR RHYTHM, +S1, +S2 - GI/Abdominal Exam GI & Abdominal Exam: Normal Bowel Sounds, Soft. absent: Tenderness - Back Exam Back exam: FULL ROM, NORMAL INSPECTION. absent: CVA tenderness (L), CVA tenderness (R) - Neurological Exam Neurological exam: Alert, CN II-XII Intact, Normal Gait, Oriented x3, Reflexes Normal - Psychiatric Exam Psychiatric exam: Normal Affect, Normal Mood - Skin Skin Exam: Dry, Intact, Normal Color, Warm Results - Vital Signs Recent Vital Signs: Last Vital Signs Temp 97.8 F 08/25/17 16:50 Pulse 68 08/25/17 16:50 Resp 20 08/25/17 16:50 BP 144/82 08/25/17 16:50 Pulse Ox 95 08/25/17 16:50 - Labs Result Diagrams: 08/25/17 11:01 08/26/17 05:15 Labs: Laboratory Results - last 24 hr 08/24/17 08/25/17 08/25/17 23:27 07:17 10:12 WBC RBC Hgb Hct MCV MCH MCHC RDW Plt Count ESR Sodium 139 Potassium 4.6 Chloride 99 Carbon Dioxide 29 Anion Gap 16 BUN 14 Creatinine 0.9 Est GFR ( Amer) > 60 Est GFR (Non-Af Amer) > 60 POC Glucose (mg/dL) 358 H 267 H Random Glucose 275 H Hemoglobin A1c Calcium 9.1 Total Bilirubin 0.7 AST 55 ALT 22 Alkaline Phosphatase 80 Total Protein 7.0 Albumin 3.2 L D Globulin 3.9 Albumin/Globulin Ratio 0.8 L TSH 3rd Generation 1.20 08/25/17 08/25/17 08/25/17 10:12 10:51 11:01 WBC 7.2 RBC 4.01 L Hgb 13.5 Hct 39.8 MCV 99.3 H MCH 33.7 H MCHC 34.0 RDW 14.3 Plt Count 222 ESR 89 H Sodium Potassium Chloride Carbon Dioxide Anion Gap BUN Creatinine Est GFR ( Amer) Est GFR (Non-Af Amer) POC Glucose (mg/dL) 305 H Random Glucose Hemoglobin A1c 8.8 H Calcium Total Bilirubin AST ALT Alkaline Phosphatase Total Protein Albumin Globulin Albumin/Globulin Ratio TSH 3rd Generation 08/25/17 17:23 WBC RBC Hgb Hct MCV MCH MCHC RDW Plt Count ESR Sodium Potassium Chloride Carbon Dioxide Anion Gap BUN Creatinine Est GFR ( Amer) Est GFR (Non-Af Amer) POC Glucose (mg/dL) 186 H Random Glucose Hemoglobin A1c Calcium Total Bilirubin AST ALT Alkaline Phosphatase Total Protein Albumin Globulin Albumin/Globulin Ratio [facility] 3rd Generation - EKG Data EKG Interpreted by: Myself EKG shows normal: Sinus rhythm, [place], Intervals, QRS complexes, ST-T waves Rate: Normal - Imaging and Cardiology Right Foot X Ray: Status: Report reviewed by me Additional comment: Right Foot Radiographs. HISTORY: foot infection COMPARISON: 04/27/2017 FINDINGS: BONES: Surgical resection 4th digit and portions of the 3rd metatarsal. Chronic changes 1st metatarsal phalangeal joint. JOINTS: Subluxed 4th metatarsal phalangeal joint. SOFT TISSUES: Soft tissue ulcers 4th digit and lateral aspect of the right foot distally. OTHER FINDINGS: None. IMPRESSION: Diffuse soft tissue swelling. Plantar and lateral soft tissue ulcerations. Osseous erosive changes In particular findings at the surgical site 5th metatarsal highly suspicious for acute osteomyelitis. U/S BL Venous Doppler: Status: Report reviewed by me Additional comment: No DVT Chest x-ray Status: Report reviewed by me Additional comment: No Active Disease Assessment & Plan (1) Diabetic infection of right foot Assessment and Plan: S/P I&D Possible Acute Osteomyelitis IVF IV Vancomycin/Zosyn Probiotics Wound Care daily Vancomycin P/T Wound Culture Pending ID and Steeping Press Tender onboard Medically Cleared for Wound Debridement Pain Control PRN Status: Acute Priority: High (2) Diabetes mellitus with hyperglycemia Assessment and Plan: Continue Home Medication Accu-check with SS Low Coverage Status: Acute Priority: Medium (3) PVD (peripheral vascular disease) Status: Acute Priority: Medium Comment: Continue ASA/Statin (4) DVT prophylaxis Status: Inactive Priority: Medium
[2017-08-25] MEDS: Insulin Detemir 100 Units/ml Inj SC SCH (21:12)
[2017-08-25] MEDS: Dextrose 5%/0.9% NS 1,000 ML IV SCH (21:13)
--- NOTE | 2017-08-25 23:36 | CON ---
DATE: 08/25/2017 ENDOCRINOLOGY CONSULTATION LOCATION: In room 663. HISTORY OF PRESENT ILLNESS: This is a 67-year-old male with known history of type 2 insulin-requiring diabetes, presenting here with progressively worsening cellulitis of the right foot and possible gas gangrene. He is evaluated by his chief financial officer and has been admitted now for further evaluation and management and is also being referred for diabetic evaluation because of persistent hyperglycemic accelerations as noted thereof. PAST MEDICAL HISTORY: As mentioned above, history of type 2 insulin-requiring diabetes with extremes of glycemic fluctuations and actually his last A1c was over 9% despite a high dose of his current insulin regimen. He has been using Tresiba and/or Levemir given as 70 units at bedtime with NovoLog given as 20 to 30 units t.i.d. before meals. History of hypertension and dyslipidemia, history of diabetic polyneuropathy with underlying peripheral arterial vasculopathy. He had a previous right fifth toe amputation in the past. He has had previous admissions for recurrent nonhealing ulcerations on the right foot as noted. He was actually scheduled to have a PICC line inserted for ongoing IV antibiotics on the outpatient as noted. There is also history of secondary hypogonadism and has been using testosterone injections every 2 weeks given intramuscularly. FAMILY HISTORY: Positive for hypertension and heart disease. SOCIAL HISTORY The patient has a supportive family. No known substance use. REVIEW OF SYSTEMS: As mentioned above. Admits to generalized body weakness with easy fatigability and tiredness and suboptimal energy level. Also admits to dizziness and lightheadedness, worse on the day of admission. No chest pains or palpitations or PND. His oral intake has been variable with nausea, dyspepsia, and vague upper abdominal pains. He also admits to episodic polyuria and nocturia. Also admits to erectile dysfunction for some years now. Also admits to lower extremity painful paresthesias, especially nocturnally. Moreover, admits to recent swelling in the right groin area with worsening redness and edema and ulcerations in the right foot, both in the dorsal aspect and the plantar aspect as noted. PHYSICAL EXAMINATION: VITAL SIGNS: This is an overweight male, in no apparent distress with a blood pressure of 150/90, pulse of 70 beats per minute and regular, temperature 98, and respirations 20. Height is 6 feet 2 inches, weight is 240 pounds. HEENT: Head is normocephalic. Eyes anicteric with pink conjunctivae. Funduscopy is not possible at this time. Ears, nose, and throat, otherwise, normal. NECK: Supple. Thyroid gland is normal in size. No carotid bruits or cervical adenopathy. CARDIOPULMONARY: Some adynamic precordium. S1, S2 is rapid and regular. LUNGS: Clear to auscultation. ABDOMEN: Flat, soft with positive bowel sounds. EXTREMITIES: There is marked erythema and edema in the right forefoot with multiple ulcerations in both the dorsal aspect and a larger ulceration in the plantar aspect which is nonhealing with the presence of exudate as noted. LABORATORY DATA: His chemistry showed a BUN of 14, sodium 139, potassium 4.6, chloride 99, CO2 of 29, glucose 275, and creatinine 0.9. His glucose levels have ranged from 267 to 305 mg/dL. ASSESSMENT: This is a 67-year-old male with uncontrolled and decompensated type 2 insulin-requiring diabetes with marked hyperglycemic accelerations and a suboptimal metabolic control even on the outpatient, presenting here with right foot cellulitis and underlying neuropathic ulcerations with possible bowel gas gangrene in the right forefoot as evaluated by Podiatry as noted. He also has diabetic polyneuropathy with peripheral arterial vasculopathy as noted. PLAN OF MANAGEMENT: As discussed with the patient and the staff, we will modify once again his basal and bolus insulin regimen and titrate higher to optimize metabolic control. We will increase the Humalog to 24 units subcutaneously t.i.d. before meals to start today. We will modify the coverage scale to obviate hypoglycemia and detailed orders have been given. We will also add basal insulin with Levemir given as 60 units subcutaneously at bedtime daily to start tonight. We will concur with the present management with local debridement of his right foot ulcerations and cellulitis as undertaken by Podiatry at this time. Ongoing IV antibiotic management as given. We will obtain serial chemistries and supplement accordingly as needed. We will follow. Nanette Blake MD
[2017-08-26] MEDS: Piperacillin/Tazobact 3.375 GM in Sodium Chloride 0.9% 100 ML IVPB SCH ×4 (05:15→22:40)
[2017-08-26 06:43] LABS: LDL CHOLESTEROL 133 mg/dL (0-129)
[2017-08-26] MEDS: Insulin Lispro (humaLOG) 100 Units/ml Inj SC SCH ×7 (06:51→22:43)
[2017-08-26 07:02] LABS: ALBUMIN 3.4 g/dL (3.5-5.0); ALT/SGPT 22 U/L (21-72); AST/SGOT 32 U/L (17-59); BLOOD UREA NITROGEN 11 mg/dl (9-20); CALCIUM 9.1 mg/dL (8.4-10.2); GFR AFRICAN-AMERICAN > 60; GFR NON-AFRICAN AMERICAN > 60; HDL CHOLESTEROL 18 MG/DL (30-70)
[2017-08-26] MEDS: Dextrose 5%/0.9% NS 1,000 ML IV SCH (08:29)
--- NOTE | 2017-08-26 08:39 | CARD ---
APPROVED REPORT EKG Measurement Heart [id number] [id number] [id number] <Conclusion> Normal sinus rhythm Normal ECG
[2017-08-26] MEDS ORDERED: Lidocaine 1% Inj (20ml) ONE (09:00)
[2017-08-26] MEDS ORDERED: Propofol 10 mg/ml Inj (20 ML) ONE (09:06)
[2017-08-26] MEDS ORDERED: Midazolam 2 MG/2 ML VIAL ONE (09:06)
[2017-08-26] MEDS ORDERED: Lidocaine 2% MPF (5 ml) Inj ONE (09:07)
[2017-08-26] MEDS: Multivitamin With Minerals Tab PO SCH ×2 (09:25→12:46)
[2017-08-26] MEDS: Lactobacillus Acidophilus 500 MU Cap PO SCH ×2 (09:25→12:45)
[2017-08-26] MEDS: Cholecalciferol 400 Intl Units Tab PO SCH ×2 (09:25→12:46)
[2017-08-26] MEDS: Bupivacaine HCl 0.5% PF (10 ml) Inj ONE ×2 (10:05→10:08)
[2017-08-26] MEDS ORDERED: Lidocaine 1% Inj (20ml) IJ ONE ×2 (10:05→10:08)
[2017-08-26] MEDS ORDERED: Sodium Chloride 0.9% 1,000 ML IV ONE (10:38)
[2017-08-26] MEDS ORDERED: HYDROmorphone 0.5 mg/0.5 ml ISec IVP PRN (11:03)
[2017-08-26] MEDS ORDERED: Sodium Chloride 0.9% 1,000 ML IV PRN (11:03)
[2017-08-26] MEDS ORDERED: Oxycodone/Acetaminophen 5/325 mg Tab PO PRN ×2 (11:07)
--- NOTE | 2017-08-26 11:15 | PCM.SURG1 ---
Surgeon's Initial Post Op Note - Surgeon's Notes Surgeon: Dr. Dodge, DPM Sap Pi Architect: Bandar Newman PGY2, Jarod Tello Type of Anesthesia: IV Sedation, Local Anesthesia Administered By: Dr. De La Cruz Pre-Operative Diagnosis: Infected diabetic ulcer right foot, ulceration of left second digit with hammertoe deformity Operative Findings: See dictation report. M- 1/4 inch iodosorb packing, 3-0 vicryl, 3-0 prolene. I - 25 cc 1:1 1% lidocaine plain, 0.5% marcaine plain Post-Operative Diagnosis: Same Operation Performed: Amputation of right fourth digit and partial amputation of fourth metatarsal with debridement of diabetic ulcerations and removal of all nonviable soft tissue and bone. Correction of left second digit hammertoe deformity with arthroplasty of PIPJ and tenotomy of second extonsor digitorum longus tendon at metatarsophalangeal joint Specimen/Specimens Removed: Right fourth digit, right fourth metatarsal head, left second digit bone specimen Estimated Blood Loss: EBL {In ML}: 10 Blood Products Given: N/A Drains Used: No Drains Post-Op Condition: Good Date of Surgery/Procedure: 08/26/17 Time of Surgery/Procedure: 11:15
--- NOTE | 2017-08-26 12:24 | RAD ---
PROCEDURE: Bilateral Feet Radiographs. HISTORY: s/p bilateral foot surgery with removal of bone COMPARISON: None. FINDINGS: BONES: Right Foot: Prior osteotomy distal aspect 1st through 5th metatarsals thumb. Status post amputation 4th and 5th digits at the distal metatarsal aspect. Osteotomy of the proximal aspect 1st proximal phalanx and 2nd and 3rd proximal phalanges. No acute fracture. Left Foot: Status post osteotomy distal aspect 2nd proximal phalanx. No acute fracture. JOINTS: Right Foot: Normal. No osteoarthritis. Left Foot: Normal. No osteoarthritis. SOFT TISSUES: Right Foot: Normal. Left Foot: Normal. OTHER FINDINGS: None. IMPRESSION: Amputations an osteotomies of right foot as described. Osteotomy left 2nd proximal phalanx. No acute fracture.
--- NOTE | 2017-08-26 12:46 | CP.PCM.PN ---
Subjective - Date & Time of Evaluation Date of Evaluation: 08/26/17 Time of Evaluation: 12:44 - Subjective Subjective: Podiatry progress note for attending Dr. Dodge, 67 y/o male seen and evaluated at bedside today prior to surgery. Patient was resting comfortably and in no acute distress. Patient's dressing was soaked with sero-sanguinous drainage. Patient's NPO status was confirmed. Objective - Vital Signs/Intake and Output Vital Signs (last 24 hours): Temp Pulse Resp BP Pulse Ox 97.1 F L 63 18 116/76 95 08/26/17 12:16 08/26/17 12:16 08/26/17 12:16 08/26/17 12:16 08/26/17 12:16 Intake and Output: 08/26/17 08/26/17 06:59 18:59 Intake Total 550 Balance 550 - Medications Medications: Current Medications Acetaminophen (Tylenol 325mg Tab) 650 mg PO Q4 PRN PRN Reason: Pain, Mild (1-3) Enoxaparin Sodium (Lovenox) 40 mg SC DAILY [facility]OR[facility] PRN Reason: Protocol Last Admin: 08/25/17 08:54 Dose: 40 mg Hydromorphone HCl (Dilaudid) 0.5 mg IVP Q15M PRN PRN Reason: Pain, moderate (4-7) Stop: 08/27/17 11:04 Vancomycin HCl 1 gm/ Sodium (Chloride) 250 mls @ 166.667 mls/hr IVPB Q12H [facility] PRN Reason: Protocol Last Admin: 08/26/17 08:25 Dose: 166.667 mls/hr Piperacillin Sod/Tazobactam (Sod 3.375 gm/ Sodium Chloride) 100 mls @ 100 mls/ hr IVPB Q6H [facility] PRN Reason: Protocol Last Admin: 08/26/17 11:05 Dose: 100 mls Dextrose/Sodium Chloride (Dextrose 5%/0.9% Ns 1000 Ml) 1,000 mls @ 100 mls/hr IV .Q10H [facility] Stop: 08/26/17 20:59 Last Admin: 08/26/17 08:29 Dose: Not Given Sodium Chloride (Sodium Chloride 0.9%) 1,000 mls @ 75 mls/hr IV .[id number] PRN PRN Reason: Hypotension Insulin Detemir (Levemir) 60 units SC HS [facility] Last Admin: 08/25/17 21:12 Dose: 60 u Insulin Human Lispro (Humalog) 24 units SC TIDAC [facility] Last Admin: 08/26/17 08:53 Dose: Not Given Insulin Human Lispro (Humalog) 0 units SC ACHS [facility] PRN Reason: Protocol Last Admin: 08/26/17 06:51 Dose: Not Given Lactobacillus Acidophilus (Bacid Acidophilus) 1 cap PO DAILY [facility] Last Admin: 08/26/17 09:25 Dose: Not Given Multivitamins/Minerals (Therapeutic-M Tab) 1 tab PO DAILY [facility] Last Admin: 08/26/17 09:25 Dose: Not Given Oxycodone/Acetaminophen (Percocet 5/325 Mg Tab) 1 tab PO Q4 PRN PRN Reason: Pain, moderate (4-7) Stop: 08/29/17 11:08 Oxycodone/Acetaminophen (Percocet 5/325 Mg Tab) 2 tab PO Q4 PRN PRN Reason: Pain, severe (8-10) Stop: 08/29/17 11:08 Vitamin D (Vitamin D 400 Intl Units Tab) 400 intlu PO DAILY [facility] Last Admin: 08/26/17 09:25 Dose: Not Given - Labs Labs: 08/25/17 11:01 08/26/17 05:15 PT 12.3 Seconds (9.8-13.1) 08/24/17 15:53 INR 1.1 (0.9-1.2) 08/24/17 15:53 APTT 29.1 Seconds (25.6-37.1) 08/24/17 15:53 - Constitutional Appears: Well, Non-toxic, No Acute Distress - Head Exam Head Exam: ATRAUMATIC, NORMOCEPHALIC - Extremities Exam Additional comments: Dressing was left intact as patient was going to surgery - Neurological Exam Neurological Exam: Alert, Awake, Oriented x3 - Psychiatric Exam Psychiatric exam: Normal Affect, Normal Mood Assessment and Plan - Assessment and Plan (Free Text) Assessment: 67 y/o male seen and evaluated for right foot infection and left digit hammertoe with ulceration Plan: Patient seen and evaluated at bedside Patient to be going to the OR today with Dr. Dodge Dressing not changed
--- NOTE | 2017-08-26 19:41 | CP.PCM.CON ---
History of Present Illness - History of Present Illness History of Present Illness: 67 y/o male patient with PMHx of Type II DM and HTN was was sent by Dr. Oneil due to concern of possible infection and gas gangrene in the right forefoot. Patient presents with swelling and redness to the right forefoot since Wednesday (August 18) with multiple ulcerations. Patient states the wound to the bottom of his foot has been present for several months. Patient last saw Dr. Oneil on , and patient was prescribed Amoxicillin 500 mg BID. Patient states he noted "lot of" drainage from the wounds. Patient states he was going to have a PICC line placed for 30 days and Ceftrixone administered. However, patient came to the ED instead today. Patient complains of minimal pain , admits to fever/Nausea, and denies V/SOB/posterior calf pain. c/o swelling to right groin Past surgical history: tonsillectomy, hernia repair and right fifth toe amputation. mohs surgery for melanoma right leg PMHx of Type II DM and HTN Allergies: contrast dye cefazolin Review of Systems - Review of Systems All systems: reviewed and no additional remarkable complaints except - Constitutional Constitutional: As Per HPI - EENT Eyes: absent: As Per HPI, Blind Spots, Blurred Vision, Change in Vision, Decreased Night Vision, Diplopia, Discharge, Dry Eye, Exophthalmos, Floaters, Irritation, Itchy Eyes, Loss of Peripheral Vision, Pain, Photophobia, Requires Corrective Lenses, Sees Flashes, Spots in Vision, Tunnel Vision, Other Visual Disturbances, Loss of Vision, Other Ears: absent: As Per HPI, Decreased Hearing, Ear Discharge, Ear Pain, Tinnitus, Abnormal Hearing, Disequilibrium, Dizziness, Other Nose/Mouth/Throat: absent: As Per HPI, Epistaxis, Nasal Congestion, Nasal Discharge, Nasal Obstruction, Nasal Trauma, Nose Pain, Post Nasal Drip, Sinus Pain, Sinus Pressure, Bleeding Gums, Change in Voice, Dental Pain, Dry Mouth, Dysphagia, Halitosis, Hoarsness, Lip Swelling, Mouth Lesions, Mouth Pain, Odynophagia, Sore Throat, Throat Swelling, Tongue Swelling, Facial Pain, Neck Pain, Neck Mass, Other - Cardiovascular Cardiovascular: absent: As Per HPI, Acrocyanosis, Chest Pain, Chest Pain at Rest , Chest Pain with Activity, Claudication, Diaphoresis, Dyspnea, Dyspnea on Exertion, Edema, Irregular Heart Rhythm, Pain Radiating to Arm/Neck/Jaw, Leg Edema, Leg Ulcers, Lightheadedness, Orthopnea, Palpitations, Paroxysmal Nocturnal Dyspnea, Pedal Edema, Radiating Pain, Rapid Heart Rate, Slow Heart Rate, Syncope, Other - Respiratory Respiratory: absent: As Per HPI, Cough, Dyspnea, Hemoptysis, Dyspnea on Exertion , Wheezing, Snoring, Stridor, Pain on Inspiration, Chest Congestion, Excessive Mucous Production, Change in Mucous Color, Pain with Coughing, Other - Gastrointestinal Gastrointestinal: absent: As Per HPI, Abdominal Pain, Belching, Bloating, Change in Bowel Habits, Change in Stool Character, Coffee Ground Emesis, Constipation, Cramping, Diarrhea, Dyspepsia, Dysphagia, Early Satiety, Excessive Flatus, Fecal Incontinence, Heartburn, Hematemesis, Hematochezia, Loose Stools, Melena, Nausea, Odynophagia, Temesmus, Vomiting, Other - Genitourinary Genitourinary: absent: As Per HPI, Change in Urinary Stream, Difficulty Urinating, Dysuria, Flank Pain, Hematuria, Pyuria, Nocturia, Urinary Incontinence, Urinary Frequency, Urinary Hesitance, Urinary Urgency, Voiding Freq/Small Amts, Freq UTI, Hx Renal/Bladder Calculi, Hx /Renal Surgery, Bladder Distension, Other - Musculoskeletal Musculoskeletal: As Per HPI - Integumentary Integumentary: As Per HPI - Neurological Neurological: absent: As Per HPI, Abnormal Gait, Abnormal Hearing, Abnormal Movements, Abnormal Speech, Behavioral Changes, Burning Sensations, Confusion, Convulsions, Disequilibrium, Dizziness, Numbness, Focal Weakness, Frequent Falls , Headaches, Lack of Coordination, Loss of Vision, Memory Loss, Paresthesias, Radicular Pain, Restless Legs, Sensory Deficit, Syncope, Tingling, Tremor, Vertigo, Weakness, Other Visual Disturbances, Other - Psychiatric Psychiatric: absent: As Per HPI, Abnormal Sleep Pattern, Anhedonia, Anxiety, Auditory Hallucinations, Behavioral Changes, Change in Appetite, Change in Libido, Confusion, Depression, Difficulty Concentrating, Hallucinations, Homicidal Ideation, Hopelessness, Irritability, Memory Loss, Mood Swings, Panic Attacks, Paranoia, Suicidal Ideation, Visual Hallucinations, Tactile Hallucinations, Other - Endocrine Endocrine: As Per HPI - Hematologic/Lymphatic Hematologic: absent: As Per HPI, Easy Bleeding, Easy Bruising, Lymphadenopathy, Other Past Patient History - Past Medical History & Family History Past Medical History?: Yes Past Family History: Reviewed and not pertinent - Past Social History Smoking Status: Never Smoked Alcohol: Social Drugs: Denies - CARDIAC Hx Cardiac Disorders: No - PULMONARY Hx Respiratory Disorders: No - NEUROLOGICAL Hx Neurological Disorder: Yes (diabetic neuropathy) - HEENT Hx HEENT Problems: No - RENAL Hx Chronic Kidney Disease: No - ENDOCRINE/METABOLIC Hx Endocrine Disorders: Yes (DM) Hx Diabetes Mellitus Type 2: Yes - HEMATOLOGICAL/ONCOLOGICAL Hx Blood Disorders: No - INTEGUMENTARY Hx Dermatological Problems: No - MUSCULOSKELETAL/RHEUMATOLOGICAL Hx Musculoskeletal Disorders: No Hx Falls: Yes - GASTROINTESTINAL Hx Gastrointestinal Disorders: No - GENITOURINARY/GYNECOLOGICAL Hx Genitourinary Disorders: No - PSYCHIATRIC Hx Psychophysiologic Disorder: No Hx Substance Use: No - SURGICAL HISTORY Hx Tonsillectomy: Yes - ANESTHESIA Hx Anesthesia: Yes Hx Anesthesia Reactions: No Meds Allergies/Adverse Reactions: Allergies Allergy/AdvReac Type Severity Reaction Status Date / Time cefazolin Allergy RASH Verified 08/24/17 17:15 - Medications Medications: Current Medications Acetaminophen (Tylenol 325mg Tab) 650 mg PO Q4 PRN PRN Reason: Pain, Mild (1-3) Enoxaparin Sodium (Lovenox) 40 mg SC DAILY [facility] PRN Reason: Protocol Last Admin: 08/25/17 08:54 Dose: 40 mg Hydromorphone HCl (Dilaudid) 0.5 mg IVP Q15M PRN PRN Reason: Pain, moderate (4-7) Stop: 08/27/17 11:04 Vancomycin HCl 1 gm/ Sodium (Chloride) 250 mls @ 166.667 mls/hr IVPB Q12H [facility] PRN Reason: Protocol Last Admin: 08/26/17 08:25 Dose: 166.667 mls/hr Piperacillin Sod/Tazobactam (Sod 3.375 gm/ Sodium Chloride) 100 mls @ 100 mls/ hr IVPB Q6H [facility] PRN Reason: Protocol Last Admin: 08/26/17 17:03 Dose: 100 mls/hr Sodium Chloride (Sodium Chloride 0.9%) 1,000 mls @ 75 mls/hr IV .[id number] PRN PRN Reason: Hypotension Insulin Detemir (Levemir) 70 units SC [facility] Insulin Human Lispro (Humalog) 0 units SC ACHS [facility] PRN Reason: Protocol Last Admin: 08/26/17 17:03 Dose: Not Given Insulin Human Lispro (Humalog) 30 units SC TIDAC [facility] Last Admin: 08/26/17 17:04 Dose: 30 units Lactobacillus Acidophilus (Bacid Acidophilus) 1 cap PO DAILY [facility] Last Admin: 08/26/17 12:45 Dose: 1 cap Multivitamins/Minerals (Therapeutic-M Tab) 1 tab PO DAILY [facility] Last Admin: 08/26/17 12:46 Dose: 1 tab Oxycodone/Acetaminophen (Percocet 5/325 Mg Tab) 1 tab PO Q4 PRN PRN Reason: Pain, moderate (4-7) Stop: 08/29/17 11:08 Oxycodone/Acetaminophen (Percocet 5/325 Mg Tab) 2 tab PO Q4 PRN PRN Reason: Pain, severe (8-10) Stop: 08/29/17 11:08 Vitamin D (Vitamin D 400 Intl Units Tab) 400 intlu PO DAILY [facility] Last Admin: 08/26/17 12:46 Dose: 400 intlu Physical Exam - Constitutional Appears: Non-toxic, Chronically Ill - Head Exam Head Exam: ATRAUMATIC, NORMAL INSPECTION, NORMOCEPHALIC - Eye Exam Eye Exam: EOMI, PERRL. absent: Scleral icterus - ENT Exam ENT Exam: Mucous Membranes Dry, Normal External Ear Exam - Neck Exam Neck exam: Negative for: Lymphadenopathy - Respiratory Exam Respiratory Exam: Decreased Breath Sounds - Cardiovascular Exam Cardiovascular Exam: REGULAR RHYTHM - GI/Abdominal Exam GI & Abdominal Exam: Diminished Bowel Sounds, Soft. absent: Tenderness - Rectal Exam Rectal Exam: Deferred - Exam Exam: NORMAL INSPECTION - Extremities Exam Extremities exam: Positive for: pedal edema, tenderness, pedal pulses present. Negative for: calf tenderness Additional comments: right foot in dressing s/p 4th toe/ metatarsal amp - Back Exam Back exam: absent: CVA tenderness (L), CVA tenderness (R) - Neurological Exam Neurological exam: Alert, CN II-XII Intact, Oriented x3, Reflexes Normal - Psychiatric Exam Psychiatric exam: Normal Mood - Skin Skin Exam: Dry Results - Vital Signs Recent Vital Signs: Last Vital Signs Temp 97.4 F L 07/05/18 17:00 Pulse 68 08/26/17 17:00 Resp 18 08/26/17 17:00 BP 144/88 08/26/17 17:00 Pulse Ox 99 08/26/17 17:00 - Labs Result Diagrams: 08/25/17 11:01 08/26/17 05:15 Labs: Laboratory Results - last 24 hr 08/25/17 08/26/17 08/26/17 21:09 05:15 05:15 Sodium 137 Potassium 4.1 Chloride 98 Carbon Dioxide 34 H Anion Gap 9 L BUN 11 Creatinine 0.8 Est GFR ( Amer) > 60 Est GFR (Non-Af Amer) > 60 POC Glucose (mg/dL) 220 H Random Glucose 285 H Calcium 9.1 Total Bilirubin 0.4 AST 32 ALT 22 Alkaline Phosphatase 66 Total Protein 6.6 Albumin 3.4 L Globulin 3.2 Albumin/Globulin Ratio 1.0 Triglycerides 86 D Cholesterol 174 LDL Cholesterol Direct 133 H HDL Cholesterol 18 L Vancomycin Trough 6.1 08/26/17 08/26/17 08/26/17 06:09 11:05 12:50 Sodium Potassium Chloride Carbon Dioxide Anion Gap BUN Creatinine Est GFR ( Amer) Est GFR (Non-Af Amer) POC Glucose (mg/dL) 265 H 243 H 251 H Random Glucose Calcium Total Bilirubin AST ALT Alkaline Phosphatase Total Protein Albumin Globulin Albumin/Globulin Ratio Triglycerides Cholesterol LDL Cholesterol Direct HDL Cholesterol Vancomycin Trough 08/26/17 15:57 Sodium Potassium Chloride Carbon Dioxide Anion Gap BUN Creatinine Est GFR ( Amer) Est GFR (Non-Af Amer) POC Glucose (mg/dL) 280 H Random Glucose Calcium Total Bilirubin AST ALT Alkaline Phosphatase Total Protein Albumin Globulin Albumin/Globulin Ratio Triglycerides Cholesterol LDL Cholesterol Direct HDL Cholesterol Vancomycin Trough Assessment & Plan (1) Diabetic infection of right foot Status: Acute Priority: High (2) Cellulitis in diabetic foot Status: Acute Priority: High (3) Insulin dependent diabetes mellitus Status: Acute Priority: Medium (4) Osteomyelitis Status: Acute Priority: High (5) PVD (peripheral vascular disease) Status: Acute Priority: Medium - Assessment and Plan (Free Text) Assessment: await OR cultures may be a candidate for [place] cont wound care if swelling rigfht groin persists need to have LN Bx ( Hx + for Melanoma right leg )
--- NOTE | 2017-08-26 20:38 | PN ---
DATE: 08/26/2017 ENDOCRINOLOGY FOLLOWUP NOTE LOCATION: Room 663. SUBJECTIVE: This is a 67-year-old male with recent uncontrolled type 2 insulin-requiring diabetes, presenting here with right foot cellulitis and possible gas gangrene, and currently receiving intensive IV antibiotic management and local debridement as noted, and is being followed now for metabolic management. His glycemic levels are still fluctuating but improved as noted overnight with glucose levels ranging from 243 to 251 and 265 mg/dL. His latest chemistry showed a BUN of 11, sodium 137, potassium 4.1, chloride 98, CO2 of 34, glucose 285, and creatinine 0.8. His hemoglobin A1c is 8.8% which is still elevated despite the upper mentioned high dose insulin regimen as given. ASSESSMENT: This is a 67-year-old male with uncontrolled and decompensated type 2 insulin-requiring diabetes, presenting here with right foot cellulitis with associated increased insulin resistance thereof, and further impaired glucose tolerance with diabetic microvascular complications of retinopathy and polyneuropathy as noted. He also has underlying severe peripheral arterial disease and vasculopathy as noted. PLAN OF MANAGEMENT: We will modify his current basal and bolus insulin regimen to optimize metabolic control. We will titrate and increase his Humalog to 30 units subcu t.i.d. before meals to start today as ordered. We will also increase the Levemir to 70 units subcu at bedtime daily to start tonight. We will titrate incrementally as indicated to optimize metabolic control. We will obtain serial chemistries and supplement accordingly needed. We will also continue the low-dose correction scale using Humalog insulin as given. We will follow with you. Nanette Blake MD
[2017-08-26] MEDS: Insulin Detemir 100 Units/ml Inj SC SCH (22:41)
[2017-08-27] MEDS: Piperacillin/Tazobact 3.375 GM in Sodium Chloride 0.9% 100 ML IVPB SCH ×4 (04:43→22:38)
--- NOTE | 2017-08-27 07:56 | CP.PCM.PN ---
Subjective - Date & Time of Evaluation Date of Evaluation: 08/27/17 Time of Evaluation: 07:52 - Subjective Subjective: Podiatry progress note Dr. Oneil, 67 yo male seen at bedside s/p 1 day right fouth digit and partial met amputation, and left 2nd digit hammertoe correction. Patient is seen resting comfortably and is in no acute distress. AAO x3. Patient denies any pain to his feet. Patients right foot dressing soaked in serosanguinous drainage, and intact with the surgical shoe on. Patients left foot dressing was not intact, and surgical site was open to air. Patient denies any acute overnight events. Patient denies f/n/v/sob/chills. Objective - Vital Signs/Intake and Output Vital Signs (last 24 hours): Temp Pulse Resp BP Pulse Ox 98.3 F 72 18 142/82 98 08/27/17 05:00 08/27/17 05:00 08/27/17 05:00 08/27/17 05:00 08/27/17 05:00 - Medications Medications: Current Medications Acetaminophen (Tylenol 325mg Tab) 650 mg PO Q4 PRN PRN Reason: Pain, Mild (1-3) Enoxaparin Sodium (Lovenox) 40 mg SC DAILY [facility] PRN Reason: Protocol Last Admin: 08/25/17 08:54 Dose: 40 mg Hydromorphone HCl (Dilaudid) 0.5 mg IVP Q15M PRN PRN Reason: Pain, moderate (4-7) Stop: 08/27/17 11:04 Vancomycin HCl 1 gm/ Sodium (Chloride) 250 mls @ 166.667 mls/hr IVPB Q12H [facility] PRN Reason: Protocol Last Admin: 08/26/17 21:13 Dose: 166.667 mls/hr Piperacillin Sod/Tazobactam (Sod 3.375 gm/ Sodium Chloride) 100 mls @ 100 mls/ hr IVPB Q6H [facility] PRN Reason: Protocol Last Admin: 08/27/17 04:43 Dose: 100 mls/hr Sodium Chloride (Sodium Chloride 0.9%) 1,000 mls @ 75 mls/hr IV .[id number] PRN PRN Reason: Hypotension Insulin Detemir (Levemir) 70 units SC [facility] Last Admin: 08/26/17 22:41 Dose: 70 units Insulin Human Lispro (Humalog) 0 units SC ACHS [facility] PRN Reason: Protocol Last Admin: 08/26/17 22:43 Dose: Not Given Insulin Human Lispro (Humalog) 30 units SC TIDAC [facility] Last Admin: 08/26/17 17:04 Dose: 30 units Lactobacillus Acidophilus (Bacid Acidophilus) 1 cap PO DAILY [facility] Last Admin: 08/26/17 12:45 Dose: 1 cap Multivitamins/Minerals (Therapeutic-M Tab) 1 tab PO DAILY [facility] Last Admin: 08/26/17 12:46 Dose: 1 tab Oxycodone/Acetaminophen (Percocet 5/325 Mg Tab) 1 tab PO Q4 PRN PRN Reason: Pain, moderate (4-7) Stop: 08/29/17 11:08 Oxycodone/Acetaminophen (Percocet 5/325 Mg Tab) 2 tab PO Q4 PRN PRN Reason: Pain, severe (8-10) Stop: 08/29/17 11:08 Valsartan (Diovan) 80 mg PO DAILY [facility] Last Admin: 08/26/17 23:33 Dose: 80 mg Vitamin D (Vitamin D 400 Intl Units Tab) 400 intlu PO DAILY [facility] Last Admin: 08/26/17 12:46 Dose: 400 intlu - Labs Labs: 08/25/17 11:01 08/26/17 05:15 PT 12.3 Seconds (9.8-13.1) 08/24/17 15:53 INR 1.1 (0.9-1.2) 08/24/17 15:53 APTT 29.1 Seconds (25.6-37.1) 08/24/17 15:53 - Constitutional Appears: Well, Non-toxic, No Acute Distress - Head Exam Head Exam: ATRAUMATIC, NORMOCEPHALIC - Extremities Exam Additional comments: Bilateral lower extremity exam: Derm: Right: s/p 1 day fourth ray amputation- 100% granular tissue noted, no malodor, no tunneling or tracking noted, mild serosanguinous drainage, minimal periwound erythema and edema Left: sutures are intact on dorsal aspect of 2nd PIPJ and MPJ. Surigcal site well coapted, no signs of dehiscence, no malodor, no drainage, no clinical signs of infection noted. Vascular: DP/PT pulses are palpable 2/4, CFT <3 secs x8, TG warm to warm, minimal edema and erythema noted on the right lateral aspect of the forefoot and left 2nd ray. no other lesions noted. MSK: no pain on palpation to the surgical site b/l. - Neurological Exam Neurological Exam: Alert, Awake, Oriented x3 - Psychiatric Exam Psychiatric exam: Normal Affect - Skin Skin Exam: Normal Color Assessment and Plan - Assessment and Plan (Free Text) Assessment: 67 yo male 1 day s/p right fourth digit and partial metatarsal amputation and left 2nd digit hammertoe. Plan: Patient seen and evaluated Plan discussed with the attending, Dr. Oneil Chart, labs and vitals reviewed. Afebrile WBC 7.2 X-ray 08/26: satisfactory post op results OR Wound Cx: Strep Viridans OR Patholog: Pending Patients right foot packing advanced and wound dressed with xeroform, ABD and DSD Patients left foot dressed with xeroform, DSD and TRACY. Patient advised to wear the surgical shoe at all times. Podiatry will follow the patient while in house.
--- NOTE | 2017-08-27 08:21 | OP ---
PROCEDURE DATE: 08/26/2017 SURGEON: Jurgen Olmedo DPM ASSISTANTS: Bandar Newman, PGY-2; Jarod Tello, PGY-1 ANESTHESIOLOGIST: Dr. De La Cruz. TYPE OF ANESTHESIA: IV sedation with local. PREOPERATIVE DIAGNOSES: Diabetic foot ulceration on the plantar right foot and diabetic ulceration of right fourth digit; also dorsal ulceration of left second digit with hammertoe deformity. POSTOPERATIVE DIAGNOSES: Diabetic foot ulceration on the plantar right foot and diabetic ulceration of right fourth digit; also dorsal ulceration of left second digit with hammertoe deformity. NAME OF PROCEDURE: 1. Partial right fourth ray amputation with amputation of entire fourth digit and debridement of all nonviable soft tissue and bone. 2. Correction of hammertoe deformity with primary closure of dorsal left second digit ulceration site. INDICATIONS: The patient is a 67-year-old male with the above diagnosis. The patient has exhausted all conservative treatment at this time and now requires surgical intervention. The patient signed the consent after careful explanation of the risks, benefits, complications, and alternatives for surgical procedure. No guarantees were given nor implied. NPO status was confirmed prior to taking the patient to the OR. PREPARATION: The patient was brought into the operating room and placed on the operating room table in a supine position. Time-out was performed for identification of the correct patient and procedure. After induction of IV sedation, the patient received a total of 25 mL of 1% lidocaine plain and 0.5% Marcaine plain distributed across both the right foot ulceration site and the left second digit ulceration site. Both lower extremities were then prepped and draped in a normal sterile manner and the procedure began. A tourniquet was used on the left foot at the entirety of procedure at a setting of 250 mmHg. DESCRIPTION OF PROCEDURE: PROCEDURE 1: Attention was then turned to the left second digit where it is noted that a clinically uninfected dorsal ulceration measuring approximately 2 mm in diameter was found at the proximal interphalangeal joint level. This ulceration site was found to probe to bone preoperatively. Using a fresh #15 blade, a linear incision was made through the ulceration site down to the level of subcutaneous tissue. Utilizing a separate #15 blade and pickups, the superficial skin was undermined both medially and laterally, and the underlying extensor digitorum longus tendon was identified and transected in a transverse manner at the level of the proximal interphalangeal joint. The joint was then identified and all soft tissue was removed from the joint itself using the same #15 blade. Utilizing set of pickups and a micro sagittal saw, the head of the proximal phalanx was then resected and removed from the field. The area was then explored and all nonviable soft tissue was sharply and excisionally debrided from the field. The area was then flushed with copious amounts of normal sterile saline and was primarily closed with 3-0 Vicryl deep and 3-0 Prolene superficially. The site was then dressed with Xeroform, 4 x 4 gauze, Kerlix and Coban. A #15 blade was utilized to perform a percutaneous tenotomy of the extensor digitorum longus tendon at the level of the metatarsophalangeal joint of the second digit as well. PROCEDURE 2: Attention was then turned to the right foot where it was noted that a circular plantar diabetic ulceration measuring roughly 1.5 cm in diameter and probing directly to the bone was noted as well as an erythematous, edematous and hyperpigmented right fourth digit. Previous evidence of amputation to the right foot including a missing fifth digit as well as a shortened hallux were also noted. Utilizing a fresh # 15 blade, a fish-mouth incision was made around the entire right fourth digit down to the level of bone. Utilizing sharp towel clamps and the same #15 blade, the fourth digit was disarticulated at the metatarsophalangeal joint and sent to Pathology for pathological examination. Attention was then turned to the right plantar ulcer where the right fourth metatarsal head could be visualized. Utilizing bone cutters and rongeur, the metatarsal head was removed through the ulceration site and also sent to pathology for pathological examination. The rongeur was then utilized to remove any and all remaining non-viable bone in the area. Utilizing a pulse lavage, attention was then turned back to the amputation site where 3 liters of normal saline was used to copiously flush out the amputation site as well as the ulceration site. Following the pulse lavage, quarter inch iodoform packing was packed into the amputation site area and the site was dressed with Xeroform, 4 x 4 gauze, ABD pads, Kerlix, and TRACY bandage and the procedure was concluded. POSTOPERATIVE CONDITION: The patient tolerated the anesthesia and procedure well and was escorted to the recovery room with vital signs stable and neurovascular status intact to bilateral lower extremities. The patient is to remain weightbearing as tolerated to bilateral heels in surgical shoes. The patient will remain in-house for the time being and Podiatry will continue to follow while he is in-house. Upon discharge from the hospital, the patient has been given instructions to follow up Dr. Olmedo in the wound care center within one week. Bandar Newman DPM Jurgen Olmedo DPM MTDD
[2017-08-27] MEDS: Lactobacillus Acidophilus 500 MU Cap PO SCH (09:51)
[2017-08-27] MEDS: Insulin Lispro (humaLOG) 100 Units/ml Inj SC SCH ×7 (09:53→22:21)
[2017-08-27] MEDS: Enoxaparin 40 mg Syringe SC SCH (09:54)
[2017-08-27] MEDS: Cholecalciferol 400 Intl Units Tab PO SCH (09:54)
[2017-08-27] MEDS: Multivitamin With Minerals Tab PO SCH (09:54)
--- NOTE | 2017-08-27 13:15 | CP.PCM.PN ---
Subjective - Date & Time of Evaluation Date of Evaluation: 08/27/17 Time of Evaluation: 07:00 - Subjective Subjective: appears comfortable in NAD s/p 4th ray amp right foot Objective - Vital Signs/Intake and Output Vital Signs (last 24 hours): Temp Pulse Resp BP Pulse Ox 98.2 F 67 20 128/76 96 08/27/17 08:03 08/27/17 08:03 08/27/17 08:03 08/27/17 08:03 08/27/17 08:03 - Medications Medications: Current Medications Acetaminophen (Tylenol 325mg Tab) 650 mg PO Q4 PRN PRN Reason: Pain, Mild (1-3) Enoxaparin Sodium (Lovenox) 40 mg SC DAILY [facility] PRN Reason: Protocol Last Admin: 08/27/17 09:54 Dose: 40 mg Vancomycin HCl 1 gm/ Sodium (Chloride) 250 mls @ 166.667 mls/hr IVPB Q12H [facility] PRN Reason: Protocol Last Admin: 08/27/17 11:07 Dose: 166.667 mls/hr Piperacillin Sod/Tazobactam (Sod 3.375 gm/ Sodium Chloride) 100 mls @ 100 mls/ hr IVPB Q6H [facility] PRN Reason: Protocol Last Admin: 08/27/17 11:06 Dose: 100 mls/hr Sodium Chloride (Sodium Chloride 0.9%) 1,000 mls @ 75 mls/hr IV .[id number] PRN PRN Reason: Hypotension Insulin Detemir (Levemir) 70 units SC HS [facility] Last Admin: 08/26/17 22:41 Dose: 70 units Insulin Human Lispro (Humalog) 0 units SC ACHS [facility] PRN Reason: Protocol Last Admin: 08/27/17 09:53 Dose: Not Given Insulin Human Lispro (Humalog) 30 units SC TIDAC [facility] Last Admin: 08/27/17 09:53 Dose: 30 units Lactobacillus Acidophilus (Bacid Acidophilus) 1 cap PO DAILY [facility] Last Admin: 08/27/17 09:51 Dose: 1 cap Multivitamins/Minerals (Therapeutic-M Tab) 1 tab PO DAILY [facility] Last Admin: 08/27/17 09:54 Dose: 1 tab Oxycodone/Acetaminophen (Percocet 5/325 Mg Tab) 1 tab PO Q4 PRN PRN Reason: Pain, moderate (4-7) Stop: 08/29/17 11:08 Oxycodone/Acetaminophen (Percocet 5/325 Mg Tab) 2 tab PO Q4 PRN PRN Reason: Pain, severe (8-10) Stop: 08/29/17 11:08 Valsartan (Diovan) 80 mg PO DAILY [facility] Last Admin: 08/27/17 09:52 Dose: 80 mg Vitamin D (Vitamin D 400 Intl Units Tab) 400 intlu PO DAILY [facility] Last Admin: 08/27/17 09:54 Dose: 400 intlu - Labs Labs: 08/25/17 11:01 08/26/17 05:15 PT 12.3 Seconds (9.8-13.1) 08/24/17 15:53 INR 1.1 (0.9-1.2) 08/24/17 15:53 APTT 29.1 Seconds (25.6-37.1) 08/24/17 15:53 - Constitutional Appears: Non-toxic, Chronically Ill - Head Exam Head Exam: NORMOCEPHALIC - Eye Exam Eye Exam: PERRL - ENT Exam ENT Exam: Mucous Membranes Dry - Neck Exam Neck Exam: absent: Lymphadenopathy - Respiratory Exam Respiratory Exam: Decreased Breath Sounds, Clear to Ausculation Bilateral - Cardiovascular Exam Cardiovascular Exam: REGULAR RHYTHM - GI/Abdominal Exam GI & Abdominal Exam: Distended - Rectal Exam Rectal Exam: Deferred - Exam Exam: NORMAL INSPECTION - Extremities Exam Extremities Exam: absent: Calf Tenderness, Tenderness Additional comments: Derm: Right: s/p 1 day fourth ray amputation- 100% granular tissue noted, no malodor, no tunneling or tracking noted, mild serosanguinous drainage, minimal periwound erythema and edema Left: sutures are intact on dorsal aspect of 2nd PIPJ and MPJ. Surigcal site well coapted, no signs of dehiscence, no malodor, no drainage, no clinical signs of infection noted. Vascular: DP/PT pulses are palpable 2/4, CFT <3 secs x8, TG warm to warm, minimal edema and erythema noted on the right lateral aspect of the forefoot and left 2nd ray. no other lesions noted. MSK: no pain on palpation to the surgical site b/l. - Back Exam Back Exam: absent: CVA tenderness (L), CVA tenderness (R) - Neurological Exam Neurological Exam: Alert, Awake, CN II-XII Intact, Oriented x3 Neuro motor strength exam: Left Upper Extremity: 4, Right Upper Extremity: 4, Left Lower Extremity: 4, Right Lower Extremity: 4 - Psychiatric Exam Psychiatric exam: Normal Mood - Skin Skin Exam: Dry Assessment and Plan (1) Diabetic infection of right foot Status: Acute (2) Cellulitis in diabetic foot Status: Acute (3) Insulin dependent diabetes mellitus Status: Acute (4) Osteomyelitis Status: Acute (5) PVD (peripheral vascular disease) Status: Acute - Assessment and Plan (Free Text) Assessment: strep from wound in OR staph from superficial c/s aqait sensitivities cont current rx
--- NOTE | 2017-08-27 13:56 | PCM.SURG1 ---
Surgeon's Initial Post Op Note - Surgeon's Notes Surgeon: Alexander Valdez MD Forms Designer: NONE Type of Anesthesia: Local Pre-Operative Diagnosis: Infection Operative Findings: Patent right basilic vein. Post-Operative Diagnosis: Infection Operation Performed: Single lumen picc placement right basilic vein, 37 cm. Tip is in the SVC. Specimen/Specimens Removed: NOne Estimated Blood Loss: EBL {In ML}: 2 Blood Products Given: N/A Drains Used: No Drains Post-Op Condition: Fair Date of Surgery/Procedure: 08/27/17 Time of Surgery/Procedure: 13:50
--- NOTE | 2017-08-27 14:25 | VASCULAR ---
PROCEDURE: Date of procedure: 08/27/2017 Procedure: 1. Placement of a right arm PICC with ultrasound and fluoroscopic guidance, CPT 43940 2. PICC tip confirmation with spot radiograph and is in the superior vena cava Medications: 2cc 1 percent lidocaine Total Fluoro time:2.8 seconds Radiation: 0.48 mGy EBL: 2 cc HISTORY: Infection requiring long-term IV antibiotics TECHNIQUE: Following informed consent and procedure time-out, the patient was placed supine on the interventional table and the right arm prepped and draped in the usual sterile fashion. Ultrasound showed a patent and compressible right basilic vein. After the skin was anesthetized with lidocaine, the basilic vein was accessed with micro micropuncture technique using ultrasound guidance. A guidewire was then advanced under fluoroscopic guidance into the superior vena cava. An image documenting ultrasound guidance for vascular access was permanently saved. The length of the single-lumen 4 [place] PICC was trimmed to 37 centimeters and advanced through a peel-away sheath. The PICC was position with tip of PICC confirm a spot radiograph the superior vena cava. The PICC was secured to the patient's skin. The PICC was flushed. A biopatch and sterile dressing was applied. IMPRESSION: Placement of a single-lumen 4 [place] PICC trimmed to 37 centimeters via right basilic vein. The tip of the PICC is confirmed with spot radiograph and is in the superior vena cava.
--- NOTE | 2017-08-27 20:17 | PN ---
DATE: 08/27/2017 ENDO FOLLOWUP NOTE LOCATION: In room 668. SUBJECTIVE: This is a 67-year-old male with recent uncontrolled type 2 insulin-requiring diabetes, presenting here with right foot neuropathic ulceration with gas gangrene in the right fourth toe area whereupon he had the toe amputation undertaken thereof with his inpatient stay at this time. His glycemic levels are fluctuating as expected with the increased insulin resistance thereof from the intercurrent infection as noted. His glucose values have ranged today from 238 to 254 mg/dL. His bedtime glucose was 325 as noted. His hemoglobin A1c is 8.8%. The latest chemistries shows BUN of 11, sodium 137, potassium 4.1, chloride 98, CO2 of 34, glucose 285, and creatinine 0.8. ASSESSMENT: This is a 67-year-old male with uncontrolled and decompensated type 2 insulin-requiring diabetes with marked hyperglycemic accelerations with the intercurrent right foot cellulitis and nonhealing neuropathic ulcerations as noted with underlying peripheral arterial disease and vasculopathy. PLAN OF MANAGEMENT: We will modify once again his basal and bolus insulin regimen and increase the Humalog to 34 units subcu t.i.d. before meals to start at dinnertime today as ordered. We will continue the same Humalog coverage scale at the low dose algorithm to obviate hypoglycemia and detailed orders have been given. We will also continue the same basal insulin given as Levemir at 70 units subcu at bedtime daily as given. We will titrate incrementally as indicated to optimize metabolic control. We will follow. Nanette Blake MD
[2017-08-27] MEDS: Insulin Detemir 100 Units/ml Inj SC SCH (22:39)
--- NOTE | 2017-08-27 23:52 | CP.PCM.PN ---
Subjective - Date & Time of Evaluation Date of Evaluation: 08/27/17 Time of Evaluation: 23:15 Objective - Vital Signs/Intake and Output Vital Signs (last 24 hours): Temp Pulse Resp BP Pulse Ox 97.9 F 62 20 135/83 97 08/27/17 16:04 08/27/17 16:04 08/27/17 16:04 08/27/17 16:04 08/27/17 16:04 - Medications Medications: Current Medications Acetaminophen (Tylenol 325mg Tab) 650 mg PO Q4 PRN PRN Reason: Pain, Mild (1-3) Enoxaparin Sodium (Lovenox) 40 mg SC DAILY [facility] PRN Reason: Protocol Last Admin: 08/27/17 09:54 Dose: 40 mg Vancomycin HCl 1 gm/ Sodium (Chloride) 250 mls @ 166.667 mls/hr IVPB Q12H [facility] PRN Reason: Protocol Last Admin: 08/27/17 19:55 Dose: 166.667 mls/hr Piperacillin Sod/Tazobactam (Sod 3.375 gm/ Sodium Chloride) 100 mls @ 100 mls/ hr IVPB Q6H [facility] PRN Reason: Protocol Last Admin: 08/27/17 22:38 Dose: 100 mls/hr Sodium Chloride (Sodium Chloride 0.9%) 1,000 mls @ 75 mls/hr IV .[id number] PRN PRN Reason: Hypotension Insulin Detemir (Levemir) 70 units SC HS [facility] Last Admin: 08/27/17 22:39 Dose: 70 units Insulin Human Lispro (Humalog) 0 units SC ACHS [facility] PRN Reason: Protocol Last Admin: 08/27/17 22:21 Dose: Not Given Insulin Human Lispro (Humalog) 34 units SC TIDAC [facility] Last Admin: 08/27/17 16:48 Dose: 34 units Lactobacillus Acidophilus (Bacid Acidophilus) 1 cap PO DAILY [facility] Last Admin: 08/27/17 09:51 Dose: 1 cap Multivitamins/Minerals (Therapeutic-M Tab) 1 tab PO DAILY [facility] Last Admin: 08/27/17 09:54 Dose: 1 tab Oxycodone/Acetaminophen (Percocet 5/325 Mg Tab) 1 tab PO Q4 PRN PRN Reason: Pain, moderate (4-7) Stop: 08/29/17 11:08 Oxycodone/Acetaminophen (Percocet 5/325 Mg Tab) 2 tab PO Q4 PRN PRN Reason: Pain, severe (8-10) Stop: 08/29/17 11:08 Valsartan (Diovan) 80 mg PO DAILY [facility] Last Admin: 08/27/17 09:52 Dose: 80 mg Vitamin D (Vitamin D 400 Intl Units Tab) 400 intlu PO DAILY [facility] Last Admin: 08/27/17 09:54 Dose: 400 intlu - Labs Labs: 08/25/17 11:01 08/26/17 05:15 PT 12.3 Seconds (9.8-13.1) 08/24/17 15:53 INR 1.1 (0.9-1.2) 08/24/17 15:53 APTT 29.1 Seconds (25.6-37.1) 08/24/17 15:53 Assessment and Plan (1) Diabetic infection of right foot Status: Acute (2) Diabetes mellitus with hyperglycemia Status: Acute (3) PVD (peripheral vascular disease) Status: Acute (4) DVT prophylaxis Status: Inactive
[2017-08-28] MEDS: Piperacillin/Tazobact 3.375 GM in Sodium Chloride 0.9% 100 ML IVPB SCH ×4 (05:48→23:11)
[2017-08-28] MEDS: Insulin Lispro (humaLOG) 100 Units/ml Inj SC SCH ×7 (07:35→22:50)
[2017-08-28 07:39] LABS: MEAN CELL VOLUME 99.2 fl (80.0-94.0); MEAN CORPUSCULAR HGB CONC 34.3 g/dL (33.0-37.0); RBC 3.81 Mil/uL (4.40-5.90); RED CELL DISTRIBUTION WIDTH 13.5 % (11.5-14.5); WHITE BLOOD COUNT 6.7 K/uL (4.8-10.8)
[2017-08-28 07:46] LABS: BLOOD UREA NITROGEN 12 mg/dl (9-20); CALCIUM 9.2 mg/dL (8.4-10.2); GFR AFRICAN-AMERICAN > 60; GFR NON-AFRICAN AMERICAN > 60
[2017-08-28] MEDS: Lactobacillus Acidophilus 500 MU Cap PO SCH (09:00)
[2017-08-28] MEDS: Enoxaparin 40 mg Syringe SC SCH (09:02)
[2017-08-28] MEDS: Cholecalciferol 400 Intl Units Tab PO SCH (09:03)
[2017-08-28] MEDS: Multivitamin With Minerals Tab PO SCH (09:03)
--- NOTE | 2017-08-28 15:13 | PN ---
DATE: 08/28/2017 ENDO FOLLOWUP NOTE LOCATION: In room 668. SUBJECTIVE: This is a 67-year-old male with recent uncontrolled type 2 insulin-requiring diabetes, presenting here with right foot cellulitis and severe gangrenous changes of the right fourth toe with underlying peripheral arterial vasculopathy and is now being followed closely for metabolic management. He underwent a recent amputation of the right fourth toe this past week as noted. He has ongoing IV antibiotic management for underlying right foot cellulitis as noted. His glycemic levels are fluctuating, but much improved at this time and the latest glucose levels overnight have ranged from 106 to 169 mg/dL. His chemistry showed a BUN of 12, sodium 141, potassium 3.7, chloride 101, CO2 of 31, glucose 113 and creatinine 0.8. His hemoglobin A1c is 8.8%. ASSESSMENT AND PLAN: So at this time, we will continue the same basal and bolus insulin regimen, which was modified yesterday to optimize metabolic control. We will continue the Levemir given as 70 units subcutaneously at bedtime daily as given. We will also continue the Humalog given as 34 units subcutaneously t.i.d. before meals as ordered. We will titrate incrementally as indicated to optimize metabolic control. We will continue also the same low dose coverage scale with Humalog insulin to obviate hypoglycemia and detailed orders have been given. We will obtain serial chemistries and supplement accordingly needed. We will follow. Nanette Blake MD
--- NOTE | 2017-08-28 15:31 | CP.PCM.PN ---
Subjective - Date & Time of Evaluation Date of Evaluation: 08/28/17 Time of Evaluation: 15:28 - Subjective Subjective: Podiatry progress note for attending Dr. Oneil, 67 yo male seen at bedside s/p 2 day right fourth digit and partial met amputation, and left 2nd digit hammertoe correction. Patient is seen resting comfortably in bed and is in no acute distress. Patient is AAO x3. Patient denies any pain to his feet. Strike through noted at the patients right foot dressing, a Patients left foot dressing was not intact, and surgical site was open to air. Patient denies any acute overnight events. Patient denies F/N/V/C or SOB. Patient denies any other pedal complain.. Objective - Vital Signs/Intake and Output Vital Signs (last 24 hours): Temp Pulse Resp BP Pulse Ox 98.2 F 62 19 162/89 H 96 08/28/17 08:06 08/28/17 08:06 08/28/17 08:06 08/28/17 08:06 08/28/17 08:06 - Medications Medications: Current Medications Acetaminophen (Tylenol 325mg Tab) 650 mg PO Q4 PRN PRN Reason: Pain, Mild (1-3) Enoxaparin Sodium (Lovenox) 40 mg SC DAILY [facility] PRN Reason: Protocol Last Admin: 08/28/17 09:02 Dose: 40 mg Vancomycin HCl 1 gm/ Sodium (Chloride) 250 mls @ 166.667 mls/hr IVPB Q12H [facility] PRN Reason: Protocol Last Admin: 08/28/17 08:59 Dose: 166.667 mls/hr Piperacillin Sod/Tazobactam (Sod 3.375 gm/ Sodium Chloride) 100 mls @ 100 mls/ hr IVPB Q6H [facility] PRN Reason: Protocol Last Admin: 08/28/17 11:05 Dose: 100 mls/hr Sodium Chloride (Sodium Chloride 0.9%) 1,000 mls @ 75 mls/hr IV .[id number] PRN PRN Reason: Hypotension Insulin Detemir (Levemir) 70 units SC HS [facility] Last Admin: 08/27/17 22:39 Dose: 70 units Insulin Human Lispro (Humalog) 0 units SC ACHS [facility] PRN Reason: Protocol Last Admin: 08/28/17 11:06 Dose: Not Given Insulin Human Lispro (Humalog) 34 units SC TIDAC [facility] Last Admin: 08/28/17 11:06 Dose: 34 units Lactobacillus Acidophilus (Bacid Acidophilus) 1 cap PO DAILY [facility] Last Admin: 08/28/17 09:00 Dose: 1 cap Multivitamins/Minerals (Therapeutic-M Tab) 1 tab PO DAILY [facility] Last Admin: 08/28/17 09:03 Dose: 1 tab Oxycodone/Acetaminophen (Percocet 5/325 Mg Tab) 1 tab PO Q4 PRN PRN Reason: Pain, moderate (4-7) Stop: 08/29/17 11:08 Oxycodone/Acetaminophen (Percocet 5/325 Mg Tab) 2 tab PO Q4 PRN PRN Reason: Pain, severe (8-10) Stop: 08/29/17 11:08 Valsartan (Diovan) 80 mg PO DAILY [facility] Last Admin: 08/28/17 09:01 Dose: 80 mg Vitamin D (Vitamin D 400 Intl Units Tab) 400 intlu PO DAILY [facility] Last Admin: 08/28/17 09:03 Dose: 400 intlu - Labs Labs: 08/28/17 06:30 08/28/17 06:30 PT 12.3 Seconds (9.8-13.1) 08/24/17 15:53 INR 1.1 (0.9-1.2) 08/24/17 15:53 APTT 29.1 Seconds (25.6-37.1) 08/24/17 15:53 - Constitutional Appears: Well, Non-toxic, No Acute Distress - Head Exam Head Exam: ATRAUMATIC, NORMOCEPHALIC - Extremities Exam Additional comments: Bilateral lower extremity focused exam: Vascular: DP/PT pulses are palpable 2/4, CFT <3 secs x8, TG warm to warm, minimal edema and erythema noted on the right lateral aspect of the forefoot and left 2nd ray. Neuro: Gross sensation intact. Derm: Right: 2 days s/p fourth ray amputation- 100% granular tissue noted, no malodor, no tunneling or tracking noted, mild Serous drainage, minimal luz- wound erythema and edema. Packing still in place. Left: Wound is clean, Dry, sutures are intact on dorsal aspect of 2nd PIPJ and MPJ. Surigcal site well coapted, no signs of dehiscence, no malodor, no drainage , no clinical signs of infection noted. MSK: no pain on palpation to the surgical site b/l. - Neurological Exam Neurological Exam: Alert, Awake, Oriented x3 - Psychiatric Exam Psychiatric exam: Normal Affect, Normal Mood Assessment and Plan - Assessment and Plan (Free Text) Assessment: 67 yo male 2 days s/p right fourth digit and partial metatarsal amputation and left 2nd digit hammertoe correction. Plan: Patient seen and evaluated Plan discussed with the attending, Dr. Oneil Chart, labs and vitals reviewed. Afebrile, WBC 6.7 X-ray 08/26: satisfactory post op results OR Wound Cx: Strep Viridans OR Patholog: Still Pending Patients right foot packing kept in place and wound dressed with ABD and DSD and Romeo bandage Patients left foot dressing reinforced. Patient advised to wear the surgical shoe at all times. Podiatry will follow the patient while in house.
[2017-08-28] MEDS: Insulin Detemir 100 Units/ml Inj SC SCH (22:00)
[2017-08-29] MEDS: Piperacillin/Tazobact 3.375 GM in Sodium Chloride 0.9% 100 ML IVPB SCH ×3 (05:45→16:47)
[2017-08-29] MEDS: Insulin Lispro (humaLOG) 100 Units/ml Inj SC SCH ×7 (07:32→23:03)
--- NOTE | 2017-08-29 09:22 | CP.PCM.PN ---
Subjective - Date & Time of Evaluation Date of Evaluation: 08/28/17 Time of Evaluation: 08:15 Objective - Vital Signs/Intake and Output Vital Signs (last 24 hours): Temp Pulse Resp BP Pulse Ox 98.0 F 66 19 142/80 97 08/29/17 07:56 08/29/17 07:56 08/29/17 07:56 08/29/17 07:56 08/29/17 07:56 - Medications Medications: Current Medications Acetaminophen (Tylenol 325mg Tab) 650 mg PO Q4 PRN PRN Reason: Pain, Mild (1-3) Last Admin: 08/28/17 18:16 Dose: 650 mg Enoxaparin Sodium (Lovenox) 40 mg SC DAILY [facility] PRN Reason: Protocol Last Admin: 08/28/17 09:02 Dose: 40 mg Vancomycin HCl 1 gm/ Sodium (Chloride) 250 mls @ 166.667 mls/hr IVPB Q12H [facility] PRN Reason: Protocol Last Admin: 08/28/17 20:30 Dose: 166.667 mls/hr Piperacillin Sod/Tazobactam (Sod 3.375 gm/ Sodium Chloride) 100 mls @ 100 mls/ hr IVPB Q6H [facility] PRN Reason: Protocol Last Admin: 08/29/17 05:45 Dose: 100 mls/hr Sodium Chloride (Sodium Chloride 0.9%) 1,000 mls @ 75 mls/hr IV .[id number] PRN PRN Reason: Hypotension Insulin Detemir (Levemir) 70 units SC HS [facility] Last Admin: 08/28/17 22:00 Dose: 70 units Insulin Human Lispro (Humalog) 0 units SC ACHS [facility] PRN Reason: Protocol Last Admin: 08/28/17 22:50 Dose: Not Given Insulin Human Lispro (Humalog) 34 units SC TIDAC [facility] Last Admin: 08/28/17 16:49 Dose: 34 units Lactobacillus Acidophilus (Bacid Acidophilus) 1 cap PO DAILY [facility] Last Admin: 08/28/17 09:00 Dose: 1 cap Multivitamins/Minerals (Therapeutic-M Tab) 1 tab PO DAILY [facility] Last Admin: 08/28/17 09:03 Dose: 1 tab Oxycodone/Acetaminophen (Percocet 5/325 Mg Tab) 1 tab PO Q4 PRN PRN Reason: Pain, moderate (4-7) Stop: 08/29/17 11:08 Last Admin: 08/29/17 03:06 Dose: 1 tab Oxycodone/Acetaminophen (Percocet 5/325 Mg Tab) 2 tab PO Q4 PRN PRN Reason: Pain, severe (8-10) Stop: 08/29/17 11:08 Valsartan (Diovan) 80 mg PO DAILY [facility] Last Admin: 08/28/17 09:01 Dose: 80 mg Vitamin D (Vitamin D 400 Intl Units Tab) 400 intlu PO DAILY [facility] Last Admin: 08/28/17 09:03 Dose: 400 intlu - Labs Labs: 08/28/17 06:30 08/28/17 06:30 PT 12.3 Seconds (9.8-13.1) 08/24/17 15:53 INR 1.1 (0.9-1.2) 08/24/17 15:53 APTT 29.1 Seconds (25.6-37.1) 08/24/17 15:53 Assessment and Plan (1) Diabetic infection of right foot Status: Acute (2) Diabetes mellitus with hyperglycemia Status: Acute (3) PVD (peripheral vascular disease) Status: Acute (4) DVT prophylaxis Status: Inactive
[2017-08-29] MEDS: Enoxaparin 40 mg Syringe SC SCH (11:24)
[2017-08-29] MEDS: Multivitamin With Minerals Tab PO SCH (11:25)
[2017-08-29] MEDS: Cholecalciferol 400 Intl Units Tab PO SCH (11:25)
--- NOTE | 2017-08-29 11:35 | CP.PCM.PN ---
Subjective - Date & Time of Evaluation Date of Evaluation: 08/29/17 Time of Evaluation: 07:00 - Subjective Subjective: awake alert afebrile Objective - Vital Signs/Intake and Output Vital Signs (last 24 hours): Temp Pulse Resp BP Pulse Ox 98.0 F 66 19 142/80 97 08/29/17 07:56 08/29/17 07:56 08/29/17 07:56 08/29/17 07:56 08/29/17 07:56 - Medications Medications: Current Medications Acetaminophen (Tylenol 325mg Tab) 650 mg PO Q4 PRN PRN Reason: Pain, Mild (1-3) Last Admin: 08/28/17 18:16 Dose: 650 mg Enoxaparin Sodium (Lovenox) 40 mg SC DAILY [facility] PRN Reason: Protocol Last Admin: 08/29/17 11:24 Dose: 40 mg Vancomycin HCl 1 gm/ Sodium (Chloride) 250 mls @ 166.667 mls/hr IVPB Q12H [facility] PRN Reason: Protocol Last Admin: 08/29/17 09:00 Dose: 166.667 mls/hr Piperacillin Sod/Tazobactam (Sod 3.375 gm/ Sodium Chloride) 100 mls @ 100 mls/ hr IVPB Q6H [facility] PRN Reason: Protocol Last Admin: 08/29/17 05:45 Dose: 100 mls/hr Sodium Chloride (Sodium Chloride 0.9%) 1,000 mls @ 75 mls/hr IV .[id number] PRN PRN Reason: Hypotension Insulin Detemir (Levemir) 70 units SC HS [facility] Last Admin: 08/28/17 22:00 Dose: 70 units Insulin Human Lispro (Humalog) 0 units SC ACHS [facility] PRN Reason: Protocol Last Admin: 08/28/17 22:50 Dose: Not Given Insulin Human Lispro (Humalog) 34 units SC TIDAC [facility] Last Admin: 08/28/17 16:49 Dose: 34 units Lactobacillus Acidophilus (Bacid Acidophilus) 1 cap PO DAILY [facility] Last Admin: 08/28/17 09:00 Dose: 1 cap Multivitamins/Minerals (Therapeutic-M Tab) 1 tab PO DAILY [facility] Last Admin: 08/29/17 11:25 Dose: 1 tab Valsartan (Diovan) 80 mg PO DAILY [facility] Last Admin: 08/29/17 11:25 Dose: 80 mg Vitamin D (Vitamin D 400 Intl Units Tab) 400 intlu PO DAILY [facility] Last Admin: 08/29/17 11:25 Dose: 400 intlu - Labs Labs: 08/28/17 06:30 08/28/17 06:30 PT 12.3 Seconds (9.8-13.1) 08/24/17 15:53 INR 1.1 (0.9-1.2) 08/24/17 15:53 APTT 29.1 Seconds (25.6-37.1) 08/24/17 15:53 - Constitutional Appears: Non-toxic, Chronically Ill - Head Exam Head Exam: NORMOCEPHALIC - Eye Exam Eye Exam: PERRL - ENT Exam ENT Exam: Mucous Membranes Dry - Neck Exam Neck Exam: absent: Lymphadenopathy - Respiratory Exam Respiratory Exam: Decreased Breath Sounds - Cardiovascular Exam Cardiovascular Exam: REGULAR RHYTHM - GI/Abdominal Exam GI & Abdominal Exam: Distended, Soft - Rectal Exam Rectal Exam: Deferred - Exam Exam: NORMAL INSPECTION - Extremities Exam Extremities Exam: Pedal Edema. absent: Tenderness - Back Exam Back Exam: absent: CVA tenderness (L), CVA tenderness (R) - Neurological Exam Neurological Exam: Alert, Awake, Oriented x3 Assessment and Plan (1) Diabetic infection of right foot Status: Acute (2) Cellulitis in diabetic foot Status: Acute (3) Insulin dependent diabetes mellitus Status: Acute (4) Osteomyelitis Status: Acute (5) PVD (peripheral vascular disease) Status: Acute - Assessment and Plan (Free Text) Assessment: d/c on televancin 750 mg iv daily for 6 weeks
[2017-08-29] MEDS: Lactobacillus Acidophilus 500 MU Cap PO SCH (11:42)
--- NOTE | 2017-08-29 12:34 | CP.PCM.PN ---
Subjective - Date & Time of Evaluation Date of Evaluation: 08/29/17 Time of Evaluation: 12:32 - Subjective Subjective: Podiatry progress note for attending Dr. Oneil, 67 yo male seen at bedside 3 days s/p right fourth digit and partial met amputation, and left 2nd digit hammertoe correction. Patient is seen resting comfortably in bed and in no acute distress. Patient is AAO x3. Patient denies any pain to his feet. moderate strike through noted at the patients right foot dressing less than yesterday, a Patients left foot dressing was intact. Patient denies any acute overnight events. Patient denies F/N/V/C or SOB yesterday. Patient denies any other pedal complaint. Objective - Vital Signs/Intake and Output Vital Signs (last 24 hours): Temp Pulse Resp BP Pulse Ox 98.0 F 66 19 142/80 97 08/29/17 07:56 08/29/17 07:56 08/29/17 07:56 08/29/17 07:56 08/29/17 07:56 - Medications Medications: Current Medications Acetaminophen (Tylenol 325mg Tab) 650 mg PO Q4 PRN PRN Reason: Pain, Mild (1-3) Last Admin: 08/28/17 18:16 Dose: 650 mg Enoxaparin Sodium (Lovenox) 40 mg SC DAILY [facility] PRN Reason: Protocol Last Admin: 08/29/17 11:24 Dose: 40 mg Vancomycin HCl 1 gm/ Sodium (Chloride) 250 mls @ 166.667 mls/hr IVPB Q12H [facility] PRN Reason: Protocol Last Admin: 08/29/17 09:00 Dose: 166.667 mls/hr Piperacillin Sod/Tazobactam (Sod 3.375 gm/ Sodium Chloride) 100 mls @ 100 mls/ hr IVPB Q6H [facility] PRN Reason: Protocol Last Admin: 08/29/17 11:39 Dose: 100 mls/hr Sodium Chloride (Sodium Chloride 0.9%) 1,000 mls @ 75 mls/hr IV .[id number] PRN PRN Reason: Hypotension Insulin Detemir (Levemir) 70 units SC [facility] Last Admin: 08/28/17 22:00 Dose: 70 units Insulin Human Lispro (Humalog) 0 units SC [facility] PRN Reason: Protocol Last Admin: 08/29/17 11:34 Dose: 3 units Insulin Human Lispro (Humalog) 34 units SC TIDAC [facility] Last Admin: 08/29/17 11:34 Dose: 34 units Lactobacillus Acidophilus (Bacid Acidophilus) 1 cap PO DAILY [facility] Last Admin: 08/29/17 11:42 Dose: 1 cap Multivitamins/Minerals (Therapeutic-M Tab) 1 tab PO DAILY [facility] Last Admin: 08/29/17 11:25 Dose: 1 tab Valsartan (Diovan) 80 mg PO DAILY [facility] Last Admin: 08/29/17 11:25 Dose: 80 mg Vitamin D (Vitamin D 400 Intl Units Tab) 400 intlu PO DAILY [facility] Last Admin: 08/29/17 11:25 Dose: 400 intlu - Labs Labs: 08/28/17 06:30 08/28/17 06:30 PT 12.3 Seconds (9.8-13.1) 08/24/17 15:53 INR 1.1 (0.9-1.2) 08/24/17 15:53 APTT 29.1 Seconds (25.6-37.1) 08/24/17 15:53 - Constitutional Appears: Well, Non-toxic, No Acute Distress - Head Exam Head Exam: ATRAUMATIC, NORMOCEPHALIC - Extremities Exam Additional comments: Bilateral lower extremity focused exam: Vascular: DP/PT pulses are palpable 2/4, Cap refill <3 secs in all digits, Tem. gradient warm to warm, minimal edema and erythema noted on the right lateral aspect of the forefoot and left 2nd ray. Neuro: Gross sensation intact. Protective sensation diminished B/L. Derm: Right: 3 days s/p fourth ray amputation- 100% granular tissue noted, no malodor, no tunneling or tracking noted, mild Serous drainage, minimal luz- wound erythema and edema. Packing still in place. Moderate strike through the dressing of serous discharge. Left: Dressing kept intact. No strike through the dressing. MSK: no pain on palpation to the surgical site b/l. - Neurological Exam Neurological Exam: Alert, Awake, Oriented x3 - Psychiatric Exam Psychiatric exam: Normal Affect, Normal Mood Assessment and Plan - Assessment and Plan (Free Text) Assessment: 67 yo male 3 days s/p right fourth digit and partial metatarsal amputation and left 2nd digit hammertoe correction. Plan: Patient seen and evaluated at the bedside. Plan discussed with the attending, Dr. Oneil Chart, labs and vitals reviewed. Afebrile. X-ray 08/26: satisfactory post op results. OR Wound Cx: Strep Viridans OR Pathology: Pending Patients right foot packing kept in place and wound dressed with ABD and DSD and Romeo bandage. Patients left foot dressing kept intact. Patient advised to wear the surgical shoe at all times. Patient expressed verbal understanding. Podiatry will follow the patient while in house.
--- NOTE | 2017-08-29 15:43 | PN ---
DATE: 08/29/2017 ENDO FOLLOWUP NOTE LOCATION: In room 668. This is a 67-year-old male with recent uncontrolled type 2 insulin-requiring diabetes, now being followed closely for metabolic management. His glycemic levels are fluctuating but improved, and the latest glucose levels are ranging from 143-153 and 190 mg/dL. His chemistry showed a BUN of 12, sodium 141, potassium 3.7, chloride 101, CO2 of 31, glucose 113, and creatinine 0.8. He underwent a recent right fourth toe amputation with underlying gangrene and also a left second toe correction of his hammer toe as noted and has ongoing IV antibiotic management as given also because he had underlying right foot cellulitis. So at this time, we will continue the same basal and bolus insulin regimen given with Humalog given as 34 units subcu t.i.d. before meals as ordered. We will continue the Levemir given as 70 units subcu at bedtime daily as given. We will titrate incrementally as indicated to optimize metabolic control. We will follow. Nanette Blake MD
[2017-08-29] MEDS: Insulin Detemir 100 Units/ml Inj SC SCH (23:01)
[2017-08-30 00:58] VITALS: RESP 18
[2017-08-30] MEDS: Piperacillin/Tazobact 3.375 GM in Sodium Chloride 0.9% 100 ML IVPB SCH ×3 (06:00→12:00)
--- NOTE | 2017-08-30 06:26 | CP.PCM.PN ---
Subjective - Date & Time of Evaluation Date of Evaluation: 08/30/17 Time of Evaluation: 06:24 - Subjective Subjective: Podiatry progress note for attending Dr. Dodge, 67 yo male seen at bedside 4 days s/p right fourth digit and partial met amputation, and left 2nd digit hammertoe correction. Patient is seen resting comfortably in bed and in no acute distress. Patient is AAO x3. Patient denies any pain to his feet, Moderate strike through noted at the patients right foot. Patients left foot dressing was intact. Patient denies any acute overnight events. Patient denies F/N/V/C or SOB yesterday. Patient denies any other pedal complaint. Objective - Vital Signs/Intake and Output Vital Signs (last 24 hours): Temp Pulse Resp BP Pulse Ox 98.1 F 64 18 134/84 98 08/30/17 00:00 08/30/17 00:00 08/30/17 00:00 08/30/17 00:00 08/30/17 00:00 - Medications Medications: Current Medications Acetaminophen (Tylenol 325mg Tab) 650 mg PO Q4 PRN PRN Reason: Pain, Mild (1-3) Last Admin: 08/28/17 18:16 Dose: 650 mg Vancomycin HCl 1 gm/ Sodium (Chloride) 250 mls @ 166.667 mls/hr IVPB Q12H [facility] PRN Reason: Protocol Last Admin: 08/29/17 20:30 Dose: 166.667 mls/hr Piperacillin Sod/Tazobactam (Sod 3.375 gm/ Sodium Chloride) 100 mls @ 100 mls/ hr IVPB Q6H [facility] PRN Reason: Protocol Last Admin: 08/30/17 06:00 Dose: 100 mls/hr Sodium Chloride (Sodium Chloride 0.9%) 1,000 mls @ 75 mls/hr IV .[id number] PRN PRN Reason: Hypotension Insulin Detemir (Levemir) 70 units SC HS [facility] Last Admin: 08/29/17 23:01 Dose: 70 units Insulin Human Lispro (Humalog) 0 units SC ACHS [facility] PRN Reason: Protocol Last Admin: 08/29/17 23:03 Dose: Not Given Insulin Human Lispro (Humalog) 34 units SC TIDAC [facility] Last Admin: 08/29/17 16:44 Dose: 34 units Lactobacillus Acidophilus (Bacid Acidophilus) 1 cap PO DAILY [facility] Last Admin: 08/29/17 11:42 Dose: 1 cap Multivitamins/Minerals (Therapeutic-M Tab) 1 tab PO DAILY [facility] Last Admin: 08/29/17 11:25 Dose: 1 tab Valsartan (Diovan) 80 mg PO DAILY [facility] Last Admin: 08/29/17 11:25 Dose: 80 mg Vitamin D (Vitamin D 400 Intl Units Tab) 400 intlu PO DAILY [facility] Last Admin: 08/29/17 11:25 Dose: 400 intlu - Labs Labs: 08/28/17 06:30 08/28/17 06:30 PT 12.3 Seconds (9.8-13.1) 08/24/17 15:53 INR 1.1 (0.9-1.2) 08/24/17 15:53 APTT 29.1 Seconds (25.6-37.1) 08/24/17 15:53 - Constitutional Appears: Well, Non-toxic, No Acute Distress - Head Exam Head Exam: ATRAUMATIC, NORMOCEPHALIC - Extremities Exam Additional comments: Bilateral lower extremity focused exam: Vascular: DP/PT pulses are palpable 2/4, Cap refill <3 secs in all digits, Tem. gradient warm to warm, minimal edema and erythema noted on the right lateral aspect of the forefoot and left 2nd ray. Neuro: Gross sensation intact. Protective sensation diminished B/L. Derm: Right: 4 days s/p fourth ray amputation- 100% granular tissue noted with , no malodor, no tunneling or tracking noted, mild Serous drainage, minimal luz -wound erythema and edema. Packing still in place. Moderate strike through the dressing of serous discharge. Left: Dressing kept intact. No strike through the dressing. MSK: no pain on palpation to the surgical site b/l. - Neurological Exam Neurological Exam: Alert, Awake, Oriented x3 - Psychiatric Exam Psychiatric exam: Normal Affect, Normal Mood Assessment and Plan - Assessment and Plan (Free Text) Assessment: 67 yo male 4 days s/p right fourth digit and partial metatarsal amputation and left 2nd digit hammertoe correction Plan: Patient seen and evaluated at the bedside Plan discussed with the attending, Dr. Dodge Chart, labs and vitals reviewed- Afebrile X-ray 08/26: satisfactory post op results OR Wound Cx: Strep Viridans OR Pathology: Pending Patients Right foot packing removed and wound dressed with Adaptic, ABD, DSD and TRACY Patients left foot dressing kept intact Patient advised to wear the surgical shoe at all times As per ID, patient to be placed on 6 weeks of IV Abx, Televancin Patient to be discharged today and patient will follow up in Dr. Dodge wound care center Patient expressed verbal understanding Podiatry will follow the patient while in house
--- NOTE | 2017-08-30 07:59 | CP.PCM.PN ---
Subjective - Date & Time of Evaluation Date of Evaluation: 08/29/17 Time of Evaluation: 10:45 - Subjective Subjective: Seen and examined at the bed side. No fever or chills. Right PICC Line Objective - Vital Signs/Intake and Output Vital Signs (last 24 hours): Temp Pulse Resp BP Pulse Ox 98.1 F 64 18 134/84 98 08/30/17 00:00 08/30/17 00:00 08/30/17 00:00 08/30/17 00:00 08/30/17 00:00 - Medications Medications: Current Medications Acetaminophen (Tylenol 325mg Tab) 650 mg PO Q4 PRN PRN Reason: Pain, Mild (1-3) Last Admin: 08/28/17 18:16 Dose: 650 mg Vancomycin HCl 1 gm/ Sodium (Chloride) 250 mls @ 166.667 mls/hr IVPB Q12H [facility] PRN Reason: Protocol Last Admin: 08/29/17 20:30 Dose: 166.667 mls/hr Piperacillin Sod/Tazobactam (Sod 3.375 gm/ Sodium Chloride) 100 mls @ 100 mls/ hr IVPB Q6H [facility] PRN Reason: Protocol Last Admin: 08/30/17 06:00 Dose: 100 mls/hr Sodium Chloride (Sodium Chloride 0.9%) 1,000 mls @ 75 mls/hr IV .[id number] PRN PRN Reason: Hypotension Insulin Detemir (Levemir) 70 units SC HS [facility] Last Admin: 08/29/17 23:01 Dose: 70 units Insulin Human Lispro (Humalog) 0 units SC ACHS [facility] PRN Reason: Protocol Last Admin: 08/29/17 23:03 Dose: Not Given Insulin Human Lispro (Humalog) 34 units SC TIDAC [facility] Last Admin: 08/29/17 16:44 Dose: 34 units Lactobacillus Acidophilus (Bacid Acidophilus) 1 cap PO DAILY [facility] Last Admin: 08/29/17 11:42 Dose: 1 cap Multivitamins/Minerals (Therapeutic-M Tab) 1 tab PO DAILY [facility] Last Admin: 08/29/17 11:25 Dose: 1 tab Valsartan (Diovan) 80 mg PO DAILY [facility] Last Admin: 08/29/17 11:25 Dose: 80 mg Vitamin D (Vitamin D 400 Intl Units Tab) 400 intlu PO DAILY [facility] Last Admin: 08/29/17 11:25 Dose: 400 intlu - Labs Labs: 08/28/17 06:30 08/28/17 06:30 PT 12.3 Seconds (9.8-13.1) 08/24/17 15:53 INR 1.1 (0.9-1.2) 08/24/17 15:53 APTT 29.1 Seconds (25.6-37.1) 08/24/17 15:53 - Constitutional Appears: Well, No Acute Distress - Head Exam Head Exam: ATRAUMATIC, NORMAL INSPECTION, NORMOCEPHALIC - Eye Exam Eye Exam: EOMI, Normal appearance, PERRL Pupil Exam: NORMAL ACCOMODATION, PERRL - ENT Exam ENT Exam: Mucous Membranes Moist, Normal Exam - Neck Exam Neck Exam: Full ROM, Normal Inspection. absent: Lymphadenopathy - Respiratory Exam Respiratory Exam: Clear to Ausculation Bilateral, NORMAL BREATHING PATTERN - Cardiovascular Exam Cardiovascular Exam: REGULAR RHYTHM, +S1, +S2. absent: Murmur - GI/Abdominal Exam GI & Abdominal Exam: Soft, Normal Bowel Sounds. absent: Tenderness - Extremities Exam Extremities Exam: Full ROM. absent: Joint Swelling - Back Exam Back Exam: NORMAL INSPECTION - Neurological Exam Neurological Exam: Alert, Awake, CN II-XII Intact, Normal Gait, Oriented x3 - Psychiatric Exam Psychiatric exam: Normal Affect, Normal Mood - Skin Skin Exam: Dry, Intact, Normal Color, Warm Assessment and Plan (1) Diabetic infection of right foot Status: Acute (2) Diabetes mellitus with hyperglycemia Status: Acute (3) PVD (peripheral vascular disease) Status: Chronic (4) DVT prophylaxis Status: Inactive
[2017-08-30] MEDS: Insulin Lispro (humaLOG) 100 Units/ml Inj SC SCH ×4 (08:19→13:59)
[2017-08-30 08:35] VITALS: BP 131/67; PULSE 63; TEMP 97.5; O2SAT 95
[2017-08-30] MEDS: Multivitamin With Minerals Tab PO SCH (09:21)
[2017-08-30] MEDS: Cholecalciferol 400 Intl Units Tab PO SCH (09:22)
[2017-08-30] MEDS: Lactobacillus Acidophilus 500 MU Cap PO SCH (09:24)
--- NOTE | 2017-08-30 11:32 | CP.PCM.PN ---
Subjective - Date & Time of Evaluation Date of Evaluation: 08/30/17 Time of Evaluation: 08:00 - Subjective Subjective: 67 yo male seen at bedside 4 days s/p right fourth digit and partial met amputation, Objective - Vital Signs/Intake and Output Vital Signs (last 24 hours): Temp Pulse Resp BP Pulse Ox 97.5 F L 63 18 131/67 95 08/30/17 08:34 08/30/17 08:34 08/30/17 08:34 08/30/17 08:34 08/30/17 08:34 - Medications Medications: Current Medications Acetaminophen (Tylenol 325mg Tab) 650 mg PO Q4 PRN PRN Reason: Pain, Mild (1-3) Last Admin: 08/28/17 18:16 Dose: 650 mg Vancomycin HCl 1 gm/ Sodium (Chloride) 250 mls @ 166.667 mls/hr IVPB Q12H [facility] PRN Reason: Protocol Last Admin: 08/30/17 09:25 Dose: 166.667 mls/hr Piperacillin Sod/Tazobactam (Sod 3.375 gm/ Sodium Chloride) 100 mls @ 100 mls/ hr IVPB Q6H [facility] PRN Reason: Protocol Last Admin: 08/30/17 06:00 Dose: 100 mls/hr Sodium Chloride (Sodium Chloride 0.9%) 1,000 mls @ 75 mls/hr IV .[id number] PRN PRN Reason: Hypotension Insulin Detemir (Levemir) 70 units SC HS [facility] Last Admin: 08/29/17 23:01 Dose: 70 units Insulin Human Lispro (Humalog) 0 units SC ACHS [facility] PRN Reason: Protocol Last Admin: 08/30/17 08:19 Dose: Not Given Insulin Human Lispro (Humalog) 34 units SC TIDAC [facility] Last Admin: 08/30/17 09:20 Dose: 34 units Lactobacillus Acidophilus (Bacid Acidophilus) 1 cap PO DAILY [facility] Last Admin: 08/30/17 09:24 Dose: 1 cap Multivitamins/Minerals (Therapeutic-M Tab) 1 tab PO DAILY [facility] Last Admin: 08/30/17 09:21 Dose: 1 tab Valsartan (Diovan) 80 mg PO DAILY [facility] Last Admin: 08/30/17 09:21 Dose: 80 mg Vitamin D (Vitamin D 400 Intl Units Tab) 400 intlu PO DAILY [facility] Last Admin: 08/30/17 09:22 Dose: 400 intlu - Labs Labs: 08/28/17 06:30 08/28/17 06:30 PT 12.3 Seconds (9.8-13.1) 08/24/17 15:53 INR 1.1 (0.9-1.2) 08/24/17 15:53 APTT 29.1 Seconds (25.6-37.1) 08/24/17 15:53 - Constitutional Appears: Well - Head Exam Head Exam: ATRAUMATIC, NORMAL INSPECTION, NORMOCEPHALIC - Eye Exam Eye Exam: EOMI, Normal appearance, PERRL Pupil Exam: NORMAL ACCOMODATION, PERRL - ENT Exam ENT Exam: Mucous Membranes Moist, Normal Exam - Neck Exam Neck Exam: Full ROM, Normal Inspection. absent: Lymphadenopathy - Respiratory Exam Respiratory Exam: Clear to Ausculation Bilateral, NORMAL BREATHING PATTERN - Cardiovascular Exam Cardiovascular Exam: REGULAR RHYTHM, +S1, +S2. absent: Murmur - GI/Abdominal Exam GI & Abdominal Exam: Soft, Normal Bowel Sounds. absent: Tenderness - Rectal Exam Rectal Exam: NORMAL INSPECTION - Exam Exam: Circumcision, NORMAL INSPECTION - Extremities Exam Extremities Exam: Full ROM, Normal Capillary Refill, Normal Inspection. absent : Joint Swelling, Pedal Edema - Back Exam Back Exam: NORMAL INSPECTION Additional comments: Vascular: DP/PT pulses are palpable 2/4, Cap refill <3 secs in all digits, Tem. gradient warm to warm, minimal edema and erythema noted on the right lateral aspect of the forefoot and left 2nd ray. Neuro: Gross sensation intact. Protective sensation diminished B/L. Derm: Right: 4 days s/p fourth ray amputation- 100% granular tissue noted with , no malodor, no tunneling or tracking noted, mild Serous drainage, minimal luz -wound erythema and edema. Packing still in place. Moderate strike through the dressing of serous discharge. Left: Dressing kept intact. No strike through the dressing. MSK: no pain on palpation to the surgical site b/l. - Neurological Exam Neurological Exam: Alert, Awake, CN II-XII Intact, Normal Gait, Oriented x3 - Psychiatric Exam Psychiatric exam: Normal Affect, Normal Mood - Skin Skin Exam: Dry, Intact, Normal Color, Warm Assessment and Plan (1) Diabetic infection of right foot Status: Acute (2) Cellulitis in diabetic foot Status: Acute (3) Insulin dependent diabetes mellitus Status: Acute (4) Osteomyelitis Status: Acute (5) PVD (peripheral vascular disease) Status: Acute - Assessment and Plan (Free Text) Assessment: cont iv rx with out pt podiatry follow up at least once weekly
--- NOTE | 2017-08-30 14:03 | CP.PCM.PCO ---
Assessment & Plan - Assessment and Plan (Free Text) Assessment: pt. cleared for discharge to home today by and RX for Telavancin 750 mg ivpb daily x 6 weeks as per recommendation given to ALEXIA Veronica- pt. will be f/u with vns/ infusion Rx for labs provided, monitor cbc, cmp for nephrotoxicity f/u with cont. wound care
--- NOTE | 2017-08-30 16:44 | PN ---
DATE: 08/30/2017 ENDO FOLLOWUP NOTE LOCATION: In room 668, bed 2. SUBJECTIVE: This is a 67-year-old male with known history of type 2 insulin-requiring diabetes with extremes of glycemic fluctuations, presenting here with the right foot cellulitis and gangrene in the right fourth toe for which he underwent an amputation thereof and is now receiving ongoing IV antibiotic management as given and noted. His glycemic levels are fluctuating and have ranged from 208 to 211 and 217 mg/dL. His latest chemistries showed a BUN of 12, sodium 141, potassium 3.7, chloride 101, CO2 of 31, glucose 113, and creatinine 0.8. His hemoglobin A1c was 8.8%. ASSESSMENT AND PLAN: So at this time, we will continue the same basal and bolus insulin drug combination to optimize metabolic control. We will continue his Humalog given as 34 units subcutaneously t.i.d. before meals as ordered. We will continue the Levemir given as 70 units subcutaneously at bedtime daily as given. We will titrate incrementally as indicated to optimize metabolic control. We will obtain serial chemistries and supplement accordingly as needed. We will follow. Nanette Blake MD
--- NOTE | 2017-08-31 07:44 | CP.PCM.PN ---
Subjective - Date & Time of Evaluation Date of Evaluation: 08/26/17 Time of Evaluation: 11:30 Objective - Vital Signs/Intake and Output Vital Signs (last 24 hours): Temp Pulse Resp BP Pulse Ox 97.5 F L 63 18 131/67 95 08/30/17 08:34 08/30/17 08:34 08/30/17 08:34 08/30/17 08:34 08/30/17 08:34 - Labs Labs: 08/28/17 06:30 08/28/17 06:30 PT 12.3 Seconds (9.8-13.1) 08/24/17 15:53 INR 1.1 (0.9-1.2) 08/24/17 15:53 APTT 29.1 Seconds (25.6-37.1) 08/24/17 15:53 - Extremities Exam Additional comments: Wound Dressed and going for OR Today. Assessment and Plan (1) Diabetic infection of right foot Assessment & Plan: OM Continue IV Vancomycin & Zosyn Status: Acute (2) Diabetes mellitus with hyperglycemia Status: Acute (3) PVD (peripheral vascular disease) Status: Chronic (4) DVT prophylaxis Status: Inactive
--- NOTE | 2017-08-31 07:46 | CP.PCM.DIS ---
Provider - Provider Date of Admission: 08/24/17 15:58 Attending physician: Natan Carbajal MD Time Spent in preparation of Discharge (in minutes): 35 Diagnosis - Discharge Diagnosis (1) Diabetic infection of right foot Status: Acute Priority: High Comment: OM S/P Removal of Right @nd Degit and Part of Metatarsal (2) Diabetes mellitus with hyperglycemia Status: Acute Priority: Medium (3) PVD (peripheral vascular disease) Status: Chronic Priority: Medium (4) DVT prophylaxis Status: Inactive Priority: Medium Hospital Course - Lab Results Lab Results: Micro Results 08/24/17 15:30 Blood Blood Culture - Final NO GROWTH AFTER 5 DAYS 08/24/17 15:30 Blood Gram Stain - Final TEST NOT PERFORMED 08/24/17 15:30 Blood Blood Culture - Final NO GROWTH AFTER 5 DAYS 08/24/17 15:30 Blood Gram Stain - Final TEST NOT PERFORMED 08/26/17 11:35 Foot - Right Gram Stain - Final 08/26/17 11:35 Foot - Right Wound Culture - Final Streptococcus Viridans 08/26/17 11:30 Foot - Right Gram Stain - Final 08/26/17 11:30 Foot - Right Wound Culture - Final Streptococcus Viridans 08/26/17 11:30 Foot - Right Gram Stain - Final 08/26/17 11:30 Foot - Right Wound Culture - Final Streptococcus Viridans 08/26/17 11:35 Foot - Right Gram Stain - Final 08/26/17 11:35 Foot - Right Wound Culture - Final Streptococcus Viridans 08/24/17 08:11 Foot - Left Gram Stain - Final 08/24/17 08:11 Foot - Left Wound Culture - Final Coagulase Neg Staphylococcus 08/24/17 15:53 Foot - Right Gram Stain - Final 08/24/17 15:53 Foot - Right Wound Culture - Final Staphylococcus Aureus 08/24/17 16:10 Foot - Right Gram Stain - Final 08/24/17 16:10 Foot - Right Wound Culture - Final Staphylococcus Aureus 08/24/17 17:00 Foot - Left Gram Stain - Final 08/24/17 17:00 Foot - Left Wound Culture - Final Staphylococcus Aureus Most Recent Lab Values WBC 6.7 K/uL (4.8-10.8) 08/28/17 06:30 RBC 3.81 Mil/uL (4.40-5.90) L 08/28/17 06:30 Hgb 13.0 g/dL (12.0-18.0) 08/28/17 06:30 Hct 37.8 % (35.0-51.0) 08/28/17 06:30 MCV 99.2 fl (80.0-94.0) H 08/28/17 06:30 MCH 34.0 pg (27.0-31.0) H 08/28/17 06:30 MCHC 34.3 g/dL (33.0-37.0) 08/28/17 06:30 RDW 13.5 % (11.5-14.5) 08/28/17 06:30 Plt Count 222 K/uL (130-400) 08/28/17 06:30 MPV 8.9 fl (7.2-11.7) 08/24/17 15:53 Neut % (Auto) 72.1 % (50.0-75.0) 08/24/17 15:53 Lymph % (Auto) 12.2 % (20.0-40.0) L 08/24/17 15:53 Curry % (Auto) 13.3 % (0.0-10.0) H 08/24/17 15:53 Eos % (Auto) 1.4 % (0.0-4.0) 08/24/17 15:53 Baso % (Auto) 1.0 % (0.0-2.0) 08/24/17 15:53 Neut # (Auto) 5.9 K/uL (1.8-7.0) 08/24/17 15:53 Lymph # (Auto) 1.0 K/uL (1.0-4.3) 08/24/17 15:53 Curry # (Auto) 1.1 K/uL (0.0-0.8) H 08/24/17 15:53 Eos # (Auto) 0.1 K/uL (0.0-0.7) 08/24/17 15:53 Baso # (Auto) 0.1 K/uL (0.0-0.2) 08/24/17 15:53 ESR 89 mm/hr (0-20) H 08/25/17 11:01 PT 12.3 Seconds (9.8-13.1) 08/24/17 15:53 INR 1.1 (0.9-1.2) 08/24/17 15:53 APTT 29.1 Seconds (25.6-37.1) 08/24/17 15:53 pO2 13 mm/Hg (30-55) L 08/24/17 15:49 VBG pH 7.33 (7.32-7.43) 08/24/17 15:49 VBG pCO2 51 mmHg (40-60) 08/24/17 15:49 VBG HCO3 22.8 mmol/L 08/24/17 15:49 VBG Total CO2 28.5 mmol/L (22-28) H 08/24/17 15:49 VBG O2 Sat (Calc) 29.5 % (40-65) L 08/24/17 15:49 VBG Base Excess 0.2 mmol/L (0.0-2.0) 08/24/17 15:49 VBG Potassium 5.2 mmol/L (3.6-5.2) 08/24/17 15:49 Sodium 137.0 mmol/L (132-148) 08/24/17 15:49 Chloride 96.0 mmol/L (98-107) L 08/24/17 15:49 Glucose 294 mg/dL (75-110) H 08/24/17 15:49 Lactate 1.5 mmol/L (0.7-2.1) 08/24/17 15:49 FiO2 21.0 % 08/24/17 15:49 Sodium 141 mmol/l (132-148) 08/28/17 06:30 Potassium 3.7 MMOL/L (3.6-5.0) 08/28/17 06:30 Chloride 101 mmol/L (98-107) 08/28/17 06:30 Carbon Dioxide 31 mmol/L (22-30) H 08/28/17 06:30 Anion Gap 13 (10-20) 08/28/17 06:30 BUN 12 mg/dl (9-20) 08/28/17 06:30 Creatinine 0.8 mg/dl (0.8-1.5) 08/28/17 06:30 Est GFR ( Amer) > 60 08/28/17 06:30 Est GFR (Non-Af Amer) > 60 08/28/17 06:30 POC Glucose (mg/dL) 192 mg/dL (65-110) H 08/30/17 11:50 Random Glucose 113 mg/dL (75-110) H 08/28/17 06:30 Hemoglobin A1c 8.8 % (4.2-6.5) H 08/25/17 10:12 Calcium 9.2 mg/dL (8.4-10.2) 08/28/17 06:30 Phosphorus 4.4 mg/dl (2.5-4.5) 08/24/17 15:53 Magnesium 1.9 MG/DL (1.6-2.3) 08/24/17 15:53 Total Bilirubin 0.4 mg/dl (0.2-1.3) 08/26/17 05:15 AST 32 U/L (17-59) 08/26/17 05:15 ALT 22 U/L (21-72) 08/26/17 05:15 Alkaline Phosphatase 66 U/L (38-126) 08/26/17 05:15 Total Protein 6.6 G/DL (6.3-8.2) 08/26/17 05:15 Albumin 3.4 g/dL (3.5-5.0) L 08/26/17 05:15 Globulin 3.2 gm/dL (2.2-3.9) 08/26/17 05:15 Albumin/Globulin Ratio 1.0 (1.0-2.1) 08/26/17 05:15 Triglycerides 86 mg/DL (0-149) D 08/26/17 05:15 Cholesterol 174 mg/dL (0-199) 08/26/17 05:15 LDL Cholesterol Direct 133 mg/dL (0-129) H 08/26/17 05:15 HDL Cholesterol 18 MG/DL (30-70) L 08/26/17 05:15 TSH 3rd Generation 1.20 mIU/ML (0.46-4.68) 08/25/17 10:12 Venous Blood Potassium 5.2 mmol/L (3.6-5.2) 08/24/17 15:49 Vancomycin Trough 6.1 ug/mL (5.0-10.0) 08/26/17 05:15 Blood Type B POSITIVE 08/24/17 15:53 Antibody Screen Negative 08/24/17 15:53 BBK History Checked Patient has bt 08/24/17 15:53 Discharge Exam - Head Exam Head Exam: ATRAUMATIC, NORMAL INSPECTION, NORMOCEPHALIC Discharge Plan - Discharge Medications Prescriptions: Valsartan [Diovan] 80 mg PO DAILY #30 tab Telavancin Hydrochloride [Vibativ] 750 mg IV DAILY #42 pds - Follow Up Plan Condition: FAIR Disposition: HOME/ ROUTINE Instructions: Peripherally-Inserted Central Catheter (DC), Amputation of the Foot or Toe (DC), Diabetes and Diet Additional Instructions: pt. cleared for discharge to home today by and RX for Telavancin 750 mg ivpb daily x 6 weeks as per Rx for labs provided, monitor cbc, cmp for nephrotoxicity f/u with [facility]. [phone] follow up with primary MD 1 week Referrals: Jurgen Oneil DPM [Family Provider] - Rosalino Dhaliwal MD [Staff Provider] -
== END 2017-08-30 14:55 | disposition home or self-care (01) | DRG 240 ==
LOC: H.ER 14:27 → H.ERHOLD 15:58 → H.MEDSURG1 21:13
PROVIDERS: ADMIT Internal Medicine; ATTEND Internal Medicine
PROC: 0STQ0ZZ Resection of Left Toe Phalangeal Joint, Open Approach (ICD-10-PCS; 2017-08-26)
PROC: 0Y6M0Z7 Detachment at Right Foot, Complete 4th Ray, Open Approach (ICD-10-PCS; principal; 2017-08-26 09:30)
PROC: 0QBQ0ZZ Excision of Right Toe Phalanx, Open Approach (ICD-10-PCS; 2017-08-26 09:30)
PROC: 05HY33Z Insertion of Infusion Device into Upper Vein, Percutaneous Approach (ICD-10-PCS; 2017-08-27)
PROC: B54MZZA Ultrasonography of Right Upper Extremity Veins, Guidance (ICD-10-PCS; 2017-08-27)
DX: E11.52 Type 2 diabetes mellitus with diabetic peripheral angiopathy with gangrene (principal); L03.115 Cellulitis of right lower limb; M86.172 Other acute osteomyelitis, left ankle and foot; M86.171 Other acute osteomyelitis, right ankle and foot; E11.69 Type 2 diabetes mellitus with other specified complication; E11.621 Type 2 diabetes mellitus with foot ulcer; E11.319 Type 2 diabetes mellitus with unspecified diabetic retinopathy without macular edema; E29.1 Testicular hypofunction; E78.5 Hyperlipidemia, unspecified; E11.42 Type 2 diabetes mellitus with diabetic polyneuropathy; E11.65 Type 2 diabetes mellitus with hyperglycemia; I10 Essential (primary) hypertension; L97.519 Non-pressure chronic ulcer of other part of right foot with unspecified severity; M20.42 Other hammer toe(s) (acquired), left foot; Z79.4 Long term (current) use of insulin; Z85.820 Personal history of malignant melanoma of skin; Z89.421 Acquired absence of other right toe(s); Z88.1 Allergy status to other antibiotic agents